=== PATIENT | female | born 1945 | race Hispanic/Latino ===

== ENCOUNTER 2023-05-05 20:30 | Inpatient (IN) | payer OTHER ==
--- OUTSIDE RECORDS SUMMARY | 2023-05-05 20:37 | XMS REPORT | Continuity of Care Document ---
:1945 Author Organization [facility] t Address [address] [facility] [address] [place] [address] Care Team Providers Name Role Phone Magdy Mehta Primary Care Physician Melissa Patel MA Attending Clinician Unavailable Tyson MONDRAGON, Magdy Perez Attending Clinician [phone] Ana MONDRAGON, Jonatan Bourgeois Attending Clinician KATHARINE LAUREANO Attending Clinician Unavailable Katharine Laureano DO Attending Clinician Dexter MONDRAGON, Sabrina Thomas Attending Clinician [phone] Liu Burton RN Attending Clinician Unavailable Giovanni MONDRAGON, Ward Duval Attending Clinician Massimo Daigle MD Attending Clinician Be Bush Attending Clinician Siria Ceron Attending Clinician KENDRA CULP Attending Clinician Unavailable Kendra Gleason Attending Clinician Tory Wallace MA Attending Clinician Unavailable Rocael Blair MD Attending Clinician Aide MONDRAGON, Bob Aquino Attending Clinician Joselin Salinas MA Attending Clinician Unavailable Donnie Bray DO Attending Clinician DONNIE BRAY Attending Clinician Unavailable Cristina Sage MD Attending Clinician Delmy Johnson MD Attending Clinician [phone] DALE PUENTES Attending Clinician Unavailable MD MAGDY MEHTA Attending Clinician UnavailNAVA Lowe Attending Clinician Unavailable BE BUSH Admitting Clinician Unavailable KENDRA CULP Admitting Clinician Unavailable BOB LOVE Admitting Clinician Unavailable MD MAGDY MEHTA Admitting Clinician UnavailNAVA Lowe Admitting Clinician Unavailable Payers Payer Name Policy Type Policy Number Effective Date Expiration Date Ortiz huang AETNA MEDICARE OUT [id number] 2020 OF 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 08-15 st 00:00: Hospita 00 l Rheumatoid Rheumatoid Disease Active 2018-07 M ethodi arthritis arthritis 08-15 st involving involving 00:00: Hosp ila multiple multiple 00 l sites sites Other Other Disease Active 2018-07 Methodi heart heart 08-15 st failure failure 00:00: Hospita 00 l FILI (acute FILI (acute Disease Active M ethodi kidney kidney 8-20 st injury) injury) 00:00: Hospita 00 l HTN HTN Disease Active 2018-0 Methodi (hypertens (hypertens 8-18 st ion) ion) 00:00: Hospita 00 l Hypothyroi Hypothyroi Disease Active M ethodi dism dism 818 st 00:00: Hospita 00 l Obesity Obesity Disease Active Methodi 8-18 st 00:00: Hospita 00 l CHF CHF Disease Active Methodi exacerbati exacerbati 8-17 st on on 00:00: Hospita 00 l Dizzy Dizzy Disease Active Methodi 2-10 st 00:00: Hospita 00 l Dizziness Dizziness Disease Active Met hodi 2-09 st 00:00: Hospita 00 l Cardiomyop Cardiomyop Disease Active Overview : Methodi athy athy Formattin st g of this Hospita note l might be different from the original. EF 30% (), 40% (07/31), 55% (09/06); N.Stress- ischemia stable (07/31), Dr Muhammad h Lupus Lupus Disease Active Overview: Method i Formattin st g of this Hospita note l might be different from the original. Hemolytic anemia, RAFAL +, MELISSA +, Dr Luke Prediabete Prediabete Disease Active Overview : Methodi s s Formattin st g of this Hospita note l might be different from the original. 6.1% (10/16) Allergies, Adverse Reactions, Alerts Allergy Allergy Status Severity Reaction(s) Onset Inactive Treating Comm ents Source Name Type Date Date Clinician Hydrocod Propensi Active Other - See insomnia Univers one ty to comments 7-15 ity of adverse 00:00: [place] reaction 00 Medical s Branch HYDROCOD DRUG Active Other-Cmnt Univ ers ONE INGREDI 7-15 ity of 00:00: [place] 00 Medical Branch Family History Family Member Diagnosis Comments Start Date Stop Date Source Natural father Heart disease [facility] Natural mother Heart disease [facility] Natural son [facility] Social History Social Habit Start Date Stop Date Quantity Comments Source Sexual orientation [facility] Gender identity [facility] Alcohol intake 2023-01-28 2023-01-28 Current [place] 00:00:00 00:00:00 non-drinker of Hospital alcohol (finding) History of Social 2023-01-28 2023-01-[address] function 00:00:00 00:00:00 Hospital Tobacco use and 2022-07-24 2022-07-24 Smokeless [place] exposure 00:00:00 00:00:00 tobacco non-user Hospital Exposure to 2022-07-04 2022-07-14 [facility] 10:53:00 [facility] Sex Ass[birth year] At [birth year] [place] 00:00:00 00:00:00 Hospital Smoking Status Start Date Stop Date Source Never smoked tobacco [facility] Medications Ordered Filled Start Stop Current Ordering Indication Dosage Frequency Signature Comments Components Source Medication Medication Date Date Medication? Clinician (SIG) Name Name lisinopriL 2023- Yes 10mg QD Take 1 Meth yvrose (PRINIVIL) 03-20 tablet (10 st 10 mg 00:00: 04:59 mg total) Hospit a tablet 00 :00 by mouth l daily. FENTanyl PF No 50ug 50 mcg, Un adal (SUBLIMAZE 03-07 Intramuscu it y of (PF)) 20:00: 20:19 lar, ONCE, [place] injection 00 :00 1 dose, On Medi aminta 50 mcg Sat Branch 03/07/23 at 1500, Routine ketorolac 2022- No 30mg 30 mg, Unive rs (TORADOL) 03-07 Intramuscu ity of injection 20:00: 20:19 [place], [place]CE[place] 30 mg 00 :00 1 dose, On Medical Sat Branch 03/07/23 at 1500, Routine dexamethaso 2022- No 10mg 10 mg, Uni vers ne sod phos 03-07 Oral, ity of PF 19:15: 20:19 ONCE, 1 [place] injection 00 :00 dose, On Medica l 10 mg [facility] Branch 03/07/23 at 1415, 1 mL predniSONE Yes 5mg QD Take 1 Metho di (DELTASONE) 7-12 tablet (5 st 5 mg tablet 08:12: mg total) H ospita 26 by mouth l daily. hydroxychlo Yes 200mg Q.5D Take 1 Met hodi roquine 7-[address] (PLAQUENIL) 08:12: (200 mg Hos owen 200 mg 26 total) by l tablet mouth 2 (two) times a day. Patient takes 200mg in the am and 100mg in the pm leflunomide 2022-0 Yes 20mg Q7D Take 1 Meth yvrose (ARAVA) 20 7-12 tablet (20 st MG tablet 08:12: mg total) Hos owen 26 by mouth l once a week. apixaban 2022-0 2023- [place] [id number] 5mg Q.5D Take 1 Metho di (ELIQUIS) 5 -06 25-12 tablet (5 st mg tablet 00:00: 04:59 mg total) Ho spita 00 :00 by mouth 2 l (two) times a day .treatment to prevent blood clots in chronic atrial fibrillati on. furosemide 2023- No 40mg QD Take 1 Meth yvrose (LASIX) 40 01-28-12 tablet (40 st mg tablet 00:00: 04:59 mg total) Ho spita 00 :00 by mouth l daily. furosemide 2022-0 2022- No 40mg QD Take 1 Meth yvrose (LASIX) 40 6-06 02-12 tablet (40 st mg tablet 00:00: 00:00 mg total) Ho spita 00 :00 by mouth l every morning. ondansetron 2022-0 Yes 4mg Q8H Take 1 Meth yvrose (Zofran) 4 6-20 tablet (4 st MG tablet 00:00: mg total) Hos owen 00 by mouth l every 8 (eight) hours as needed for nausea or vomiting. furosemide 2022-0 2022- No 20mg QD Take 1 Meth yvrose (LASIX) 20 6-10 23-04 tablet (20 st mg tablet 17:28: 00:00 mg total) Ho spita 59 :00 by mouth l every morning. apixaban 2022-0 2022- [place] [id number] 5mg Q.5D Take 1 Metho di (ELIQUIS) 5 6- 07-12 tablet (5 st mg tablet 00:00: 00:00 mg total) Ho spita 00 :00 by mouth 2 l (two) times a day .treatment to prevent blood clots in chronic atrial fibrillati on. furosemide 2022-0 2022- No 40mg Q.5D Take 1 Meth yvrose (LASIX) 40 12-21- tablet (40 st mg tablet 00:00: 00:00 mg total) Ho spita 00 :00 by mouth 2 l (two) times a day for 30 days. sacubitriL- 2022- No 1{tbl} Q.5D Take 1 M ethodi valsartan 12-[address] (ENTRESTO) 00:00: 00:00 mouth 2 Hos owen 24-26 mg 00 :00 (two) l tablet per times a tablet day for 90 days. cefpodoxime 2022- No 200mg Q.5D Take 1 Me thodi (VANTIN) 12-21- tablet st 200 MG 00:00: 04:59 (200 mg Hospita tablet 00 :00 total) by l mouth 2 (two) times a day for 2 days. levothyroxi Yes TAKE 1 Meth yvrose ne 5-[address] (SYNTHROID) 00:00: MOUTH ONCE Hospita 150 mcg 00 DAILY IN l tablet THE MORNING lisinopriL 2022- No 10mg QD Take 1 Meth yvrose (PRINIVIL) 12-04- tablet (10 st 10 mg 00:00: 00:00 mg total) Hospit a tablet 00 :00 by mouth l daily. quinapriL 2022- No 10mg QD Take 1 Metho di (ACCUPRIL) - 05-26 tablet (10 st 10 MG 00:00: 00:00 mg total) Hospit a tablet 00 :00 by mouth l nightly. atorvastati Yes TAKE 1 Meth yvrose n (LIPITOR) 4-[address] 40 mg 00:00: MOUTH Hospita tablet 00 EVERY DAY l AT NIGHT quinapriL 2022-0 2022- No Take 1 Metho di (ACCUPRIL) 4-19 05-[address] 10 MG 00:00: 00:00 mouth Hospita tablet 00 :00 nightly l carvediloL Yes TAKE 1 Metho di (COREG) 25 4-[address] MG tablet 00:00: MOUTH Hospita 00 TWICE A l DAY WITH FOOD cyanocobala 2023-0 Yes 1000ug QD Take 1 Me thodi min 4-[address] (VITAMIN 00:00: (1,000 mcg Hos owen B-12) 1000 00 total) by l MCG tablet mouth daily. traMADoL 2022-0 Yes 50mg Q6H Take 1 Methodi (ULTRAM) 50 4-04 tablet (50 st mg tablet 00:00: mg total) Hos owen 00 by mouth l every 6 (six) hours as needed for moderate pain. gabapentin 2022-0 2023- No 600mg Q.[id number] Take 1 Methodi (NEURONTIN) 1-08 06-[id number] 600 mg 00:00: 00:00 3D (600 mg Hospita tablet 00 :00 total) by l mouth 3 (three) times a day. cyanocobala 2023-0 2023- No 1000ug Q30D Inject M ethodi min 1,000 1-06 01-06 1,[address] mcg/mL 12:33: 00:00 into the Hospit a injection 23 :00 shoulder, l thigh, or buttocks every 30 (thirty) days. cyanocobala 2023-0 2023- No 1000ug Q30D Inject M ethodi min 1,000 1-06 01-06 1,[address] mcg/mL 12:33: 00:00 into the Hospit a injection 23 :00 shoulder, l thigh, or buttocks every 30 (thirty) days. cyanocobala 2023-0 2023- No 1000ug Q30D Inject M ethodi min 1,000 1-06 01-06 1,[address] mcg/mL 12:33: 00:00 into the Hospit a injection 23 :00 shoulder, l thigh, or buttocks every 30 (thirty) days. cholecalcif 2023-0 Yes 4000U QD Take 2 Met hodi gumaro, 1-[address] vitamin D3, 00:00: (4,000 Hosp ila (VITAMIN 00 Units l D3) 2,000 total) by unit tablet mouth daily. cholecalcif 2023-0 Yes 4000U QD Take 2 Met hodi gumaro, 1-[address] vitamin D3, 00:00: (4,000 Hosp ila (VITAMIN 00 Units l D3) 2,000 total) by unit tablet mouth daily. cyanocobala 2023-0 Yes 2000ug QD Take 2 Me thodi min 1-[address] (VITAMIN 00:00: (2,000 mcg Hos owen B-12) 1000 00 total) by l MCG tablet mouth daily. cholecalcif 2023-0 Yes 4000U QD Take 2 Met hodi gumaro, 1-[address] vitamin D3, 00:00: (4,000 Hosp ila (VITAMIN 00 Units l D3) 2,000 total) by unit tablet mouth daily. cyanocobala 2023-0 Yes 2000ug QD Take 2 Me thodi min 1-[address] (VITAMIN 00:00: (2,000 mcg Hos owen B-12) 1000 00 total) by l MCG tablet mouth daily. cyanocobala 2023-0 2023- No 2000ug QD Take 2 M ethodi min 1-06 04-[address] (VITAMIN 00:00: 00:00 (2,000 mcg Ho spita B-12) 1000 00 :00 total) by l MCG tablet mouth daily. predniSONE 2023-0 Yes 5mg QD Take 5 mg Me thodi (DELTASONE) 1-[address] 5 mg tablet 09:56: daily. Hosp ila 51 l cyanocobala 2023-0 Yes 1000ug Q30D Inject Me thodi min 1,000 1-05 1,[address] mcg/mL 09:56: into the Hospita injection 51 shoulder, l thigh, or buttocks every 30 (thirty) days. hydroxychlo 2023-0 Yes 200mg Q.5D Take 200 M ethodi roquine 1-[address] (PLAQUENIL) 09:56: mouth 2 Hos owen 200 mg 51 (two) l tablet times a day. Patient takes 200mg in the am and 100mg in the pm leflunomide 2023-0 Yes 20mg Q7D Take 20 mg Methodi (ARAVA) 20 1-[address] MG tablet 09:56: once a Hospit a 51 week. l predniSONE 2023-0 Yes 5mg QD Take 5 mg Me thodi (DELTASONE) 1-[address] 5 mg tablet 09:56: daily. Hosp ila 51 l hydroxychlo 2023-0 Yes 200mg Q.5D Take 200 M ethodi roquine 1-[address] (PLAQUENIL) 09:56: mouth 2 Hos owen 200 mg 51 (two) l tablet times a day. Patient takes 200mg in the am and 100mg in the pm leflunomide 3-0 Yes 20mg Q7D Take 20 mg Methodi (ARAVA) 20 1-[address] MG tablet 09:56: once a Hospit a 51 week. l predniSONE 2022-0 Yes 5mg QD Take 5 mg Me thodi (DELTASONE) 1-[address] 5 mg tablet 09:56: daily. Hosp ila 51 l hydroxychlo 3-0 Yes 200mg Q.5D Take 200 M ethodi roquine 1-[address] (PLAQUENIL) 09:56: mouth 2 Hos owen 200 mg 51 (two) l tablet times a day. Patient takes 200mg in the am and 100mg in the pm leflunomide 3-0 Yes 20mg Q7D Take 20 mg Methodi (ARAVA) 20 1-[address] MG tablet 09:56: once a Hospit a 51 week. l predniSONE 2022-0 2022- No [id number] 2 tabs Methodi (DELTASONE) 07-[address] 20 mg 00:00: 05:59 dinner for Hospi ta tablet 00 :00 2 days, l then 1 tab with dinner for 2 days, then 1/2 tab with dinner for 2 days predniSONE 2022-0 3- No [id number] 2 tabs Methodi (DELTASONE) 07-[address] 20 mg 00:00: 05:59 dinner for Hospi ta tablet 00 :00 2 days, l then 1 tab with dinner for 2 days, then 1/2 tab with dinner for 2 days predniSONE 3-0 2023- No [id number] 2 tabs Methodi (DELTASONE) 07-[address] 20 mg 00:00: 05:59 dinner for Hospi ta tablet 00 :00 2 days, l then 1 tab with dinner for 2 days, then 1/2 tab with dinner for 2 days predniSONE 2023-0 3- No [id number] 2 tabs Methodi (DELTASONE) 07-[address] 20 mg 00:00: 05:59 dinner for Hospi ta tablet 00 :00 2 days, l then 1 tab with dinner for 2 days, then 1/2 tab with dinner for 2 days dexamethaso 2021-07 No 10mg 10 mg, Uni vers ne 09-14 Oral, ity of (DECADRON 16:15: 15:49 [place] 00 :00 dose, On Medic al injection [facility] 10 mg 07/14/22 at 1015, Routine ketorolac 2021-07 No 30mg 30 mg, Unive rs (TORADOL) 09-14 Intramuscu ity of injection 16:15: 15:50 lar, [place]CE, [place] 30 mg 00 :00 1 dose, On Medical [facility] 07/14/22 at 1015, Routine FENTanyl PF 2021-07 No 50ug 50 mcg, Un adal (SUBLIMAZE 09-14 Intramuscu it y of (PF)) 16:15: 15:49 lar, ONCE, [place] injection 00 :00 1 dose, On Medi aminta 50 mcg [facility] 07/14/22 at 1015, Routine gabapentin 2021- No 600mg Q.[id number] Take 600 Methodi (NEURONTIN) 01-[id number] 600 mg 14:31: 00:00 3D mouth 3 Hospita tablet 44 :00 (three) l times a day. gabapentin 2021- No 600mg Q.[id number] Take 600 Methodi (NEURONTIN) 01-[id number] 600 mg 14:31: 00:00 3D mouth 3 Hospita tablet 44 :00 (three) l times a day. gabapentin 2021- No 600mg Q.[id number] Take 600 Methodi (NEURONTIN) 01-[id number] 600 mg 14:31: 00:00 3D mouth 3 Hospita tablet 44 :00 (three) l times a day. gabapentin 2021- No 600mg Q.[id number] Take 600 Methodi (NEURONTIN) 01-[id number] 600 mg 14:31: 00:00 3D mouth 3 Hospita tablet 44 :00 (three) l times a day. gabapentin 2021-0 2021- No 600mg Q.[id number] Take 600 Methodi (NEURONTIN) 6-26 06-[id number] 600 mg 14:31: 00:00 3D mouth 3 Hospita tablet 44 :00 (three) l times a day. predniSONE 2022-0 Yes 5mg QD Take 5 mg Me thodi (DELTASONE) 6-[address] 5 mg tablet 14:31: daily. Hosp ila 40 l cyanocobala 2022-0 Yes 1000ug Q30D Inject Me thodi min 1,000 6-26 1,[address] mcg/mL 14:31: into the Hospita injection 40 shoulder, l thigh, or buttocks every 30 (thirty) days. hydroxychlo 2022-0 Yes 200mg Q.5D Take 200 M ethodi roquine 6-[address] (PLAQUENIL) 14:31: mouth 2 Hos owen 200 mg 40 (two) l tablet times a day. Patient takes 200mg in the am and 100mg in the pm leflunomide 2021-0 Yes 20mg Q7D Take 20 mg Methodi (ARAVA) 20 6-[address] MG tablet 14:31: once a Hospit a 40 week. l predniSONE 2-0 Yes 5mg QD Take 5 mg Me thodi (DELTASONE) 6-[address] 5 mg tablet 14:31: daily. Hosp ila 40 l cyanocobala 2022-0 Yes 1000ug Q30D Inject Me thodi min 1,000 6-26 1,[address] mcg/mL 14:31: into the Hospita injection 40 shoulder, l thigh, or buttocks every 30 (thirty) days. hydroxychlo 2022-0 Yes 200mg Q.5D Take 200 M ethodi roquine 6-[address] (PLAQUENIL) 14:31: mouth 2 Hos owen 200 mg 40 (two) l tablet times a day. Patient takes 200mg in the am and 100mg in the pm leflunomide 2022-0 Yes 20mg Q7D Take 20 mg Methodi (ARAVA) 20 6-[address] MG tablet 14:31: once a Hospit a 40 week. l traMADol 2021-0 2021- No 4{tbl} Q6H Take 4 Meth yvrose (ULTRAM) 50 6-26 06-26 tablets by s t mg tablet 12:50: 00:00 mouth Hospit a 14 :00 every 6 l (six) hours as needed. traMADol 2021- No 4{tbl} Q6H Take 4 Meth yvrose (ULTRAM) 50 6-26 06-26 tablets by s t mg tablet 12:50: 00:00 mouth Hospit a 14 :00 every 6 l (six) hours as needed. traMADol 2021- No 4{tbl} Q6H Take 4 Meth yvrose (ULTRAM) 50 6-26 06-26 tablets by s t mg tablet 12:50: 00:00 mouth Hospit a 14 :00 every 6 l (six) hours as needed. traMADol 2021- No 4{tbl} Q6H Take 4 Meth yvrose (ULTRAM) 50 6-26 06-26 tablets by s t mg tablet 12:50: 00:00 mouth Hospit a 14 :00 every 6 l (six) hours as needed. traMADol 2021- No 4{tbl} Q6H Take 4 Meth yvrose (ULTRAM) 50 6-26 06-26 tablets by s t mg tablet 12:50: 00:00 mouth Hospit a 14 :00 every 6 l (six) hours as needed. acetaminoph 2021-0 Yes 1000mg Q.[id number] Take 2 Methodi en 6- [id number] tablets st (TYLENOL) 00:00: 3D (1,000 mg Hos owen 500 MG 00 total) by l tablet mouth 3 (three) times a day as needed for mild pain or moderate pain. acetaminoph 2021-0 Yes 1000mg Q.[id number] Take 2 Methodi en 6-[id number] (TYLENOL) 00:00: 3D (1,000 mg Hos owen 500 MG 00 total) by l tablet mouth 3 (three) times a day as needed for mild pain or moderate pain. acetaminoph 2021-0 Yes 1000mg Q.[id number] Take 2 Methodi en 6-[id number] (TYLENOL) 00:00: 3D (1,000 mg Hos owen 500 MG 00 total) by l tablet mouth 3 (three) times a day as needed for mild pain or moderate pain. acetaminoph 2021-0 Yes 1000mg Q.[id number] Take 2 Methodi en - [id number] tablets st (TYLENOL) 00:00: 3D (1,000 mg Hos owen 500 MG 00 total) by l tablet mouth 3 (three) times a day as needed for mild pain or moderate pain. acetaminoph 0 Yes 1000mg Q.[id number] Take 2 Methodi en 6-[id number] (TYLENOL) 00:00: 3D (1,000 mg Hos owen 500 MG 00 total) by l tablet mouth 3 (three) times a day as needed for mild pain or moderate pain. acetaminoph 2022- No 1000mg Q.[id number] Take 2 Methodi en 01-12 04-[id number] (TYLENOL) 00:00: 00:00 3D (1,000 mg Ho spita 500 MG 00 :00 total) by l tablet mouth 3 (three) times a day as needed for mild pain or moderate pain. furosemide 2021- No Take 1 Meth yvrose (Lasix) 40 01-12-30 tablet (40 st mg tablet 00:00: 04:59 mg total) Ho spita 00 :00 by mouth 2 l (two) times a day for 5 days, THEN 1 tablet (40 mg total) daily for 90 days. furosemide 2021- No Take 1 Meth yvrose (Lasix) 40 01-12-30 tablet (40 st mg tablet 00:00: 04:59 mg total) Ho spita 00 :00 by mouth 2 l (two) times a day for 5 days, THEN 1 tablet (40 mg total) daily for 90 days. furosemide 2021- No Take 1 Meth yvrose (Lasix) 40 6- 09-30 tablet (40 st mg tablet 00:00: 04:59 mg total) Ho spita 00 :00 by mouth 2 l (two) times a day for 5 days, THEN 1 tablet (40 mg total) daily for 90 days. furosemide 2021- No Take 1 Meth yvrose (Lasix) 40 6- 09-30 tablet (40 st mg tablet 00:00: 04:59 mg total) Ho spita 00 :00 by mouth 2 l (two) times a day for 5 days, THEN 1 tablet (40 mg total) daily for 90 days. furosemide 2021- No Take 1 Meth yvrose (Lasix) 40 01-12 tablet (40 st mg tablet 00:00: 04:59 mg total) Ho spita 00 :00 by mouth 2 l (two) times a day for 5 days, THEN 1 tablet (40 mg total) daily for 90 days. gabapentin 400mg Q.5D Take 0.5 M ethodi (NEURONTIN) 01-[address] 800 mg 00:00: 04:59 (400 mg Hospita tablet 00 :00 total) by l mouth 2 (two) times a day for 30 days. traMADoL [id number] 50mg Q.5D Take 1 Metho di (ULTRAM) 50 01-12 tablet (50 s t mg tablet 00:00: 04:59 mg total) Ho spita 00 :00 by mouth 2 l (two) times a day as needed for moderate pain or severe pain for up to 30 days .chronic pain. gabapentin No 400mg Q.5D Take 0.5 M ethodi (NEURONTIN) 01-[address] 800 mg 00:00: 04:59 (400 mg Hospita tablet 00 :00 total) by l mouth 2 (two) times a day for 30 days. traMADoL 2021- [place] [id number] 50mg Q.5D Take 1 Metho di (ULTRAM) 50 01-12 tablet (50 s t mg tablet 00:00: 04:59 mg total) Ho spita 00 :00 by mouth 2 l (two) times a day as needed for moderate pain or severe pain for up to 30 days .chronic pain. gabapentin No 400mg Q.5D Take 0.5 M ethodi (NEURONTIN) 01-12- tablets st 800 mg 00:00: 04:59 (400 mg Hospita tablet 00 :00 total) by l mouth 2 (two) times a day for 30 days. [place] 2021- [place] [id number] 50mg Q.5D Take 1 Metho di (ULTRAM) 50 01-12-27 tablet (50 s t mg tablet 00:00: 04:59 mg total) Ho spita 00 :00 by mouth 2 l (two) times a day as needed for moderate pain or severe pain for up to 30 days .chronic pain. gabapentin 2021- No 400mg Q.5D Take 0.5 M ethodi (NEURONTIN) 01-12-[address] 800 mg 00:00: 04:59 (400 mg Hospita tablet 00 :00 total) by l mouth 2 (two) times a day for 30 days. traMADoL 2021- [place] [id number] 50mg Q.5D Take 1 Metho di (ULTRAM) 50 01-12-27 tablet (50 s t mg tablet 00:00: 04:59 mg total) Ho spita 00 :00 by mouth 2 l (two) times a day as needed for moderate pain or severe pain for up to 30 days .chronic pain. gabapentin 2021- No 400mg Q.5D Take 0.5 M ethodi (NEURONTIN) 01-12- tablets st 800 mg 00:00: 04:59 (400 mg Hospita tablet 00 :00 total) by l mouth 2 (two) times a day for 30 days. [place]MAD[place] 2021- [place] [id number] 50mg Q.5D Take 1 Metho di (ULTRAM) 50 01-12-27 tablet (50 s t mg tablet 00:00: 04:59 mg total) Ho spita 00 :00 by mouth 2 l (two) times a day as needed for moderate pain or severe pain for up to 30 days .chronic pain. quinapriL 2022- No 10mg QD Take 1 Metho di (ACCUPRIL) 10-25- tablet (10 st 10 MG 00:00: 00:00 mg total) Hospit a tablet 00 :00 by mouth l nightly. quinapriL 2022- No 10mg QD Take 1 Metho di (ACCUPRIL) 10-25- tablet (10 st 10 MG 00:00: 04:59 mg total) Hospit a tablet 00 :00 by mouth l nightly. quinapriL 2022-0 2023- No 10mg QD Take 1 Metho di (ACCUPRIL) 10-25- tablet (10 st 10 MG 00:00: 04:59 mg total) Hospit a tablet 00 :00 by mouth l nightly. quinapriL 2021-0 3- No 10mg QD Take 1 Metho di (ACCUPRIL) 10-25- tablet (10 st 10 MG 00:00: 04:59 mg total) Hospit a tablet 00 :00 by mouth l nightly. quinapriL 2021-0 3- No 10mg QD Take 1 Metho di (ACCUPRIL) 10-25- tablet (10 st 10 MG 00:00: 04:59 mg total) Hospit a tablet 00 :00 by mouth l nightly. quinapriL 2021-0 3- No 10mg QD Take 1 Metho di (ACCUPRIL) 10-25- tablet (10 st 10 MG 00:00: 04:59 mg total) Hospit a tablet 00 :00 by mouth l nightly. furosemide 2021-0 2022- No 20mg QD Take 1 Meth yvrose (LASIX) 20 10-25- tablet (20 st mg tablet 00:00: 00:00 mg total) Ho spita 00 :00 by mouth l daily. furosemide 2021-0 2- No 20mg QD Take 1 Meth yvrose (LASIX) 20 10-25- tablet (20 st mg tablet 00:00: 00:00 mg total) Ho spita 00 :00 by mouth l daily. furosemide 2-0 2022- No 20mg QD Take 1 Meth yvrose (LASIX) 20 10-25- tablet (20 st mg tablet 00:00: 00:00 mg total) Ho spita 00 :00 by mouth l daily. furosemide 2022-0 2022- No 20mg QD Take 1 Meth yvrose (LASIX) 20 10-25- tablet (20 st mg tablet 00:00: 00:00 mg total) Ho spita 00 :00 by mouth l daily. furosemide 2022-0 2022- No 20mg QD Take 1 Meth yvrose (LASIX) 20 10-25- tablet (20 st mg tablet 00:00: 00:00 mg total) Ho spita 00 :00 by mouth l daily. nitrofurant 2021- No [id number] 100mg Q.5D Take 1 Methodi oin, 10-[address] macrocrysta 00:00: 04:59 (100 mg Ho spita l-monohydra 00 :00 total) by l te, mouth 2 (Macrobid) (two) 100 MG times a capsule day for 7 days. nitrofurant 2021- No [id number] 100mg Q.5D Take 1 Methodi oin, 10-[address] macrocrysta 00:00: 04:59 (100 mg Ho spita l-monohydra 00 :00 total) by l te, mouth 2 (Macrobid) (two) 100 MG times a capsule day for 7 days. nitrofurant 2021- No [id number] 100mg Q.5D Take 1 Methodi oin, 10-[address] macrocrysta 00:00: 04:59 (100 mg Ho spita l-monohydra 00 :00 total) by l te, mouth 2 (Macrobid) (two) 100 MG times a capsule day for 7 days. nitrofurant 2021- No [id number] 100mg Q.5D Take 1 Methodi oin, 10-[address] macrocrysta 00:00: 04:59 (100 mg Ho spita l-monohydra 00 :00 total) by l te, mouth 2 (Macrobid) (two) 100 MG times a capsule day for 7 days. nitrofurant 2021- No [id number] 100mg Q.5D Take 1 [facility] oin, 10-[address] macrocrysta 00:00: 04:59 (100 mg Ho spita l-monohydra 00 :00 total) by l te, mouth 2 (Macrobid) (two) 100 MG times a capsule day for 7 days. levothyroxi 0 Yes 150ug QD Take 1 [facility] hodi ne 4-[address] (SYNTHROID) 00:00: (150 mcg Ho [facility]ita 150 mcg 00 total) by l tablet mouth every morning. levothyroxi 0 Yes 150ug QD Take 1 [facility] hodi ne 4-[address] (SYNTHROID) 00:00: (150 mcg Ho [facility]ita 150 mcg 00 total) by l tablet mouth every morning. levothyroxi 2021-0 Yes 150ug QD Take 1 [facility] hodi ne 4-[address] (SYNTHROID) 00:00: (150 mcg Ho spita 150 mcg 00 total) by l tablet mouth every morning. levothyroxi 2021-0 Yes 150ug QD Take 1 [facility]odi ne 4-[address] (SYNTHROID) 00:00: (150 mcg Ho spita 150 mcg 00 total) by l tablet mouth every morning. levothyroxi 2021-0 Yes 150ug QD Take 1 Met [facility]odi ne 4-[address] (SYNTHROID) 00:00: (150 mcg Ho spita 150 mcg 00 total) by l tablet mouth every morning. levothyroxi 2021-0 2023- No 150ug QD Take 1 Me thodi ne 4-05 05-[address] (SYNTHROID) 00:00: 00:00 (150 mcg H ospita 150 mcg 00 :00 total) by l tablet mouth every morning. atorvastati 0 Yes TAKE 1 Meth yvrose n (LIPITOR) 3-[address] 40 mg 00:00: MOUTH [facility]ospita tablet 00 EVERY DAY l AT NIGHT atorvastati 2021-0 Yes TAKE 1 Meth yvrose n (LIPITOR) 3-[address] 40 mg 00:00: MOUTH [facility]osp[facility] tablet 00 EVERY DAY l AT NIGHT atorvastati 2021-0 Yes TAKE 1 Meth yvrose n (LIPITOR) 3-[address] 40 mg 00:00: MOUTH [facility]ospita tablet 00 EVERY DAY l AT NIGHT atorvastati 2021-0 Yes TAKE 1 Meth yvrose n (LIPITOR) 3-[address] 40 mg 00:00: MOUTH [facility]ospita tablet 00 EVERY DAY l AT NIGHT atorvastati 2021-0 Yes TAKE 1 Meth yvrose n (LIPITOR) 3-[address] 40 mg 00:00: MOUTH [facility]ospita tablet 00 EVERY DAY l AT NIGHT atorvastati 2021-0 2023- No TAKE 1 [facility] n (LIPITOR) 3-29 04-[address] 40 mg 00:00: 00:00 MOUTH [facility]ospita tablet 00 :00 EVERY DAY l AT NIGHT spironolact 2022-0 2- No TAKE 1 Met hodi one 10-15-[address] (ALDACTONE) 00:00: 00:00 MOUTH [facility]osp [facility] 25 MG 00 :00 EVERY DAY l tablet spironolact 2-0 2- No TAKE 1 Met hodi one 10-15-[address] (ALDACTONE) 00:00: 00:00 MOUTH [facility] 25 MG 00 :00 EVERY DAY l tablet spironolact 2021-0 2021- No TAKE 1 Met hodi one 10-15-[address] (ALDACTONE) 00:00: 00:00 MOUTH [facility] 25 MG 00 :00 EVERY DAY l tablet spironolact 2021-0 2021- No TAKE 1 [facility] hodi one 10-15-[address] (ALDACTONE) 00:00: 00:00 MOUTH [facility] 25 MG 00 :00 EVERY DAY l tablet spironolact 2-0 2021- No TAKE 1 Met hodi one 10-15- TABLET BY st (ALDACTONE) 00:00: 00:00 MOUTH [facility] 25 MG 00 :00 EVERY DAY l tablet carvediloL 2-0 Yes TAKE 1 Metho di (COREG) 25 2-[address] MG tablet 00:00: MOUTH [facility]osp[facility] 00 TWICE A l DAY WITH FOOD carvediloL 2021-0 Yes TAKE 1 [facility]o di (COREG) 25 2-[address] MG tablet 00:00: MOUTH [facility]osp[facility] 00 TWICE A l DAY WITH FOOD carvediloL 2021-0 Yes TAKE 1 [facility]o di (COREG) 25 2-[address] MG tablet 00:00: MOUTH [facility]ospita 00 TWICE A l DAY WITH FOOD carvediloL 2-0 Yes TAKE 1 Metho di (COREG) 25 2-[address] MG tablet 00:00: MOUTH [facility]ospita 00 TWICE A l DAY WITH FOOD carvediloL 2-0 Yes TAKE 1 [facility]o di (COREG) 25 2-[address] MG tablet 00:00: MOUTH [facility]ospita 00 TWICE A l DAY WITH FOOD carvediloL 2022-0 3- No TAKE 1 Meth yvrose (COREG) 25 2-28 04-[address] MG tablet 00:00: 00:00 MOUTH Hospit a 00 :00 TWICE A l DAY WITH FOOD methocarbam No [id number] 500mg Take 1 [facility] oL 500 mg 07-24 4 tablet by [facility] of tablet 00:00: 05:59 mouth 3 [place] 00 :00 (three) Medical times Branch daily for 5 days. levothyroxi 2020-07 Yes 150ug QD Take 1 Met hodi ne 0-[address] (SYNTHROID) 00:00: (150 mcg Ho [facility] 150 mcg 00 total) by l tablet mouth every morning. levothyroxi 2020-07 Yes 150ug QD Take 1 [facility] ne 0-[address] (SYNTHROID) 00:00: (150 mcg [facility] 150 mcg 00 total) by l tablet mouth every morning. levothyroxi 2020-07- No 150ug QD Take 1 [facility] thodi ne 0-05 04-[address] (SYNTHROID) 00:00: 00:00 (150 mcg H [facility]spita 150 mcg 00 :00 total) by l tablet mouth every morning. levothyroxi 2020-07- No 150ug QD Take 1 Me thodi ne 0-05 04-[address] (SYNTHROID) 00:00: 00:00 (150 mcg H [facility]spita 150 mcg 00 :00 total) by l tablet mouth every morning. levothyroxi 2020-07- No 150ug QD Take 1 Me thodi ne 0-05 04-[address] (SYNTHROID) 00:00: 00:00 (150 mcg H [facility]spita 150 mcg 00 :00 total) by l tablet mouth every morning. levothyroxi 2020-07- No 150ug QD Take 1 Me thodi ne 0-05 04-[address] (SYNTHROID) 00:00: 00:00 (150 mcg H [facility]spita 150 mcg 00 :00 total) by l tablet mouth every morning. levothyroxi 2020-07- No 150ug QD Take 1 Me thodi ne 0-05 04-[address] (SYNTHROID) 00:00: 00:00 (150 mcg [facility] 150 mcg 00 :00 total) by l tablet mouth every morning. levothyroxi No 150ug QD Take 1 Me thodi ne 8-05 10-[address] (SYNTHROID) 00:00: 00:00 (150 mcg H [facility]ita 150 mcg 00 :00 total) by l tablet mouth every morning. levothyroxi 2020- No 150ug QD Take 1 Me thodi ne 02-21-[address] (SYNTHROID) 00:00: 00:00 (150 mcg H [facility]spita 150 mcg 00 :00 total) by l tablet mouth every morning. levothyroxi 2020- No 175ug QD TAKE 1 Me thodi ne 02-[address] (SYNTHROID) 00:00: 00:00 (175 MCG H ospita 175 mcg 00 :00 TOTAL) BY l tablet MOUTH EVERY MORNING. levothyroxi 2020- No 175ug QD TAKE 1 Me thodi ne 02-19-[address] (SYNTHROID) 00:00: 00:00 (175 MCG H ospita 175 mcg 00 :00 TOTAL) BY l tablet MOUTH EVERY MORNING. traMADol 0 Yes 4{tbl} Q6H Take 4 Metho di (ULTRAM) 50 4-[address] mg tablet 15:17: mouth Hospita 48 every 6 l (six) hours as needed. predniSONE Yes 5mg QD Take 5 mg Me thodi (DELTASONE) 4-[address] 5 mg tablet 15:17: daily. Hosp ila 48 l cyanocobala Yes 1000ug Q30D Inject Me thodi min 1,000 4-23 1,[address] mcg/mL 15:17: into the Hospita injection 48 shoulder, l thigh, or buttocks every 30 (thirty) days. gabapentin 2020-0 Yes 600mg [id number] Take 600 [facility] (NEURONTIN) 4-23 [id number] mg by s t 600 mg 15:17: 3D mouth 3 Hospita tablet 48 (three) l times a day. hydroxychlo 2020-0 Yes 200mg Q.5D Take 200 M ethodi roquine 4-[address] (PLAQUENIL) 15:17: mouth 2 Hos owen 200 mg 48 (two) l tablet times a day. leflunomide 2020-0 Yes 20mg Q7D Take 20 mg [facility] (ARAVA) 20 4-[address] MG tablet 15:17: once a Hospit a 48 week. l traMADol 0 Yes 4{tbl} Q6H Take 4 Metho di (ULTRAM) 50 4-[address] mg tablet 15:17: mouth Hospita 48 every 6 l (six) hours as needed. predniSONE 0 Yes 5mg QD Take 5 mg Me thodi (DELTASONE) 4-[address] 5 mg tablet 15:17: daily. Hosp ila 48 l cyanocobala 0 Yes 1000ug Q30D Inject Me thodi min 1,000 4-23 1,[address] mcg/mL 15:17: into the Hospita injection 48 shoulder, l thigh, or buttocks every 30 (thirty) days. gabapentin Yes 600mg Q.[id number] Take 600 [facility] (NEURONTIN) 4-23 [id number] mg by s t 600 mg 15:17: 3D mouth 3 Hospita tablet 48 (three) l times a day. hydroxychlo 0 Yes 200mg Q.5D Take 200 M ethodi roquine 4-[address] (PLAQUENIL) 15:17: mouth 2 Hos owen 200 mg 48 (two) l tablet times a day. leflunomide Yes 20mg Q7D Take 20 mg [facility] (ARAVA) 20 4-[address] MG tablet 15:17: once a Hospit a 48 week. l spironolact 2021- No 25mg QD Take 1 Met hodi one 10-05 tablet (25 st (ALDACTONE) 00:00: 00:00 mg total) Hospita 25 MG 00 :00 by mouth l tablet daily. atorvastati 2020-2021- No 40mg QD Take 1 Met hodi n (LIPITOR) 10-05 tablet (40 s t 40 mg 00:00: 00:00 mg total) Hospit a tablet 00 :00 by mouth l nightly. spironolact 2020-2021- No 25mg QD Take 1 Met hodi one 10-05 tablet (25 st (ALDACTONE) 00:00: 00:00 mg total) Hospita 25 MG 00 :00 by mouth l tablet daily. atorvastati 2020-2021- No 40mg QD Take 1 Met hodi n (LIPITOR) 10-05 tablet (40 s t 40 mg 00:00: 00:00 mg total) Hospit a tablet 00 :00 by mouth l nightly. spironolact 2021- No 25mg QD Take 1 Met hodi one 10-05 tablet (25 st (ALDACTONE) 00:00: 00:00 mg total) Hospita 25 MG 00 :00 by mouth l tablet daily. atorvastati 2020-2021- No 40mg QD Take 1 Met hodi n (LIPITOR) 10-05 tablet (40 s t 40 mg 00:00: 00:00 mg total) Hospit a tablet 00 :00 by mouth l nightly. spironolact 2021- No 25mg QD Take 1 Met hodi one 10-05 tablet (25 st (ALDACTONE) 00:00: 00:00 mg total) Hospita 25 MG 00 :00 by mouth l tablet daily. atorvastati 2021- No 40mg QD Take 1 Met hodi n (LIPITOR) 10-05 tablet (40 s t 40 mg 00:00: 00:00 mg total) Hospit a tablet 00 :00 by mouth l nightly. spironolact 2021- No 25mg QD Take 1 Met hodi one 10-05 tablet (25 st (ALDACTONE) 00:00: 00:00 mg total) Hospita 25 MG 00 :00 by mouth l tablet daily. atorvastati 2021- No 40mg QD Take 1 Met hodi n (LIPITOR) 10-05 tablet (40 s t 40 mg 00:00: 00:00 mg total) Hospit a tablet 00 :00 by mouth l nightly. spironolact 2021- No 25mg QD Take 1 Met hodi one 10-05 tablet (25 st (ALDACTONE) 00:00: 04:59 mg total) Hospita 25 MG 00 :00 by mouth l tablet daily. carvediloL 2021- No 25mg Q.5D Take 1 Meth yvrose (COREG) 25 3-19 03-20 tablet (25 st MG tablet 00:00: 04:59 mg total) Ho spita 00 :00 by mouth 2 l (two) times a day with meals. atorvastati 2021- No 40mg QD Take 1 Met hodi n (LIPITOR) 10-05-20 tablet (40 s t 40 mg 00:00: 04:59 mg total) Hospit a tablet 00 :00 by mouth l nightly. spironolact 2021- No 25mg QD Take 1 Met hodi one 10-05-20 tablet (25 st (ALDACTONE) 00:00: 04:59 mg total) Hospita 25 MG 00 :00 by mouth l tablet daily. carvediloL 2021- No 25mg Q.5D Take 1 Meth yvrose (COREG) 25 10-05-20 tablet (25 st MG tablet 00:00: 04:59 mg total) Ho spita 00 :00 by mouth 2 l (two) times a day with meals. atorvastati 2021- No 40mg QD Take 1 Met hodi n (LIPITOR) 10-05-20 tablet (40 s t 40 mg 00:00: 04:59 mg total) Hospit a tablet 00 :00 by mouth l nightly. carvediloL 2021- No 25mg Q.5D Take 1 Meth yvrose (COREG) 25 10-05 tablet (25 st MG tablet 00:00: 00:00 mg total) Ho spita 00 :00 by mouth 2 l (two) times a day with meals. carvediloL 2021- No 25mg Q.5D Take 1 Meth yvrose (COREG) 25 10-05-28 tablet (25 st MG tablet 00:00: 00:00 mg total) Ho spita 00 :00 by mouth 2 l (two) times a day with meals. carvediloL 2021- No 25mg Q.5D Take 1 Meth yvrose (COREG) 25 10-05-28 tablet (25 st MG tablet 00:00: 00:00 mg total) Ho spita 00 :00 by mouth 2 l (two) times a day with meals. carvediloL 2021- No 25mg Q.5D Take 1 Meth yvrose (COREG) 25 3-19 -28 tablet (25 st MG tablet 00:00: 00:00 mg total) Ho spita 00 :00 by mouth 2 l (two) times a day with meals. carvediloL 2021- No 25mg Q.5D Take 1 Meth yvrose (COREG) 25 3-19 -28 tablet (25 st MG tablet 00:00: 00:00 mg total) Ho spita 00 :00 by mouth 2 l (two) times a day with meals. levothyroxi 2020- No 175ug QD Take 1 Me prachi ne 3- 08-[address] (SYNTHROID) 00:00: 00:00 (175 mcg H ospita 175 mcg 00 :00 total) by l tablet mouth every morning. levothyroxi 2020- No 175ug QD Take 1 Me velarde ne 3- 08-[address] (SYNTHROID) 00:00: 00:00 (175 mcg H ospita 175 mcg 00 :00 total) by l tablet mouth every morning. levothyroxi 2020- No 175ug QD TAKE 1 Me velarde ne 2-26 03-[address] (SYNTHROID) 00:00: 00:00 (175 MCG H ospita 175 mcg 00 :00 TOTAL) BY l tablet MOUTH EVERY MORNING. levothyroxi 2020- No 175ug QD TAKE 1 Me velarde ne 2-26 03-[address] (SYNTHROID) 00:00: 00:00 (175 MCG H ospita 175 mcg 00 :00 TOTAL) BY l tablet MOUTH EVERY MORNING. promethazin 2020- No 12.5mg Q6H Take 12.5 Methodi e 2-03 02-[address] (PHENERGAN) 14:42: 00:00 mouth Hosp ila 12.5 MG 06 :00 every 6 l tablet (six) hours as needed for nausea or vomiting. promethazin Yes 1-2 Method i e 2-[address] (PHENERGAN) 00:00: mouth Hospi ta 12.5 MG 00 every 6 l tablet hours as needed for nausea. promethazin Yes 1-2 Method i e 2-03 tablets by (PHENERGAN) 00:00: mouth Hospi ta 12.5 MG 00 every 6 l tablet hours as needed for nausea. promethazin 2021- No 1-2 Metho di e 2-09 22- tablets by (PHENERGAN) 00:00: 00:00 mouth Hosp ila 12.5 MG 00 :00 every 6 l tablet hours as needed for nausea. promethazin 2021- No 1-2 Metho di e 2-09 22- tablets by (PHENERGAN) 00:00: 00:00 mouth [facility]osp ila 12.5 MG 00 :00 every 6 l tablet hours as needed for nausea. promethazin 2021- No 1-2 Metho di e 2-09 22- tablets by (PHENERGAN) 00:00: 00:00 mouth Hosp ila 12.5 MG 00 :00 every 6 l tablet hours as needed for nausea. promethazin 2021- No 1-2 Metho di e 2-09 22- tablets by (PHENERGAN) 00:00: 00:00 mouth Hosp ila 12.5 MG 00 :00 every 6 l tablet hours as needed for nausea. promethazin 2021- No 1-2 Metho di e 2-09 22- tablets by (PHENERGAN) 00:00: 00:00 mouth [facility]osp ila 12.5 MG 00 :00 every 6 l tablet hours as needed for nausea. promethazin 2020- No 25mg Q6H Take 1 Met hodi e 2-03 02-03 tablet (25 st (PHENERGAN) 00:00: 00:00 mg total) Hospita 25 MG 00 :00 by mouth l tablet every 6 (six) hours as needed for nausea or vomiting for up to 30 days. albuterol Yes [id number] 2{puff} Q6H Inhale 2 [facility] (PROAIR 2-[address] HFA) 90 00:00: every 6 Hospita mcg/actuati 00 (six) l on inhaler hours as needed for wheezing. albuterol Yes [id number] 2{puff} Q6H Inhale 2 [facility] (PROAIR 2-[address] HFA) 90 00:00: every 6 [facility]ospita mcg/actuati 00 (six) l on inhaler hours as needed for wheezing. albuterol Yes [id number] 2{puff} Q6H Inhale 2 [facility] (PROAIR 2-[address] HFA) 90 00:00: every 6 [facility]ospita mcg/actuati 00 (six) l on inhaler hours as needed for wheezing. albuterol Yes [id number] 2{puff} Q6H Inhale 2 [facility] (PROAIR 2-[address] HFA) 90 00:00: every 6 [facility]ospita mcg/actuati 00 (six) l on inhaler hours as needed for wheezing. albuterol Yes [id number] 2{puff} Q6H Inhale 2 [facility] (PROAIR 2-[address] HFA) 90 00:00: every 6 [facility]ospita mcg/actuati 00 (six) l on inhaler hours as needed for wheezing. albuterol Yes [id number] 2{puff} Q6H Inhale 2 [facility] (PROAIR 2-[address] HFA) 90 00:00: every 6 [facility]ospita mcg/actuati 00 (six) l on inhaler hours as needed for wheezing. albuterol Yes [id number] 2{puff} Q6H Inhale 2 [facility] (PROAIR 2-[address] HFA) 90 00:00: every 6 [facility]ospita mcg/actuati 00 (six) l on inhaler hours as needed for wheezing. albuterol 2022- No [id number] 2{puff} Q6H Inhale 2 [facility] (PROAIR 2-01 04-[address] HFA) 90 00:00: 00:00 every 6 Hospit a mcg/actuati 00 :00 (six) l on inhaler hours as needed for wheezing. levothyroxi 2020- No 175ug QD Take 1 Me thodi ne 08-[address] (SYNTHROID) 00:00: 00:00 (175 mcg H ospita 175 mcg 00 :00 total) by l tablet mouth every morning. levothyroxi 2020- No 175ug QD Take 1 Me thodi ne 08-[address] (SYNTHROID) 00:00: 00:00 (175 mcg H ospita 175 mcg 00 :00 total) by l tablet mouth every morning. cholecalcif 2019- Yes [id number] Q7D Take 1 Me velarde gumaro, 2- tablet st vitamin D3, 00:00: (50,000 Hos owen 1,250 mcg 00 Units l (50,000 total) by unit) mouth once tablet a week. cholecalcif 2019-07 Yes [id number] Q7D Take 1 Me velarde gumaro, 2- tablet st vitamin D3, 00:00: (50,000 Hos owen 1,250 mcg 00 Units l (50,000 total) by unit) mouth once tablet a week. cholecalcif 2019-07 Yes [id number] Q7D Take 1 Me velarde gumaro, 08-[address] vitamin D3, 00:00: (50,000 Hos owen 1,250 mcg 00 Units l (50,000 total) by unit) mouth once tablet a week. cholecalcif 2019-07 Yes [id number] Q7D Take 1 Me velarde gumaro, 08-[address] vitamin D3, 00:00: (50,000 Hos owen 1,250 mcg 00 Units l (50,000 total) by unit) mouth once tablet a week. cholecalcif 2019-07 Yes [id number] Q7D Take 1 Me velarde gumaro, 08-[address] vitamin D3, 00:00: (50,000 Hos owen 1,250 mcg 00 Units l (50,000 total) by unit) mouth once tablet a week. cholecalcif 2019-2022- No [id number] Q7D Take 1 M anishodi gumaro, 207-[address] vitamin D3, 00:00: 00:00 (50,000 Ho spita 1,250 mcg 00 :00 Units l (50,000 total) by unit) mouth once tablet a week. cholecalcif 2019-07- No [id number] Q7D Take 1 M ethodi gumaro, 207-[address] vitamin D3, 00:00: 00:00 (50,000 Ho spita 1,250 mcg 00 :00 Units l (50,000 total) by unit) mouth once tablet a week. cholecalcif 2019-07 [id number] Q7D Take 1 M ethodi gumaro, 08-[address] vitamin D3, 00:00: 00:00 (50,000 Ho spita 1,250 mcg 00 :00 Units l (50,000 total) by unit) mouth once tablet a week. levothyroxi 2019-07 No 175ug QD Take 1 Me thodi ne 08-[address] (SYNTHROID) 00:00: 00:00 (175 mcg H ospita 175 mcg 00 :00 total) by l tablet mouth every morning. furosemide No 40mg QD Take 1 Meth yvrose (LASIX) 40 -06 10- tablet (40 st mg tablet 00:00: 04:59 mg total) Ho spita 00 :00 by mouth l daily. furosemide 40mg QD Take 1 Meth yvrose (LASIX) 40 -06 10- tablet (40 st mg tablet 00:00: 04:59 mg total) Ho spita 00 :00 by mouth l daily. carvediloL No 25mg Q.5D Take 1 Meth yvrose (COREG) 25 -06 10-19 tablet (25 st MG tablet 00:00: 00:00 mg total) Ho spita 00 :00 by mouth 2 l (two) times a day with meals. atorvastati No 40mg QD Take 1 Met hodi n (LIPITOR) -06 10-19 tablet (40 s t 40 MG 00:00: 00:00 mg total) Hospit a tablet 00 :00 by mouth l nightly. spironolact No 25mg QD Take 1 Met hodi one -06 10-19 tablet (25 st (ALDACTONE) 00:00: 00:00 mg total) Hospita 25 MG 00 :00 by mouth l tablet daily. carvediloL No 25mg Q.5D Take 1 Meth yvrose (COREG) 25 3-20 -19 tablet (25 st MG tablet 00:00: 00:00 mg total) Ho spita 00 :00 by mouth 2 l (two) times a day with meals. atorvastati 2020-0 2021- No 40mg QD Take 1 Met hodi n (LIPITOR) -20 -19 tablet (40 s t 40 MG 00:00: 00:00 mg total) Hospit a tablet 00 :00 by mouth l nightly. spironolact 2020- No 25mg QD Take 1 Met hodi one -06 10-19 tablet (25 st (ALDACTONE) 00:00: 00:00 mg total) Hospita 25 MG 00 :00 by mouth l tablet daily. levothyroxi 2018-07 Yes 175ug Take 175 U nivers ne 175 mcg 2-04 mcg by ity of tablet 17:42: mouth [place] [address] every Medical morning. Branch hydroxychlo 2018-07 Yes 200mg Take 200 U nivers roquine 200 2-04 mg by ity of mg tablet 17:42: mouth 2 [place] [address] (two) Medical times Branch daily. traMADol 50 2018-07 Yes 50mg Take 50 mg [facility] mg tablet 2-04 by mouth ity of 17:42: every 6 [place] [address] (six) Medical hours as Branch needed for Pain (scale 4-6). ROSUVASTATI 2018-07 Yes Take by Uni vers N CALCIUM 2-04 mouth. ity of (CRESTOR 17:42: [facility] [place] [facility]) Medical Branch furosemide 2018-07 Yes 40mg Take 40 mg U nivers (LASIX) 40 2-04 by mouth ity o f mg tablet 17:42: daily. [address] Branch Potassium 2018-07 [facility]- 2-04 mouth. ity of 99) 99 mg 17:42: [place] [facility] Branch ERGOCALCIFE 2018-07 Yes Take by Uni vers ROL, 2-04 mouth. ity of VITAMIN D2, 17:42: [place] (VITAMIN D 13 Medical ORAL) Branch Vitamin B 2018-07 Yes Take [facility] Complex 2-04 mouth. ity of No.12-Niaci 17:42: [place] n (RABANO 13 Medical YODADO) 50 Branch mg/15 mL Liqd PREDNISONE 2018- Yes 5mg Take 5 mg Un adal INTENSOL 2-04 by mouth ity of ORAL 17:42: daily. [place] [address] Medical Branch gabapentin 2018-07 Yes 600mg Take 600 Un adal 600 mg 2-04 mg by ity of tablet 17:42: mouth 2 [place] [address] (two) Medical times Branch daily. carvedilol 2018-07 Yes 25mg Take 25 mg U nivers 25 mg 2-04 by mouth 2 ity of tablet 17:42: (two) [place] [address] times Medical daily. Branch atorvastati 2018-07 Yes 40mg Take 40 mg Univers n 40 mg 2-04 by mouth ity of tablet 17:42: at [place] [address] bedtime. Medical Branch levothyroxi 2018-07 Yes 175ug Take 175 U nivers ne 175 mcg 2-04 mcg by ity of tablet 17:42: mouth [place] [address] every Medical morning. Branch hydroxychlo 2018-07 Yes 200mg Take 200 U nivers roquine 200 2-04 mg by ity of mg tablet 17:42: mouth 2 [place] [address] (two) Medical times Branch daily. traMADol 50 2018-07 Yes 50mg Take 50 mg [facility] mg tablet 2-04 by mouth ity of 17:42: every 6 [place] [address] (six) Medical hours as Branch needed for Pain (scale 4-6). ROSUVASTATI 2018-07 Yes Take by Uni vers N CALCIUM 2-04 mouth. ity of (CRESTOR 17:42: [facility] [place] [facility]) Medical Branch furosemide 2018-07 Yes 40mg Take 40 mg U nivers (LASIX) 40 2-04 by mouth ity o f mg tablet 17:42: daily. [address] Branch Potassium 2018-[address] [facility] (POTASSIUM- 2-04 mouth. ity of 99) 99 mg 17:42: [place] Tab [address] [place] [address] Branch ERGOCALCIFE 2018-07 Yes Take by Uni vers ROL, 2-04 mouth. ity of VITAMIN D2, 17:42: [place] (VITAMIN D 13 Medical ORAL) Branch Vitamin B 2018- Yes Take by [facility] rs Complex 2-04 mouth. ity of No.12-Niaci 17:42: [facility] (RABANO 13 Medical YODADO) 50 Branch mg/15 mL Liqd PREDNISONE 2018- Yes 5mg Take 5 mg Un adal INTENSOL 2-04 by mouth ity of ORAL 17:42: daily. [place] [address] Medical Branch gabapentin 2018-07 Yes 600mg Take 600 Un adal 600 mg 2-04 mg by ity of tablet 17:42: mouth 2 [place] [address] (two) Medical times Branch daily. carvedilol 2019-1 Yes 25mg Take 25 mg U nivers 25 mg 2-04 by mouth 2 ity of tablet 17:42: (two) [place] [address] times Medical daily. Branch atorvastati 2018-07 Yes 40mg Take 40 mg Univers n 40 mg 2-04 by mouth ity of tablet 17:42: at [place] [address] bedtime. Medical Branch levothyroxi 2018-07 Yes 175ug Take 175 U nivers ne 175 mcg 2-04 mcg by ity of tablet 17:42: mouth [place] [address] every Medical morning. Branch hydroxychlo 2018-07 Yes 200mg Take 200 U nivers roquine 200 2-04 mg by ity of mg tablet 17:42: mouth 2 [place] [address] (two) Medical times Branch daily. traMADol 50 2018-07 Yes 50mg Take 50 mg Univers mg tablet 2-04 by mouth ity of 17:42: every 6 [place] [address] (six) Medical hours as Branch needed for Pain (scale 4-6). ROSUVASTATI 2018-07 Yes Take by Uni vers N CALCIUM 2-04 mouth. ity of (CRESTOR 17:42: [place] BRAVE) Medical Branch furosemide 2018-07 Yes 40mg Take 40 mg U nivers (LASIX) 40 2-04 by mouth ity o f mg tablet 17:42: daily. [place] [address] Medical Branch Potassium 2018-07 Yes Take by [facility] rs (POTASSIUM- 2-04 mouth. ity of 99) 99 mg 17:42: [place] Tab 13 Medical Branch ERGOCALCIFE 2018-07 Yes Take by Uni vers ROL, 2-04 mouth. ity of VITAMIN D2, 17:42: [place] (VITAMIN D 13 Medical ORAL) Branch Vitamin B 2018-07 Yes Take by [facility] rs Complex 2-04 mouth. ity of No.12-Niaci 17:42: [place] n (RABANO 13 Medical YODADO) 50 Branch mg/15 mL Liqd PREDNISONE 2018- Yes 5mg Take 5 mg Un adal INTENSOL 2-04 by mouth ity of ORAL 17:42: daily. [place] [address] Medical Branch gabapentin 2018-07 Yes 600mg Take 600 Un adal 600 mg 2-04 mg by ity of tablet 17:42: mouth 2 [place] [address] (two) Medical times Branch daily. carvedilol 2018-07 Yes 25mg Take 25 mg U nivers 25 mg 2-04 by mouth 2 ity of tablet 17:42: (two) [place] [address] times Medical daily. Branch atorvastati 2018-07 Yes 40mg Take 40 mg Univers n 40 mg 2-04 by mouth ity of tablet 17:42: at [place] 13 bedtime. Medical Branch codeine-gua 2018-07 Yes [id number] 5mL Take 5 mL Univers ifenesin 2-04 by mouth ity of 10-100 mg/5 00:00: every 4 [place] as mL solution 00 (four) Medica l hours as Branch needed for Cough. codeine-gua 2018-07 Yes [id number] 5mL Take 5 mL [facility] ifenesin 2-04 by mouth ity of 10-100 mg/5 00:00: every 4 [facility] as mL solution 00 (four) Medica l hours as Branch needed for Cough. codeine-a 2018-07 Yes [id number] 5mL Take 5 mL [facility] ifenesin 2-04 by mouth ity of 10-100 mg/5 00:00: every 4 [place] as mL solution 00 (four) [id number] 600mg Q.5D Take 1 [facility] ([facility]-[address] 600 mg 00:00: (600 mg [facility] tablet 00 total) by l extended mouth 2 release (two) 12hr [facility] Yes [id number] 600mg Q.5D Take 1 [facility] ([facility]) 08-[address] 600 mg 00:00: (600 mg [facility] tablet 00 total) by l extended mouth 2 release (two) 12hr times a day. guaiFENesin 2018-07- No [id number] 600mg Q.5D Take 1 [facility] ([facility]) 08-[address] 600 mg 00:00: 00:00 (600 mg [facility] tablet 00 :00 total) by l extended mouth 2 release (two) 12hr times a day. guaiFENesin 2018-07- No [id number] 600mg Q.5D Take 1 [facility] ([facility]) 08-[address] 600 mg 00:00: 00:00 (600 mg [facility] tablet 00 :00 total) by l extended mouth 2 release (two) 12hr times a day. guaiFENesin 2018-07- No [id number] 600mg Q.5D Take 1 [facility] ([facility] 08-[address] 600 mg 00:00: 00:00 (600 mg [facility] tablet 00 :00 total) by l extended mouth 2 release (two) 12hr times a day. tazaiFENesin 2018-07- No [id number] 600mg Q.5D Take 1 [facility] (MUCINEX) 08-[address] 600 mg 00:00: 00:00 (600 mg [facility] tablet 00 :00 total) by l extended mouth 2 release (two) 12hr times a day. guaiFENesin 2018-07- No [id number] 600mg Q.5D Take 1 [facility] (MUCINEX) 08-[address] 600 mg 00:00: 00:00 (600 mg [facility] tablet 00 :00 total) by l extended mouth 2 release (two) 12hr times a day. albuterol 2018-07- No [id number] 2{puff} Q6H Inhale 2 [facility] (PROAIR 08-[address] HFA) 90 00:00: 00:00 every 6 Hospit a mcg/actuati 00 :00 (six) l on inhaler hours as needed for wheezing. Immunizations Ordered Immunization Filled Date Status Comments Sour ce Name Immunization Name FLUZONE HIGH-DOSE 2021-05-20 Completed Meth odist 00:00:00 [facility] FLUZONE HIGH-DOSE 2021-05-20 Completed Meth odist 00:00:00 [facility] FLUZONE HIGH-DOSE 2021-05-20 Completed Meth odist 00:00:00 [facility] FLUZONE HIGH-DOSE 2021-05-20 Completed Meth odist 00:00:00 [facility] FLUZONE HIGH-DOSE 2021-05-20 Completed Meth odist 00:00:00 [facility] 2020-08-20 Completed Druze 00:00:00 [facility] 2020-08-20 Completed Druze 00:00:00 [facility] 2020-08-20 Completed Druze 00:00:00 [facility] 2020-08-20 Completed [facility]ze 00:00:00 [facility] 2020-08-20 Completed [facility] 00:00:00 [facility] 2020-08-20 Completed [facility] 00:00:00 [facility] Bamlanivimab 2020-08-20 Completed [facility] 00:00:00 [facility] PFIZER COVID-19 MRNA 2020-08-01 Completed [facility] VACCINATION 00:00:00 Hospital PFIZER COVID-19 MRNA 2020-08-01 Completed [facility] VACCINATION 00:00:00 Hospital PFIZER COVID-19 MRNA 2020-08-01 Completed [facility] VACCINATION 00:00:00 Hospital PFIZER COVID-19 MRNA 2020-08-01 Completed [facility] VACCINATION 00:00:00 [facility] PFIZER COVID-19 MRNA 2020-08-01 Completed [facility] VACCINATION 00:00:00 Hospital PFIZER COVID-19 MRNA 2020-08-01 Completed [facility] VACCINATION 00:00:00 [facility] PFIZER COVID-19 MRNA 2020-08-01 Completed [facility] VACCINATION 00:00:00 [facility] FLUZONE HIGH-DOSE PF 2020-05-20 Completed [facility] 00:00:00 Hospital FLUZONE HIGH-DOSE PF 2020-05-20 Completed [facility] 00:00:00 Hospital FLUZONE HIGH-DOSE PF 2020-05-20 Completed [facility] 00:00:00 Hospital FLUZONE HIGH-DOSE PF 2020-05-20 Completed [facility] 00:00:00 Hospital FLUZONE HIGH-DOSE PF 2020-05-20 Completed [facility] 00:00:00 Hospital FLUZONE HIGH-DOSE PF 2020-05-20 Completed [facility] 00:00:00 Hospital FLUZONE HIGH-DOSE PF 2020-05-20 Completed [facility] 00:00:00 Hospital FLUZONE HIGH-DOSE PF 2020-04-22 Completed [facility] 00:00:00 Hospital FLUZONE HIGH-DOSE PF 2020-04-22 Completed [facility] 00:00:00 Hospital FLUZONE HIGH-DOSE PF 2020-04-22 Completed [facility] 00:00:00 Hospital FLUZONE HIGH-DOSE PF 2020-04-22 Completed [facility] odist 00:00:00 Hospital FLUZONE HIGH-DOSE PF 2020-04-22 Completed Meth odist 00:00:00 Hospital FLUZONE HIGH-DOSE PF 2020-04-22 Completed [facility] 00:00:00 Hospital FLUZONE HIGH-DOSE PF 2020-04-22 Completed [facility] 00:00:00 Hospital FLUZONE HIGH-DOSE PF 2019-06-19 Completed [facility] 00:00:00 Hospital FLUZONE HIGH-DOSE PF 2019-06-19 Completed [facility] 00:00:00 Hospital FLUZONE HIGH-DOSE PF 2019-06-19 Completed [facility] 00:00:00 Hospital FLUZONE HIGH-DOSE PF 2019-06-19 Completed [facility] 00:00:00 Hospital FLUZONE HIGH-DOSE PF 2019-06-19 Completed [facility] 00:00:00 Hospital FLUZONE HIGH-DOSE PF 2019-06-19 Completed [facility] 00:00:00 Hospital FLUZONE HIGH-DOSE PF 2019-06-19 Completed [facility] 00:00:00 Hospital Pneumococcal 2019-04-24 Completed [facility] Polysaccharide 00:00:00 Hospital Pneumococcal 2019-04-24 Completed [facility] Polysaccharide 00:00:00 Hospital Pneumococcal 2019-04-24 Completed [facility] Polysaccharide 00:00:00 Hospital Pneumococcal 2019-04-24 Completed [facility] Polysaccharide 00:00:00 Hospital Pneumococcal 2019-04-24 Completed [facility] Polysaccharide 00:00:00 Hospital Pneumococcal 2019-04-24 Completed [facility] Polysaccharide 00:00:00 Hospital Pneumococcal 2019-04-24 Completed [facility] Polysaccharide 00:00:00 Hospital Tdap 2018-07-20 Completed [facility] 00:00:00 Hospital Tdap 2018-07-20 Completed [facility] 00:00:00 Hospital Tdap 2018-07-20 Completed [facility] 00:00:00 Hospital Tdap 2018-07-20 Completed [facility] 00:00:00 Hospital Tdap 2018-07-20 Completed [facility] 00:00:00 [facility] FLUZONE HIGH-DOSE PF Unknown Completed [facility] FLUZONE HIGH-DOSE PF Unknown Completed [facility] Pneumococcal Unknown Completed [facility] Polysaccharide [facility] FLUZONE HIGH-DOSE PF Unknown Completed [facility] PFIZER COVID-19 MRNA Unknown Completed [facility] VACCINATION [facility]lanivimab [facility] H[facility]SE [facility] Unknown Completed [facility] Tdap [facility] FLUZONE H[facility]-DOSE PF Unknown Completed [facility] MODERNA COVID-19 Unknown Completed [facility] VACCINATION Vital Signs Vital Name Observation Time Observation Value Comments Source Systolic blood 2023-03-07 20:26:46 178 mm[Hg] [facility] Diastolic blood 2023-03-07 20:26:46 88 mm[Hg] [facility] Heart rate 2023-03-07 20:26:46 80 /min [facility] Respiratory rate 2023-03-07 20:26:46 20 /min [facility] Oxygen saturation in 2023-03-07 20:26:46 98 /min [facility] blood by [facility] P[facility] oxim[facility] Body temperature 2023-03-07 19:04:00 36.78 Mily [facility] Body height 2023-03-07 19:04:00 157.5 cm [facility] Body weight 2023-03-07 19:04:00 97.523 kg [facility] BMI 2023-03-07 19:04:00 39.32 kg/m2 [facility] Systolic blood 2022-07-14 14:47:00 129 mm[Hg] [facility] Diastolic blood 2022-07-14 14:47:00 66 mm[Hg] [facility] Heart rate 2022-07-14 14:47:00 69 /min [facility] Body temperature 2022-07-14 14:47:00 36.89 Mily [facility] Respiratory rate 2022-07-14 14:47:00 21 /min [facility] Body weight 2022-07-14 14:47:00 86.637 kg [facility] BMI 2022-07-14 14:47:00 36.09 kg/m2 [facility] Oxygen saturation in 2022-07-14 14:47:00 97 /min [facility] [place] [facility] Pulse oxim[facility] Systolic blood 2021-07-24 21:52:00 172 mm[Hg] [facility] Diastolic blood 2021-07-24 21:52:00 84 mm[Hg] [facility] Heart rate 2021-07-24 21:52:00 61 /min [facility] Body temperature 2021-07-24 21:52:00 36.72 Mily [facility] Respiratory rate 2021-07-24 21:52:00 16 /min [facility] Oxygen saturation in 2021-07-24 21:52:00 98 /min University Arterial blood by [facility] Pulse oximetry [place] Body weight 2021-07-24 19:48:00 86.637 kg [facility] BMI 2021-07-24 19:48:00 36.09 kg/m2 [facility] Systolic blood 2023-03-20 16:08:00 173 mm[Hg] [facility] pressure Diastolic blood 2023-03-20 16:08:00 77 mm[Hg] [facility] pressure Heart rate 2023-03-20 16:08:00 83 /min [facility] Body height 2023-03-20 16:08:00 154.9 cm [facility] Body weight 2023-03-20 16:08:00 94.802 kg [facility] BMI 2023-03-20 16:08:00 39.49 kg/m2 [facility] Oxygen saturation in 2023-01-28 13:13:00 92 /min [facility] Arterial blood by Pulse oximetry Body temperature 2023-01-06 15:46:00 37.06 Mily [facility] Respiratory rate 2022-12-21 16:58:06 18 /min [facility] Systolic blood 2022-07-24 15:55:00 124 mm[Hg] [facility] pressure Diastolic blood 2022-07-24 15:55:00 79 mm[Hg] [facility] pressure Heart rate 2022-07-24 15:55:00 79 /min [facility] Body temperature 2022-07-24 15:55:00 36.67 Mily [facility] Respiratory rate 2022-07-24 15:55:00 16 /min [facility] Body height 2022-07-24 15:55:00 157.5 cm [facility] Body weight 2022-07-24 15:55:00 97.523 kg [facility] BMI 2022-07-24 15:55:00 39.32 kg/m2 [facility] Oxygen saturation in 2022-07-24 15:55:00 97 /min [facility] Arterial blood by Pulse oximetry Heart rate 2022-01-12 17:36:00 67 /min [facility] Respiratory rate 2022-01-12 17:36:00 18 /min [facility] Systolic blood 2022-01-12 17:25:00 112 mm[Hg] [facility] pressure Diastolic blood 2022-01-12 17:25:00 60 mm[Hg] [facility] pressure Body temperature 2022-01-12 17:25:00 36.83 Mily [facility] Oxygen saturation in 2022-01-12 17:25:00 97 /min [facility] Arterial blood by Pulse oximetry Body weight 2022-01-11 11:12:00 98.521 kg [facility] BMI 2022-01-11 11:12:00 39.73 kg/m2 [facility] Body height 2022-01-10 18:08:00 157.5 cm [facility] Systolic blood 2021-07-07 21:59:20 156 mm[Hg] [facility] pressure Diastolic blood 2021-07-07 21:59:20 74 mm[Hg] [facility] pressure Heart rate 2021-07-07 21:59:20 71 /min [facility] Respiratory rate 2021-07-07 21:59:20 14 /min [facility] Oxygen saturation in 2021-07-07 21:59:20 96 /min [facility] Arterial blood by Pulse oximetry Body temperature 2021-07-07 20:59:27 36.61 Mily [facility] Body height 2021-04-22 19:22:00 157.5 cm [facility] Body weight 2021-04-22 19:22:00 97.977 kg [facility] BMI 2021-04-22 19:22:00 39.51 kg/m2 [facility] Procedures Procedure Date / Time Performing Clinician Source Performed ECG 12-LEAD 2023-01-28 13:18:24 Jonatan Perez [facility] US ABDOMINAL LIMITED 2023-01-09 17:15:21 Magdy Mehta [facility] Ana URINE CULTURE 2023-01-06 16:34:00 Tyson Magdy [facility] CBC WITH PLATELET AND 2023-01-06 16:34:00 [facility] DIFFERENTIAL Perez BASIC METABOLIC PANEL 2023-01-06 16:34:00 [facility] Perez THYROID STIMULATING 2023-01-06 16:34:00 [facility] HORMONE Perez URINALYSIS, AUTOMATED 2023-01-06 16:34:00 [facility] WITH MICROSCOPY Perez HEPATIC FUNCTION PANEL 2023-01-06 16:34:00 [facility] Perez LIPASE LEVEL 2023-01-06 16:34:00 [facility] Perez ESTIMATED GFR 2023-01-06 16:34:00 [facility] DURABLE MEDICAL EQUIPMENT 2022-12-21 18:17:28 [facility] WITH PLATELET AND 2022-12-21 10:32:00 Dionna [facility] DIFFERENTIAL COMPREHENSIVE METABOLIC 2022-12-21 10:32:00 Dionna [facility] PANEL ESTIMATED GFR 2022-12-21 10:32:00 Siria Ceron [facility] spital MRI BRAIN WO CONTRAST 2022-12-20 22:11:00 [facility] US CAROTID DUPLEX 2022-12-20 16:53:43 [facility] BILATERAL BLOOD CULTURE, AEROBIC & 2022-12-20 10:38:00 [facility] ANAEROBIC CT HEAD WO CONTRAST 2022-12-19 15:50:26 Siria Ceron [facility] BASIC METABOLIC PANEL 2022-12-19 09:53:00 [facility] CBC WITH PLATELET AND 2022-12-19 09:53:00 [facility] DIFFERENTIAL ESTIMATED GFR 2022-12-19 09:53:00 [facility] NT-PROBNP 2022-12-19 09:53:00 Maureen Jackson spital XR CHEST 1 VW PORTABLE 2022-12-18 17:09:[facility] 12-LEAD 2022-12-18 12:44:03 [facility] BASIC METABOLIC PANEL 2022-12-18 11:13:00 [facility] CBC WITH PLATELET AND 2022-12-18 11:13:00 [facility] DIFFERENTIAL ESTIMATED GFR 2022-12-18 11:13:00 [facility] spital ECG 12-LEAD 2022-12-17 12:17:58 [facility] BASIC METABOLIC PANEL 2022-12-17 09:32:00 [facility] CBC WITH PLATELET AND 2022-12-17 09:32:00 [facility] DIFFERENTIAL ESTIMATED GFR 2022-12-17 09:32:00 [facility] spital URINE CULTURE 2022-12-17 01:11:00 Ceron [facility] spital URINALYSIS SCREEN AND 2022-12-17 00:32:00 [facility] MICROSCOPY, WITH REFLEX TO CULTURE XR CHEST 1 VW PORTABLE 2022-12-16 21:49:49 [facility] ECG 12-LEAD 2022-12-16 20:25:18 [facility] BASIC METABOLIC PANEL 2022-12-16 10:10:00 Be Bush [facility] ESTIMATED GFR 2022-12-16 10:10:00 Be Bush [facility] URINE CULTURE 2022-12-15 13:26:00 [facility] URINALYSIS SCREEN AND 2022-12-15 12:53:00 Robbie, [facility] MICROSCOPY, WITH REFLEX TO CULTURE CBC WITH PLATELET AND 2022-12-15 09:16:00 [facility]FFER[facility] COMPREHENSIVE METABOLIC 2022-12-15 09:16:00 [facility] PANEL MAGNESIUM LEVEL 2022-12-15 09:16:00 Massimo Daigle [facility] spital PHOSPHORUS LEVEL 2022-12-15 09:16:00 Massimo Daigleist H ospital ESTIMATED GFR 2022-12-15 09:16:00 Massimo Daigle Ho spital US RENAL 2022-12-14 21:11:39 Olga Webb spital PROTEIN, URINE, RANDOM 2022-12-14 18:01:00 [facility] Arely CREATININE LEVEL, URINE, 2022-12-14 18:01:00 [facility] RANDOM Arely SODIUM LEVEL, URINE, 2022-12-14 18:01:00 [facility] RANDOM Arely COMPREHENSIVE METABOLIC 2022-12-14 08:11:00 [facility] PANEL PHOSPHORUS LEVEL 2022-12-14 08:11:00 Massimo Daigle H ospital MAGNESIUM LEVEL 2022-12-14 08:11:00 Olga Webb Ho spital CBC WITH PLATELET AND 2022-12-14 08:11:00 Olga Webb [facility] DIFFERENTIAL NT-PROBNP 2022-12-14 08:11:00 Olga Webb spital ESTIMATED GFR 2022-12-14 08:11:00 Massimo Daigle spital ESTIMATED GFR 2022-12-14 07:57:00 Olga Webb Ho spital ECG 12-LEAD 2022-12-13 20:30:56 Be Bush [facility] CBC WITH PLATELET AND 2022-12-13 09:59:00 [facility] DIFFERENTIAL PROTHROMBIN TIME WITH INR 2022-12-13 09:59:00 [facility] METABOLIC 2022-12-13 09:59:00 [facility] PANEL MAGNESIUM LEVEL 2022-12-13 09:59:00 [facility] PHOSPHORUS LEVEL 2022-12-13 09:59:00 [facility] ESTIMATED GFR 2022-12-13 09:59:00 [facility] TTE COMPLETE, WO 2022-12-12 15:30:00 Chau Mortensen [facility] CONTRAST, W DOPPLER ([id number]) TROPONIN T 2022-12-12 11:43:00 Ward Davila Ho spital URINE CULTURE 2022-12-12 10:08:00 [facility] spital URINALYSIS SCREEN AND 2022-12-12 09:45:00 [facility] MICROSCOPY, WITH REFLEX TO CULTURE THYROID STIMULATING 2022-12-12 09:45:00 [facility] HORMONE T4, FREE 2022-12-12 09:45:00 [facility] spital CT ABDOMEN PELVIS W 2022-12-12 09:24:17 [facility] CONTRAST CT ANGIOGRAM PE CHEST 2022-12-12 09:23:18 [facility] TROPONIN T 2022-12-12 08:41:00 [facility] ECG ED PRELIMINARY 2022-12-12 06:49:22 Ward Davila [facility] INTERPRETATION XR CHEST 1 VW PORTABLE 2022-12-12 06:11:58 Ward Davila [facility] CBC WITH PLATELET AND 2022-12-12 05:11:00 Ward Davila [facility] DIFFERENTIAL COMPREHENSIVE METABOLIC 2022-12-12 05:11:00 Ward Davila [facility] PANEL TROPONIN T 2022-12-12 05:11:00 Ward Davila [facility] spital NT-PROBNP 2022-12-12 05:11:00 Ward Davila spital ESTIMATED GFR 2022-12-12 05:11:00 [facility] ECG 12-LEAD 2022-12-12 04:44:01 [facility] US BREAST COMPLETE LEFT 2022-12-01 15:55:03 Magdy Mehta [facility] Perez MAMMO BREAST DIAGNOSTIC 2022-12-01 15:38:46 KimbleCarmenMagdy [facility] TOMOSYNTHESIS LEFT Perez MAMMO BREAST SCREEN 2022-10-27 17:10:54 KimbleMagdy weinberg [facility] TOMOSYNTHESIS BILATERAL Perez LIPID PANEL 2022-10-21 16:23:00 Kimble [facility] Perez THYROID STIMULATING 2022-10-21 16:23:00 [facility] HORMONE Perez HEMOGLOBIN A1C 2022-10-21 16:23:00 [facility] Perez VITAMIN D 25 HYDROXY 2022-10-21 16:23:00 [facility] LEVEL Perez VITAMIN B12 LEVEL 2022-10-21 16:23:00 [facility] Perez URINE CULTURE 2022-07-28 18:43:00 [facility] Perez URINALYSIS, AUTOMATED 2022-07-28 18:43:00 [facility] WITH MICROSCOPY Perez URINE CULTURE 2022-07-24 22:09:00 [facility] Perez TOTAL IRON BINDING 2022-07-24 16:32:00 [facility] CAPACITY Perez ESTIMATED GFR 2022-07-24 16:32:00 [facility] Perez CBC WITH PLATELET AND 2022-07-24 16:32:00 [facility] DIFFERENTIAL Perez THYROID STIMULATING 2022-07-24 16:32:00 [facility] HORMONE Perez VITAMIN D 25 HYDROXY 2022-07-24 16:32:00 [facility] LEVEL Perez FERRITIN LEVEL 2022-07-24 16:32:00 [facility] Perez TOTAL IRON BINDING 2022-07-24 16:32:00 [facility] CAPACITY Perez VITAMIN B12 LEVEL 2022-07-24 16:32:00 [facility] Perez COMPREHENSIVE METABOLIC 2022-07-24 16:32:00 [facility] PANEL Perez URINALYSIS SCREEN AND 2022-07-24 16:32:00 [facility] MICROSCOPY, WITH REFLEX Perez TO CULTURE XR HIPS 2 VW RIGHT 2022-07-14 16:11:47 Kendra Culp [facility] URINALYSIS 2022-07-14 15:50:00 Kendra Culp [facility] CONSENT/REFUSAL FOR 2022-07-14 14:39:15 [facility] CBC WITH PLATELET AND 2022-01-12 09:24:00 Bhora, [facility] DIFFERENTIAL BASIC METABOLIC PANEL 2022-01-12 09:23:00 ora, [facility] ESTIMATED GFR 2022-01-12 09:23:00 Bhora, [facility] TTE LIMITED, WO CONTRAST, 2022-01-11 13:18:00 Bhora, [facility] W DOPPLER ([id number]) CBC WITH PLATELET AND 2022-01-11 09:00:00 [facility], [facility] DIFFERENTIAL BASIC METABOLIC PANEL 2022-01-11 09:00:00 [facility], [facility] ESTIMATED GFR 2022-01-11 09:00:00 [facility], [facility] ZZCOVID-19 ANTI-SPIKE IGG 2022-01-11 02:02:00 [facility], [facility] ANTIBODY TITER TROPONIN T 2022-01-11 02:02:00 Sally Crespo [facility] Virant ZZCOVID-19 SEROLOGY 2022-01-11 02:02:00 [facility], [facility] PATIENT SURVEILLANCE TROPONIN T 2022-01-10 22:25:00 [facility] QUALITATIVE 2022-01-10 21:34:00 Rocael Blair [facility] RT-PCR XR CHEST 1 VW PORTABLE 2022-01-10 19:59:42 Sally Crespo [facility] TROPONIN T 2022-01-10 19:50:00 Sally Crespo [facility] B NATRIURETIC PEPTIDE 2022-01-10 19:50:00 Sally Crespo [facility] CBC WITH PLATELET AND 2022-01-10 19:50:00 Sally Crespo [facility] DIFFERENTIAL [facility] COMPREHENSIVE METABOLIC 2022-01-10 19:50:00 Sally Crespo [facility] PANEL Virant ESTIMATED GFR 2022-01-10 19:50:00 Sally Crespo [facility] Virant ECG ED PRELIMINARY 2022-01-10 19:42:17 Sally Crespo [facility] INTERPRETATION Virant ECG 12-LEAD 2022-01-10 19:36:23 Jazmin Crespohrwilliam March [facility] TTE COMPLETE, W CONTRAST, 2021-10-25 21:25:39 [facility] ([id number][facility] 12-LEAD 2021-10-25 [facility]:04[facility], 2021-10-21 16:53:00 [facility] COMPREHENSIVE (ILIANA Perez HIST) THYROID STIMULATING 2021-10-21 16:53:00 [facility] HORMONE Perez CBC WITH PLATELET AND 2021-10-21 16:53:00 [facility] DIFFERENTIAL Perez HEMOGLOBIN A1C 2021-10-21 16:53:00 [facility] Eprez COMPREHENSIVE METABOLIC 2021-10-21 16:53:00 [facility] PANEL Perez LIPID PANEL 2021-10-21 16:53:00 [facility] Perez TOTAL IRON BINDING 2021-10-21 16:53:00 [facility] CAPACITY Perez FERRITIN LEVEL 2021-10-21 16:53:00 [facility] Perez URINALYSIS, COMPLETE, 2021-10-21 16:53:00 [facility] WITH REFLEX TO CULTURE Perez MICROSCOPIC EXAMINATION 2021-10-21 16:53:00 [facility] Perez ASSIGNMENT OF BENEFITS 2021-07-24 20:38:13 Doctor Unassigned, [facility] CONSENT/REFUSAL FOR 2021-07-24 19:44:06 Doctor Unassigned, Unive [facility] DIAGNOSIS AND TREATMENT [facility] NOTICE OF PRIVACY 2021-07-24 19:43:45 Doctor Unassigned, [facility] PRACTICES [facility] CT HEAD WO CONTRAST 2021-07-07 22:42:29 Ray, [facility] XR HAND 3+ VW LEFT 2021-07-07 21:36:52 Ray, [facility] XR WRIST 3+ VW LEFT 2021-07-07 21:36:25 Ray, [facility] XR RIBS W PA CHEST LEFT 2021-07-07 21:36:03 Ray, [facility] THYROID STIMULATING 2021-04-22 20:17:00 [facility] HORMONE Perez THYROID STIMULATING 2021-02-20 19:19:00 [facility] HORMONE Perez HSV TYPES 1 & 2-SPECIFIC 2020-11-09 20:51:00 [facility] AB, IGG W/ RFLX TO HSV-2 Perez TESTING ECG 12-LEAD 2020-10-05 20:14:00 [facility] 2020-09-18 21:37:00 [facility] HORMONE Perez Plan of Care Planned Activity Planned Date Details Comments Source Future Scheduled 2023-05-05 SHINGLES VACCINES ([address] [facility] Test 20:33:38 of 2) [code = SHINGLES VACCINES (1 of 2)] Future Scheduled 2023-05-05 RSV VACCINES > [address] [facility] Test 20:33:38 (1 - 1-dose 60+ series) [code = RSV VACCINES > 60 YR (1 - 1-dose 60+ series)] Future Scheduled 2023-05-05 65+ PNEUMOCOCCAL [facility] Test 20:33:38 VACCINE (2 - PCV) [code = 65+ PNEUMOCOCCAL VACCINE (2 - PCV)] Future Scheduled 2023-05-05 COVID-19 VACCINE (3 - [facility] Test 20:33:38 season) [code = COVID-19 VACCINE (3 - season)] Future Scheduled 2023-05-05 INFLUENZA VACCINE (#[facility]) [facility] 20:33:38 [code = INFLUENZA VACCINE (#1)] Future Scheduled 2022-07-30 SHINGLES VACCINES (1 [facility] Test 23:43:30 of 2) [code = SHINGLES VACCINES (1 of 2)] Future Scheduled 2022-07-30 65+ PNEUMOCOCCAL [facility] Test 23:43:30 VACCINE (2 - PCV) [code = 65+ PNEUMOCOCCAL VACCINE (2 - PCV)] Future Scheduled 2022-07-30 COVID-19 VACCINE (2 - [facility] 23:43:30 Pfizer series) [code = COVID-19 VACCINE (2 - Pfizer series)] Future Scheduled 2022-07-30 INFLUENZA VACCINE [facility] Test 23:43:30 [code = INFLUENZA VACCINE] Future Scheduled 2022-07-30 SHINGLES VACCINES (1 [facility] Test 23:43:30 of 2) [code = SHINGLES VACCINES (1 of 2)] Future Scheduled 2022-07-30 65+ PNEUMOCOCCAL [facility] Test 23:43:30 VACCINE (2 - PCV) [code = 65+ PNEUMOCOCCAL VACCINE (2 - PCV)] Future Scheduled 2022-07-30 COVID-19 VACCINE (2 - [facility] Test 23:43:30 Pfizer series) [code = COVID-19 VACCINE (2 - Pfizer series)] Future Scheduled 2022-07-30 INFLUENZA VACCINE [facility] Test 23:43:30 [code = INFLUENZA VACCINE] Future Scheduled 2022-07-24 SHINGLES VACCINES (1 [facility] Test 10:32:26 of 2) [code = SHINGLES VACCINES (1 of 2)] Future Scheduled 2022-07-24 65+ PNEUMOCOCCAL [facility] Test 10:32:26 VACCINE (2 - PCV) [code = 65+ PNEUMOCOCCAL VACCINE (2 - PCV)] Future Scheduled 2022-07-24 COVID-19 VACCINE (2 - [facility] Test 10:32:26 Pfizer series) [code = COVID-19 VACCINE (2 - Pfizer series)] Future Scheduled 2022-07-24 INFLUENZA VACCINE [facility] Test 10:32:26 [code = INFLUENZA VACCINE] Future Scheduled 2022-07-23 SHINGLES VACCINES (1 [facility] Test 13:00:42 of 2) [code = SHINGLES VACCINES (1 of 2)] Future Scheduled 2022-07-23 65+ PNEUMOCOCCAL [facility] Test 13:00:42 VACCINE (2 - PCV) [code = 65+ PNEUMOCOCCAL VACCINE (2 - PCV)] Future Scheduled 2022-07-23 COVID-19 VACCINE (2 - [facility] Test 13:00:42 Pfizer series) [code = COVID-19 VACCINE (2 - Pfizer series)] Future Scheduled 2022-07-23 INFLUENZA VACCINE [facility] Test 13:00:42 [code = INFLUENZA VACCINE] Future Scheduled 2022-07-10 SHINGLES VACCINES (1 [facility] Test 10:49:29 of 2) [code = SHINGLES VACCINES (1 of 2)] Future Scheduled 2022-07-10 65+ PNEUMOCOCCAL [facility] Test 10:49:29 VACCINE (2 - PCV) [code = 65+ PNEUMOCOCCAL VACCINE (2 - PCV)] Future Scheduled 2022-07-10 COVID-19 VACCINE (2 - [facility] Test 10:49:29 Pfizer series) [code = COVID-19 VACCINE (2 - Pfizer series)] Future Scheduled 2022-07-10 INFLUENZA VACCINE [facility] Test 10:49:29 [code = INFLUENZA VACCINE] Future Scheduled 2021-07-15 COLONOSCOPY SCREENING [facility] Test 22:29:30 [code = COLONOSCOPY SCREENING] Future Scheduled 2021-07-15 SHINGLES VACCINES (#1) M [facility] Test 22:29:30 [code = SHINGLES VACCINES (#1)] Future Scheduled 2021-07-15 65+ PNEUMOCOCCAL [facility] Test 22:29:30 VACCINE (2 of 2 - PCV13) [code = 65+ PNEUMOCOCCAL VACCINE (2 of 2 - PCV13)] Future Scheduled 2021-07-15 COVID-19 VACCINE (2 - [facility] Test 22:29:30 Pfizer 3-dose series) [code = COVID-19 VACCINE (2 - Pfizer 3-dose series)] Future Scheduled 2021-07-15 INFLUENZA VACCINE [facility] Test 22:29:30 [code = INFLUENZA VACCINE] Future Scheduled 2021-07-15 COLONOSCOPY SCREENING [facility] Test 22:29:30 [code = COLONOSCOPY SCREENING] Future Scheduled 2021-07-15 SHINGLES VACCINES (#1) [facility] Test 22:29:30 [code = SHINGLES VACCINES (#1)] Future Scheduled 2021-07-15 65+ [facility] Test 22:29:30 VACCINE (2 of 2 - PCV13) [code = 65+ PNEUMOCOCCAL VACCINE (2 of 2 - PCV13)] Future Scheduled 2021-07-15 COVID-19 VACCINE (2 - Me [facility] Test 22:29:30 Pfizer 3-dose series) [code = COVID-19 VACCINE (2 - Pfizer 3-dose series)] Future Scheduled 2021-07-15 INFLUENZA VACCINE [facility] Test 22:29:30 [code = INFLUENZA VACCINE] Encounters Start End Encounter Admission Attending Care Care Encounter Source Date/Time Date/Time Type Type Clinicians Facility Department ID 2023-04-02 2023-04-02 Orders Sales, Melissa 1.2.840.1 [id number] Methodi 00:00:00 00:00:[address] 3.430.2.7 Hospit a .3.650752 l .8 2023-04-01 2023-04-01 Telephone Kimble, 1.2.840.1 [id number] 069 [id number] Methodi 00:00:00 00:00:[address] Perez 3.430.2.7 Hospi ta .3.796400 l .8 2023-03-20 2023-03-20 Office Perez, 1.2.840.1 [id number] 2100 [id number] Methodi 11:00:00 14:47:29 Visit Jonatan Bourgeois 04180.1.[address] 3.430.2.7 Hospit a .3.333148 l .8 2023-03-20 2023-03-20 Outpatient PEREZ, [facility] [id number] [place] 00:00:00 00:00:00 JONATAN [address] 2023-03-07 2023-03-07 Emergency X DICK LAUREANO ERT [id number] Univers 14:06:00 15:40:00 KATHARINE samano [facility] 2023-03-07 2023-03-07 Emergency DICK Laureano 1.2.840.114 10 [id number] [facility] 14:06:00 15:40:00 Katharine BALLARD 350.1.13.10 ity [place] [facility] 4.2.7.2.686 [facility] [id number] [facility] 084 Branch 2023-01-28 2023-01-28 Office Ana, 1.2.840.1 [id number] 2100 [id number] Methodi 08:20:00 11:36:20 Visit Jonatan Bourgeois 81715.1.[address] 3.430.2.7 Hospit a .3.422477 l .8 2023-01-28 2023-01-28 Outpatient PEREZ, [facility] [id number] 97549 Maple 00:00:00 00:00:00 JONATAN Moreno [facility] 2023-01-27 2023-01-27 Office Magdy Mehta Perez 1.2.840 .1 [id number] Methodi 13:45:00 14:47:37 Visit Sabrina Renteria 68408.1.[address] 3.430.2.7 Hospit a .3.416275 l .8 2023-01-27 2023-01-27 Outpatient TYSON, [facility] [id number] 6285 [place] 00:00:00 00:00:00 MAGDY [address] 2023-01-12 2023-01-12 Orders Tyson, 1.2.840.1 [id number] 78173 13618 Methodi 00:00:00 00:00:00 Only Magdy 80233.1.[address] Perez 3.430.2.7 Hospi ta .3.661074 l .8 2023-01-09 2023-01-09 Outpatient TYSON [facility] [id number] [place] 00:00:00 00:00:00 MAGDY [address] 2023-01-08 2023-01-08 Telephone Tyson, 1.2.840.1 [id number] 225 [id number] Methodi 00:00:00 00:00:[address] Perez 3.430.2.7 Hospi ta .3.879388 l .8 2023-01-07 2023-01-07 Orders Tyson, 1.2.840.1 [id number] 31329 08820 Methodi 00:00:00 00:00:00 Only Magdy 44815.1.[address] [place] 3.430.2.7 Hospi ta .3.256935 l .8 2023-01-07 2023-01-07 Telephone Tyson, 1.2.840.1 [id number] 229 [id number] Methodi 00:00:00 00:00:[address] Perez 3.430.2.7 Hospi ta .3.769188 l .8 2023-01-06 2023-01-06 Lab Kimble, 1.2.840.1 [id number] 20337 93557 Methodi 12:10:00 12:15:[address] Perez 3.430.2.7 Hospi ta .3.927691 l .8 2023-01-06 2023-01-06 Office Kimble, 1.2.840.1 [id number] 24722 05502 Methodi 09:45:00 11:23:15 Visit Magdy 21422.1.[address] Perez 3.430.2.7 Hospi ta .3.122011 l .8 2023-01-06 2023-01-06 Telephone Perez, 1.2.840.1 [id number] 21 [id number] Methodi 00:00:00 00:00:00 Jonatan Bourgeois 80336.1.[address] 3.430.2.7 Hospit a .3.137996 l .8 2023-01-06 2023-01-06 [facility] [id number] 8509 [place] 00:00:00 00:00:[address] MAGDY [address] 2023-01-06 2023-01-06 [facility] [id number] 9441 [place] 00:00:00 00:00:00 MAGDY [address] 2022-12-24 2022-12-24 Orders Sales, Melissa 1.2.840.1 [id number] 803 [id number] Methodi 00:00:00 00:00:[address] 3.430.2.7 Hospit a .3.575939 l .8 2022-12-24 2022-12-24 Telephone Kimble, 1.2.840.1 [id number] 348 [id number] Methodi 00:00:00 00:00:[address] Perez 3.430.2.7 Hospi ta .3.062917 l .8 2022-12-22 2022-12-22 Documentat Micheal, 1.2.840.1 [id number] Methodi 00:00:00 00:00:00 ion Liu 97197.1.[address] 3.430.2.7 Hospit a .3.056278 l .8 2022-12-11 2022-12-21 [facility] Ward Davila 1.2.840.1 [id number] 10 [id number] Methodi 23:58:00 17:28:00 Encounter Massimo Daigle 63641.1.[address] [place] 3.430.2.7 Hospita Siria Ceron .3.891538 l .8 2022-12-11 2022-12-21 Inpatient SIRIA CERNO [facility] 064 2100 [id number] Maple 00:00:00 00:00:[address] 2022-12-12 2022-12-12 Travel 1.2.840.1 1.2.656.428 7445 645590 Methodi 00:00:00 00:00:[address] 3.430.2.7 0.2.7.3.698 Ho spita .3.799730 084.8 l .8 2022-12-08 2022-12-08 Refill Kimble, 1.2.840.1 [id number] 64959 79634 Methodi 00:00:00 00:00:[address] Perez 3.430.2.7 Hospi ta .3.015386 l .8 2022-12-01 2022-12-01 [facility], 1.2.840.1 [id number] 2100 097598 Methodi 09:41:50 23:59:00 Encounter Magdy 99332.1.1 6[address] Perez 3.430.2.7 Hospi ta .3.542437 l .8 2022-12-01 2022-12-01 [facility], 1.2.840.1 [id number] Methodi 09:34:32 09:40:00 Encounter Magdy 92013.1.1 676 s t Perez 3.430.2.7 Hospi ta .3.104888 l .8 2022-12-01 2022-12-01 Travel 1.2.840.1 1.2.580.606 6043 660621 Methodi 00:00:00 00:00:[address] 3.430.2.7 0.2.7.3.698 Ho spita .3.960643 084.8 l .8 2022-12-01 2022-12-01 Outpatient [facility] [id number] [place] 00:00:00 00:00:00 MAGDY [address] 2022-12-01 2022-12-01 Outpatient [facility] [id number] 0406 [place] 00:00:00 00:00:00 MAGDY [address] 2022-11-25 2022-11-25 Telephone Perez, 1.2.840.1 [id number] 21 [id number] Methodi 00:00:00 00:00:00 Jonatan Bourgeois 59082.1.[address] 3.430.2.7 Hospit a .3.119271 l .8 2022-11-04 2022-11-04 Refill Perez, 1.2.840.1 [id number] 2099 588054 Methodi 00:00:00 00:00:00 Jonatan Bourgeois 26843.1.[address] 3.430.2.7 Hospit a .3.794413 l .8 2022-11-04 2022-11-04 Refill Perez, 1.2.840.1 [id number] 2099591 Methodi 00:00:00 00:00:00 Jonatan Bourgeois [address]502.1.[address] 3.430.2.7 Hospit a .3.489859 l .8 2022-10-31 2022-10-31 Travel 1.2.840.1 1.2.472.801 2593 371561 Methodi 00:00:00 00:00:[address] 3.430.2.7 0.2.7.3.698 Ho spita .3.578797 084.8 l .8 2022-10-31 2022-10-31 Refill Perez, 1.2.840.1 [id number] Methodi 00:00:00 00:00:00 Jonatan Bourgeois 30633.1.[address] 3.430.2.7 Hospit a .3.593812 l .8 2022-10-29 2022-10-29 Orders Tyson, 1.2.840.1 [id number] 32017 Methodi 00:00:00 00:00:00 Only Magdy 73790.1.[address] Perez 3.430.2.7 Hospi ta .3.143650 l .8 2022-10-27 2022-10-27 [facility] [id number] 0642 [place] 00:00:00 00:00:00 MAGDY [address] 2022-10-22 2022-10-22 Orders Tyson, 1.2.840.1 [id number] 24247 Methodi 00:00:00 00:00:00 Only Magdy 01038.1.[address] Perez 3.430.2.7 Hospi ta .3.220530 l .8 2022-10-21 2022-10-21 Lab Kimble, 1.2.840.1 [id number] 71847 Methodi 11:25:00 11:30:[address] Perez 3.430.2.7 Hospi ta .3.082885 l .8 2022-10-21 2022-10-21 Office Kimble, 1.2.840.1 [id number] 13931 37998 Methodi 10:30:00 11:13:22 Visit Magdy 48636.1.[address] Perez 3.430.2.7 Hospi ta .3.840702 l .8 2022-10-21 2022-10-21 Outpatient TYSON, [facility] [id number] 1376 [place] 00:00:00 00:00:00 AMGDY [address] 2022-10-21 2022-10-21 Outpatient TYSON, [facility] [id number] 3709 [place] 00:00:00 00:00:[address] MAGDY [address] 2022-10-16 2022-10-16 Orders Sales, Melissa 1.2.840.1 [id number] 763 [id number] Methodi 00:00:00 00:00:[address] 3.430.2.7 Hospit a .3.477650 l .8 2022-10-16 2022-10-16 Telephone Tyson, 1.2.840.1 [id number] 890 [id number] Methodi 00:00:00 00:00:[address] Perez 3.430.2.7 Hospi ta .3.355554 l .8 2022-07-29 2022-07-29 Telephone Perez, 1.2.840.1 [id number] Methodi 00:00:00 00:00:00 Fabián[address]32.1.[address] 3.430.2.7 Hospit a .3.608963 l .8 2022-07-29 2022-07-29 Telephone Perez, 1.2.840.1 [id number] Methodi 00:00:00 00:00:[address] Fab[address]án[address].1.[address] 3.430.2.7 Hospit a .3.801306 l .8 2022-07-28 2022-07-28 Lab Kimble, 1.2.840.1 [id number] 74724 Methodi 12:45:00 12:50:[address] Perez 3.430.2.7 Hospi ta .3.322204 l .8 2022-07-28 2022-07-28 Lab Kimble, 1.2.840.1 [id number] 52684 Methodi 12:45:00 12:50:[address] Perez 3.430.2.7 Hospi ta .3.382005 l .8 2022-07-25 2022-07-25 Orders Tyson, 1.2.840.1 [id number] Methodi 00:00:00 00:00:00 Only Magdy 54254.1.[address] Perez 3.430.2.7 Hospi ta .3.239498 l .8 2022-07-25 2022-07-25 Orders Tyson, 1.2.840.1 [id number] Methodi 00:00:00 00:00:00 Only Magdy 98420.1.[address] Perez 3.430.2.7 Hospi ta .3.440471 l .8 2022-07-24 2022-07-24 Lab Tyson, 1.2.840.1 [id number] Methodi 10:35:00 10:40:[address] Perez 3.430.2.7 Hospi ta .3.812263 l .8 2022-07-24 2022-07-24 Lab Tyson, 1.2.840.1 [id number] Methodi 10:35:00 10:40:[address] Perez 3.430.2.7 Hospi ta .3.437096 l .8 2022-07-24 2022-07-24 Office Tyson, 1.2.840.1 [id number] 03119 Methodi 09:45:00 10:28:53 Visit Magdy 43056.1.[address] Perez 3.430.2.7 Hospi ta .3.488089 l .8 2022-07-24 2022-07-24 Office Tyson, 1.2.840.1 [id number] 04091 Methodi 09:45:00 10:28:53 Visit Magdy 23797.1.[address] Perez 3.430.2.7 Hospi ta .3.126096 l .8 2022-07-14 2022-07-14 Emergency X [facility] ERT [id number] 9915 Univers 08:48:00 10:56:00 KENDRA samano [facility] 2022-07-14 2022-07-14 Emergency [facility] 1.2.840.114 99 [id number] [facility] 08:48:00 10:56:00 Kendra Hair [place] 350.1.13.10 ity [facility] 4.2.7.2.686 [facility] [id number] [address] 2022-03-28 2022-03-28 Orders Sales, Melissa 1.2.840.1 [id number] Methodi 00:00:00 00:00:[address] 3.430.2.7 Hospit a .3.343475 l .8 2022-03-28 2022-03-28 Telephone Tyson 1.2.840.1 [id number] 057 [id number] Methodi 00:00:00 00:00:[address] Perez 3.430.2.7 Hospi ta .3.799756 l .8 2022-02-03 2022-02-03 Orders Sales, Melissa 1.2.840.1 [id number] 495 [id number] Methodi 00:00:00 00:00:[address] 3.430.2.7 Hospit a .3.681091 l .8 2022-01-31 2022-01-31 Telephone Tyson, 1.2.840.1 [id number] 483 [id number] Methodi 00:00:00 00:00:[address] Perez 3.430.2.7 Hospi ta .3.435881 l .8 2022-01-13 2022-01-13 Patient Rodrigo, 1.2.840.1 [id number] 863 [id number] Methodi 00:00:00 00:00:00 Outreach Tory 99051.1.[address] 3.430.2.7 Hospit a .3.674313 l .8 2022-01-10 2022-01-12 Emergency RossyRocael 1.2.840.1 [id number] 2 [id number] Methodi 14:24:00 14:30:00 Bob Love 59935.1.[address] 3.430.2.7 Hospit a .3.339023 l .8 2022-01-06 2022-01-06 Telephone Kimble, 1.2.840.1 [id number] 367 [id number] Methodi 00:00:00 00:00:[address] Perez 3.430.2.7 Hospi ta .3.689109 l .8 2021-11-29 2021-11-29 Telephone Kimble, 1.2.840.1 [id number] 323 [id number] Methodi 00:00:00 00:00:[address] Perez 3.430.2.7 Hospi ta .3.881866 l .8 2021-11-29 2021-11-29 Telephone [place], 1.2.840.1 [id number] 2099 383773 Methodi 00:00:00 00:00:[address] 3.430.2.7 Hospit a .3.766070 l .8 2021-10-25 2021-10-25 Office Perez, 1.2.840.1 [id number] 2100 917666 Methodi 14:40:00 16:01:28 Visit Jonatan Bourgeois 98505.1.[address] 3.430.2.7 Hospit a .3.231053 l .8 2021-10-25 2021-10-25 Outpatient PEREZ, [facility] 48115 07374 [place] 00:00:00 00:00:00 JONATAN Dailey [facility] 2021-10-25 2021-10-25 Travel 1.2.840.1 1.2.280.249 6742 961843 Methodi 00:00:00 00:00:[address] 3.430.2.7 0.2.7.3.698 Ho spita .3.940673 084.8 l .8 2021-10-24 2021-10-24 Telephone Sales, Melissa 1.2.840.1 [id number] 2 [id number] Methodi 00:00:00 00:00:[address] 3.430.2.7 Hospit a .3.590573 l .8 2021-10-22 2021-10-22 Orders Kimble, 1.2.840.1 [id number] Methodi 00:00:00 00:00:00 Only Magdy 11761.1.[address] Perez 3.430.2.7 Hospi ta .3.109948 l .8 2021-10-21 2021-10-21 Lab Kimble, 1.2.840.1 [id number] Methodi 11:55:00 12:00:[address] Perez 3.430.2.7 Hospi ta .3.169392 l .8 2021-10-21 2021-10-21 Office Kimble, 1.2.840.1 [id number] Methodi 11:00:00 11:44:37 Visit Magdy 80755.1.[address] Perez 3.430.2.7 Hospi ta .3.534169 l .8 2021-10-21 2021-10-21 Travel 1.2.840.1 1.2.695.989 0361 739626 Methodi 00:00:00 00:00:[address] 3.430.2.7 0.2.7.3.698 Ho spita .3.783202 084.8 l .8 2021-10-12 2021-10-12 Refill Perez, 1.2.840.1 [id number] 2100 837454 Methodi 00:00:00 00:00:00 Fabián[address]20.1.[address] 3.430.2.7 Hospit a .3.632047 l .8 2021-10-11 2021-10-11 Telephone Kimble, 1.2.840.1 [id number] 249 [id number] Methodi 00:00:00 00:00:[address] Perez 3.430.2.7 Hospi ta .3.438313 l .8 2021-10-10 2021-10-10 Telephone Tyson, 1.2.840.1 [id number] 907 1517357 Methodi 00:00:00 00:00:[address] Perez 3.430.2.7 Hospi ta .3.390850 l .8 2021-09-15 2021-09-15 Refill Perez, 1.2.840.1 [id number] 2099 178280 Methodi 00:00:00 00:00:[address] Fabián[address]192.1.[address] 3.430.2.7 Hospit a .3.144257 l .8 2021-07-24 2021-07-24 Emergency Singer [facility] 1.2.318.667 5948 2495 Univers 13:50:00 15:57:00 Donnie BALLARD 350.1.13.10 i ty [facility] 4.2.7.2.686 [facility] [id number] [facility] 0[address] Branch 2021-07-24 2021-07-24 Emergency X SINGER [facility] ERT [id number] Univers 13:50:00 15:57:00 DONNIE samano [facility] 2021-07-07 2021-07-07 Emergency Rossy, 1.2.840.1 [id number] 2099 114297 Methodi 14:59:00 17:00:[address] 3.430.2.7 Hospit a .3.696528 l .8 2021-07-07 2021-07-07 Travel 1.2.840.1 1.2.469.366 0838 115231 Methodi 00:00:00 00:00:[address] 3.430.2.7 0.2.7.3.698 Ho spita .3.591217 084.8 l .8 2021-05-19 2021-05-19 Refill Tyson, 1.2.840.1 [id number] 86106 Methodi 00:00:00 00:00:[address] Perez 3.430.2.7 Hospi ta .3.525178 l .8 2021-04-23 2021-04-23 Orders Tyson, 1.2.840.1 [id number] Methodi 00:00:00 00:00:00 Only Magdy 64963.1.[address] Perez 3.430.2.7 Hospi ta .3.217641 l .8 2021-04-22 2021-04-22 Office Perez, 1.2.840.1 [id number] 2099 465463 Methodi 14:21:09 16:28:27 Visit Jonatan BenitoTerri 16653.1.[address] 3.430.2.7 Hospit a .3.481218 l .8 2021-04-22 2021-04-22 Lab Kimble, 1.2.840.1 [id number] 945 Methodi 15:17:19 15:22:[address] Perez 3.430.2.7 Hospi ta .3.915664 l .8 2021-04-22 2021-04-22 Travel 1.2.840.1 1.2.296.139 8310 777781 Methodi 00:00:00 00:00:[address] 3.430.2.7 0.2.7.3.698 Ho spita .3.537562 084.8 l .8 2021-04-22 2021-04-22 [facility], 1.2.840.1 [id number] 860 Methodi 00:00:00 00:00:[address] Perez 3.430.2.7 Hospi ta .3.995188 l .8 2021-02-21 2021-02-21 [facility], 1.2.840.1 [id number] Methodi 00:00:00 00:00:00 Only Magdy 30464.1.[address] Perez 3.430.2.7 Hospi ta .3.485542 l .8 2021-02-20 2021-02-20 Lab Kimble, 1.2.840.1 [id number] 15879 Methodi 14:19:29 14:24:[address] Perez 3.430.2.7 Hospi ta .3.051422 l .8 2021-02-20 2021-02-20 [facility], 1.2.840.1 [id number] 009 [id number] Methodi 00:00:00 00:00:[address] Perez 3.430.2.7 Hospi ta .3.463118 l .8 2021-02-19 2021-02-19 Refill Kimble, 1.2.840.1 [id number] 89385 Methodi 00:00:00 00:00:[address] Perez 3.430.2.7 Hospi ta .3.211704 l .8 2020-11-09 2020-11-09 [facility], 1.2.840.1 [id number] 75069 Methodi 15:50:54 15:55:[address] [place] 3.430.2.7 Hospi ta .3.461022 l .8 2020-11-09 2020-11-09 Office Tyson, 1.2.840.1 [id number] 37946 96886 Methodi 14:51:49 15:47:59 Visit Magdy 24656.1.[address] Perez 3.430.2.7 Hospi ta .3.342269 l .8 2020-11-09 2020-11-09 Travel 1.2.840.1 1.2.769.470 4002 141947 Methodi 00:00:00 00:00:[address] 3.430.2.7 0.2.7.3.698 Ho spita .3.592885 084.8 l .8 2020-10-23 2020-10-23 Travel 1.2.840.1 1.2.090.752 9511 950139 Methodi 00:00:00 00:00:[address] 3.430.2.7 0.2.7.3.698 Ho spita .3.248373 084.8 l .8 2020-10-05 2020-10-05 Office [facility], 1.2.840.1 [id number] 2099 248258 Methodi 15:04:31 16:41:14 Visit Jonatan Bourgeois 75111.1.[address] 3.430.2.7 Hospit a .3.106912 l .8 2020-10-05 2020-10-05 Travel 1.2.840.1 1.2.678.440 8515 239928 Methodi 00:00:00 00:00:[address] 3.430.2.7 0.2.7.3.698 Ho spita .3.168794 084.8 l .8 2020-10-01 2020-10-01 Telephone Kimble, 1.2.840.1 [id number] 851 [id number] Methodi 00:00:00 00:00:[address] [place] 3.430.2.7 Hospi ta .3.282699 l .8 2020-09-23 2020-09-23 Telephone Kimble, 1.2.840.1 [id number] 600 [id number] Methodi 00:00:00 00:00:[address] [place] 3.430.2.7 Hospi ta .3.813022 l .8 2020-09-19 2020-09-19 [facility] 1.2.840.1 [id number] 95620 79717 Methodi 00:00:00 00:00:00 Only Magdy 50567.1.[address] [place] 3.430.2.7 Hospi ta .3.171040 l .8 2020-09-18 2020-09-18 [facility], 1.2.840.1 [id number] 04271 08105 Methodi 15:37:49 15:42:[address] [place] 3.430.2.7 Hospi ta .3.636859 l .8 2020-09-14 2020-09-14 [facility], 1.2.840.1 [id number] 23518 36087 Methodi 00:00:00 00:00:[address] [place] 3.430.2.7 Hospi ta .3.755793 l .8 2020-08-22 2020-08-22 Orders Palasi, 1.2.840.1 [id number] 6974 Methodi 00:00:00 00:00:00 Only Cristina AtkinsonTerri 41778.1.[address] 3.430.2.7 Hospit a .3.048801 l .8 2020-08-22 2020-08-22 [facility], 1.2.840.1 [id number] 094 [id number] Methodi 00:00:00 00:00:[address] [place] 3.430.2.7 Hospi ta .3.002434 l .8 2020-08-20 2020-08-20 Infusion Kimble, 1.2.840.1 [id number] 2099 [id number] Methodi 09:04:47 15:14:[address] [place] 3.430.2.7 Hospi ta .3.737559 l .8 2020-08-20 2020-08-20 Telephone Kimble, 1.2.840.1 [id number] 827 [id number] Methodi 00:00:00 00:00:[address] [place] 3.430.2.7 Hospi ta .3.342126 l .8 2020-08-20 2020-08-20 Refill [facility] 1.2.840.1 [id number] 21 [id number] Methodi 00:00:00 00:00:00 Delmy goetz 93311.1.[address] 3.430.2.7 Hospit a .3.406853 l .8 2020-08-20 2020-08-20 Travel 1.2.840.1 1.2.279.427 4724 728637 Methodi 00:00:00 00:00:[address] 3.430.2.7 0.2.7.3.698 Ho spita .3.097455 084.8 l .8 2020-08-01 2020-08-01 Outpatient [facility] [id number] 900 [place] 00:00:00 00:00:[address] 2020-07-24 2020-07-24 [id number] 5945 [place] 00:00:00 00:00:00 MAGDY [address] 2020-06-27 2020-06-27 Outpatient TYSON, [facility] [id number] 1924 [place] 00:00:00 00:00:00 MAGDY [address] 2020-06-27 2020-06-27 Outpatient PEREZ, [facility] [id number] 04132 [place] 00:00:00 00:00:00 JONATAN 196 Method i 2020-06-19 2020-06-19 Outpatient TYSON [facility] [id number] 2345 [place] 00:00:00 00:00:00 MAGDY 560 Metho di 2020-06-19 2020-06-19 Outpatient TYSON [facility] [id number] 3784 [place] 00:00:00 00:00:00 MAGDY 039 Metho di 2020-06-08 2020-06-08 Outpatient DALE PUENTES [facility] 750 1 [facility] 09:48:00 11:45:00 2020-04-24 2020-04-24 Outpatient TYSON [facility] [id number] [place] 00:00:00 00:00:00 MAGDY 009 Metho di 2020-01-31 2020-01-31 Outpatient TYSON [facility] [id number] 1120 [place] 00:00:00 00:00:00 MAGDY 478 Metho di 2020-01-27 2020-01-27 Outpatient TYSON [facility] [id number] 3139 [place] 00:00:00 00:00:00 MAGDY 646 Metho di 2019-10-07 2019-10-07 Outpatient PEERZ, [facility] [id number] 76128 [place] 00:00:00 00:00:00 JONATAN 549 Method i 2019-10-07 2019-10-07 Outpatient PEREZ, [facility] 24400 77203 [place] 00:00:00 00:00:00 JONATAN 111 Method i 2019-06-20 2019-06-22 Outpatient [place] [facility] [id number] 7023 [facility] 06:11:03 17:33:00 NAVA samano [facility] Results Test Description Test Time Test Comments Results Result Comments Source Commode + 2 more items 2023-02-20 12:01:34 Test Item Value Reference Range Interpretation Comme nts SUPPLIER NAME (test code = Alicia 6415) SUPPLIER PHONE (test code = 6416) ORDER STATUS (test code = Delivery Successful 6417) DELIVERY NOTE (test code = 6419) REQUESTED DELIVEY DATE (test 12/21/2022 code = 6420) ITEM DESCRIPTION (test code = POC with Conserving Device / Qty: 1Conserving Device 6423) Pulse Dose Settin ACTUAL DELIVERY DATE (test 12/22/2022 code = 6422) [facility] 12 [id number] 11:05:02 Test Item Value Reference Range Interpretation Comments Ventricular rate (test 68 code = 253) Atrial rate (test code 68 = 255) MO interval (test code 180 = 266) QRSD interval (test 102 code = 260) QT interval (test code 444 = 264) QTC interval (test code 472 = 265) P axis 1 (test code = 53 267) QRS axis 1 (test code = 35 268) T wave axis (test code 53 = 270) EKG impression (test Normal sinus code = 273) rhythm-Normal ECG-In automated comparison with ECG of 18-DEC-2022 07:44,-No significant change was found- [facility] (w Contrast, Strain and 3D if needed)2022-12-12 20:09:22 Test Item Value Reference Interpretation Comments Range Ao Root Diameter 3.17 cm (test code = 4587369170) AoV Area, Vmax (test 2.51 cm2 >=1.5 code = 6029574386) AoV Area, VTI (test 2.58 cm2 code = 8300573671) AoV Mean PG (test 5.60 mmHg code = 2020206845) AoV Peak PG (test 11.73 mmHg code = 8051443740) AoV Vmax (test code 1.71 m/s = 0968281015) AoV VTI (test code = 0.26 m 3375675349) BSA Puri (test code 2.15 m2 = 0494607109) BSA (test code = 1.96 m2 0142271295) IVS,d (test code = 1.40 cm 0.6-1.19 A 5960377709) IVS/LVPW,2D (test 1.09 code = 4516590744) Left Atrium 3.57 cm Dimension Anterior (test code = 9138267052) LV,d (test code = 4.73 cm 5244344612) LV EF,2D (test code 60.79 % = 5573985318) LV,s (test code = 3.46 cm 5091513316) LVOT area (test code 3.46 cm2 = 8932174106) LVOT Diam,S (test 2.10 cm code = 3632723381) LVOT Vmax (test code 1.25 m/s = 3183177142) LVOT VTI (test code 0.19 m = 6304737360) LVPWD,d (test code = 1.29 cm 0.60-1.19 A 8205255097) PV Pk Grad (test 3.03 mmHg code = 8811036799) PV VMAX (test code = 0.87 m/s 8547303237) RVOT Vmax (test code 0.83 m/s = 7485293648) TR Vpeak (test code 2.16 m/s = 0818549454) MV E A ratio (test 0.86 code = 8561735065) TR pk grad (test 11.84 mmHg code = 3115530781) AoV area i VTI BSA 1.32 cm2/m2 >=0.85 Butler (test code = 9651355651) BMI (test code = 41.19 kg/m2 5757981425) LV mass (test code = 252.85 g 2410044840) E wave decelartion 184.36 See_Comment A [Automat ed time (test code = message] T he 4869113348) system which generated this result transmitted reference range : 200 msec. The reference range was not used to interpret this result as normal/abnormal . MV Peak A Isai (test 0.57 m/s code = 8590484917) MV valve area p 1/2 4.11 cm2 method (test code = 4039184299) MV Peak E Isai (test 0.49 m/s code = 1655140868) MV stenosis pressure 53.47 ms 1/2 time (test code = 5226284886) LVOT stroke volume 0.66 ml (test code = 2495934716) AV LVOT peak 6.21 mmHg gradient (test code = 3259534264) Ascending aorta 3.02 cm (test code = 6357732411) Ao Root Diameter 3.17 cm (test code = 9847617829) LV SYS VOL (test 49.53 ml 14-42 A code = 1500513464) LV LIGHT VOL (test 103.87 ml 46-106 code = 4689844368) LA area s A4C (test 27.34 cm2 code = 0370212791) LV SI Teich 2D (test 27.73 ml/m2 code = 5302118447) LV SV Teich 2D (test 54.33 ml code = 4729551091) LV Vol s Teich PSAX 49.53 ml (test code = 2318984647) LVOT SI (test code = 34.26 ml/m2 7308058350) RVOT pk grad (test 2.79 mmHg code = 0211947744) BSA Haycock (test 2.12 m2 code = 6929245148) AoV Vmn (test code = 1.11 m/s 2968857961) LV FS Teich 2D (test 26.81 code = 1031613671) MV AE ratio (test 1.17 code = 9329062602) LV FS Cube 2D (test 26.81 code = 3208681815) LVOT Vmn (test code 0.76 = 0686045877) Pt Size (test code = 154.94 6225288306) Pt Wt (test code = 98.88 1815101863) Aov area Vmn (test 2.37 cm2 code = 3469592294) LA A_P score P (test 1.03 code = 0648454627) LVOT mean grad (test 2.77 mmHg code = 6100016953) 85 of MPHR (test 120.84 code = 9789575396) AoV area I VMN bsa 1.21 cm2/m2 (test code = 6342461230) Calc MPHR (test code 142.16 bpm = 2261347760) LV SI Cube 2D (test 32.82 ml/m2 code = 9240747455) LV SV Cube 2D (test 64.31 ml code = 9877909350) LV vol d cube 2D 105.79 ml (test code = 8559852962) LV vol s cube 2D 41.48 ml (test code = 6689329351) MV Decel slope (test 2.65 m/s2 code = 3888361479) Pred Exer Dur R1 5.98 (test code = 3609564458) Pred METS R1 (test 4.58 code = 5930019583) LA Vol MOD A4C (test 88.39 ml code = 9763202900) Velocity Ratio 0.73 m/s (V1/V2) (test code = 4689) E/A ratio (test code 0.86 = 7293543247) LV Mass Index (test 129.01 g/m2 code = 4360543253) LVOT VTI (CM) (test 19.00 cm code = 7691842164) STACEY (test code = STACEY) Left Ventricle: Left ventricle size is normal. Mildly increased wall thickness. Mildly reduced systolic function with a visually estimated EF of 45 - 49%. Grade I (impaired relaxation) diastolic dysfunction. Left Atrium: Left atrium is mildly dilated. Mitral Valve: Mild to moderate valvular regurgitation. Left VentricleLeft ventricle size is normal. Mildly increased wall thickness. Mildly reduced systolic function with a visually estimated EF of 45 - 49%. Grade I (impaired relaxation) diastolic dysfunction.Right VentricleRight ventricle size is normal. Normal systolic function.Left AtriumLeft atrium is mildly dilated.Right AtriumRight atrium size is normal.Mitral ValveValve structure is normal. Mild to moderate valvular regurgitation.Tricus pid ValveValve structure is normal. Trace valvular regurgitation.Pulmon ic ValveValve structure is normal.PericardiumTh ere is no pericardial effusion present.Study DetailsStudy quality was adequate. A complete 2D, color flow Doppler and spectral Doppler echocardiogram was performed.The apical, parasternal, subcostal and suprasternal views were obtained. Technical difficulties due to patient's body habitus. Lab Interpretation Abnormal (test code = 67079-0) [facility] or Follow Up (w Contrast if needed)2022-01-11 14:55:44 Test Item Value Reference Range Interpretation Comments EF (test code = 49 % 54-74 A 2418234072) IVS,d (test code = 1.12 cm 0.6-0.9 A 0988967179) LVPWD,d (test code = 1.02 cm 0.60-1.19 1474522426) LV,s (test code = 3.95 cm 0183944472) LV LIGHT VOL (test code 133.41 ml 46-106 A = 7123526390) LV SYS VOL (test code = 67.89 ml 14-42 A 1765563688) LV,d (test code = 5.27 cm 0107141634) IVS/LVPW,2D (test code = 8811479550) LV EF,2D (test code = 57.86 % 5596429843) LV FS Cube 2D (test code = 8939257485) LV FS Teich 2D (test code = 8207398664) LV SV Teich 2D (test 65.52 ml code = 2222089056) LV Vol s Teich PSAX 67.89 ml (test code = 1446203056) Pred METS R1 (test code = 1546740809) Pred Exer Dur R1 (test code = 4426429017) LV vol s cube 2D (test 61.57 ml code = 2921964358) LV vol d cube 2D (test 146.12 ml code = 2500143126) LV SV Cube 2D (test 84.55 ml code = 5218797043) Calc MPHR (test code = bpm 0304996662) 85 of MPHR (test code = 5171125546) MAX Pred HR (test code = 5120535047) STACEY (test code = STACEY) Left Ventricle: Mild global hypokinesis present. Mildly reduced systolic function with a visually estimated EF of 45 - 49%. Left atrium size is moderately dilated. Mitral Valve: Mild to moderate valvular regurgitation. Left VentricleLeft ventricle size is normal. Normal wall thickness. Mild global hypokinesis present. Mildly reduced systolic function with a visually estimated EF of 45 - 49%.Right VentricleRight ventricle size is normal.Left AtriumLeft atrium is moderately dilated.Right AtriumRight atrium size is normal.Mitral ValveValve structure is normal. Mild to moderate valvular regurgitation.Tricuspi d ValveValve structure is normal. Trace valvular regurgitation.Aortic ValveValve structure appears tricuspid. No significant valvular regurgitation. No stenosis.Pulmonic ValveValve structure is normal.PericardiumTher e is no pericardial effusion present.Study DetailsStudy quality was fair. A limited 2D, color flow Doppler and spectral Doppler echocardiogram was performed.The apical, parasternal, subcostal and suprasternal views were obtained. Lab Interpretation Abnormal (test code = 71598-5) [facility] PkbaelmgRQEC-NqR-6 (COVID-19) RNA [Presence] in Respiratory specimen by STORMY with probe [id number] 00:42:37 Test Item Value Reference Range Interpretation Comments SARS-CoV-2 (COVID-19) RNA Not detected [Presence] in Respiratory specimen by STORMY with probe detection (test code = 84780-2) Whether patient is employed in a Unknown healthcare setting (test code = 72670-1) Whether the patient has symptoms Unknown related to condition of interest (test code = 37173-1) Whether the patient was Unknown hospitalized for condition of interest (test code = 01070-8) Whether the patient was admitted Unknown to intensive care unit (ICU) for condition of interest (test code = 53056-5) Whether patient resides in a Unknown congregate care setting (test code = 68412-9) status (test code = Unknown 79553-0) Date and time of symptom onset Unknown (test code = 57359-4) [address]2022-06-24 22:10:31 Test Item Value Reference Range Interpretation Comments Ventricular rate (test code = 253) Atrial rate (test code = 255) MO interval (test code = 266) QRSD interval (test code = 260) QT interval (test code = 264) QTC interval (test code = 265) P axis 1 (test code = 267) QRS axis 1 (test code = 268) T wave axis (test code = 270) EKG impression (test Normal sinus code = 273) rhythm-Normal ECG-In automated comparison with ECG of 25-OCT-2021 15:04,-No significant change was found- [address]2022-06-24 22:10:31 Test Item Value Reference Range Interpretation Comments Ventricular rate (test code = 253) Atrial rate (test code = 255) MO interval (test code = 266) QRSD interval (test code = 260) QT interval (test code = 264) QTC interval (test code = 265) P axis 1 (test code = 267) QRS axis 1 (test code = 268) T wave axis (test code = 270) EKG impression (test Normal sinus code = 273) rhythm-Normal ECG-In automated comparison with ECG of 25-OCT-2021 15:04,-No significant change was found- [address]2022-06-24 22:10:31 Test Item Value Reference Range Interpretation Comments Ventricular rate (test code = 253) Atrial rate (test code = 255) MO interval (test code = 266) QRSD interval (test code = 260) QT interval (test code = 264) QTC interval (test code = 265) P axis 1 (test code = 267) QRS axis 1 (test code = 268) T wave axis (test code = 270) EKG impression (test Normal sinus code = 273) rhythm-Normal ECG-In automated comparison with ECG of 25-Oct-2021:,-No significant change was found- [address]2022-06-24 22:10:31 Test Item Value Reference Range Interpretation Comments Ventricular rate (test code = 253) Atrial rate (test code = 255) MO interval (test code = 266) QRSD interval (test code = 260) QT interval (test code = 264) QTC interval (test code = 265) P axis 1 (test code = 267) QRS axis 1 (test code = 268) T wave axis (test code = 270) EKG impression (test Normal sinus code = 273) rhythm-Normal ECG-In automated comparison with ECG of 25-Oct-2021,-No significant change was found- [address]2022-06-24 22:10:31 Test Item Value Reference Range Interpretation Comments Ventricular rate (test code = 253) Atrial rate (test code = 255) MO interval (test code = 266) QRSD interval (test code = 260) QT interval (test code = 264) QTC interval (test code = 265) P axis 1 (test code = 267) QRS axis 1 (test code = 268) T wave axis (test code = 270) EKG impression (test Normal sinus code = 273) rhythm-Normal ECG-In automated comparison with ECG of 25-Oct-2021,-No significant change was found- [facility] [id number] 17:09:00 Test Item Value Reference Range Interpretation Comments WBC, UA (test code = >30 See_Comment A [Autom ated 5821-4) message] The system which generated this result transmitted reference range : 0 - 5 /hpf. The reference range was not used to interpret this result as normal/abnormal . RBC, UA (test code = None seen See_Comment [Autom ated 14764-3) message] The system which generated this result transmitted reference range : 0 - 2 /hpf. The reference range was not used to interpret this result as normal/abnormal . Epithelial cells (non 0-10 See_Comment [Auto mated renal) (test code = message] The 5787-7) system which generated this result transmitted reference range : 0 - 10 /hpf. Th e reference range was not used to interpret this result as normal/abnormal . Casts (test code = None seen None seen /lpf 79995-1) Bacteria, UA (test Many None seen/Few A code = 5769-5) STACEY (test code = STACEY) Performed at: [address] [place] [address] [id number] Director: Portillo Dominguez MD, Phone: [phone] Lab Interpretation Abnormal (test code = 20941-4) [facility] WITH REFLEX TO [id number] 17:09:00 Test Item Value Reference Range Interpretation Comments Specific gravity, 1.005-1.030 urine (test code = 5811-5) pH, urine (test code 5.0-7.5 = 5803-2) Color, UA (test code Yellow Yellow = 5778-6) Appearance (test code Cloudy Clear A = 5767-9) WBC esterase, urine 3+ Negative A (test code = 5799-2) Protein, UA (test Trace Negative/Trace code = 68346-3) Glucose, urine (test Negative Negative code = 27862-2) Ketones, UA (test Negative Negative code = 9864-8) Occult blood, urine Negative Negative (test code = 5794-3) Bilirubin, UA (test Negative Negative code = 5770-3) Urobilinogen, UA 0.2 mg/dL 0.2-1.0 (test code = 57413-1) Nitrite, UA (test Positive Negative A code = 5802-4) Microscopic See below: Microscopic was examination (test indicated and was code = 36226-9) performed. Urinalysis reflex Comment This speci men has (test code = 2386) reflexed to a Urine Culture. STACEY (test code = STACEY) Performed at: [address] [place] [address] [id number] Director: Portillo Dominguez MD, Phone: [phone] Lab Interpretation Abnormal (test code = 98007-0) [facility] [id number] 17:09:00 Test Item Value Reference Range Interpretation Comments WBC, UA (test code = >30 See_Comment A [Autom ated 5821-4) message] The system which generated this result transmitted reference range : 0 - 5 /hpf. The reference range was not used to interpret this result as normal/abnormal . RBC, UA (test code = None seen See_Comment [Autom ated 99573-7) message] The system which generated this result transmitted reference range : 0 - 2 /hpf. The reference range was not used to interpret this result as normal/abnormal . Epithelial cells (non 0-10 See_Comment [Auto mated renal) (test code = message] The 5787-7) system which generated this result transmitted reference range : 0 - 10 /hpf. Th e reference range was not used to interpret this result as normal/abnormal . Casts (test code = None seen None seen /lpf 44515-8) Bacteria, UA (test Many None seen/Few A code = 5769-5) STACEY (test code = STACEY) Performed at: [address] [place] [address] [id number] Director: Portillo Dominguez MD, Phone: [phone] Lab Interpretation Abnormal (test code = 06604-5) [facility] WITH REFLEX TO [id number] 17:09:00 Test Item Value Reference Range Interpretation Comments Specific gravity, 1.005-1.030 urine (test code = 5811-5) pH, urine (test code 5.0-7.5 = 5803-2) Color, UA (test code Yellow Yellow = 5778-6) Appearance (test code Cloudy Clear A = 5767-9) WBC esterase, urine 3+ Negative A (test code = 5799-2) Protein, UA (test Trace Negative/Trace code = 79921-2) Glucose, urine (test Negative Negative code = 11552-3) Ketones, UA (test Negative Negative code = 2514-8) Occult blood, urine Negative Negative (test code = 5794-3) Bilirubin, UA (test Negative Negative code = 5770-3) Urobilinogen, UA 0.2 mg/dL 0.2-1.0 (test code = 70296-1) Nitrite, UA (test Positive Negative A code = 5802-4) Microscopic See below: Microscopic was examination (test indicated and was code = 71669-9) performed. Urinalysis reflex Comment This speci men has (test code = 2386) reflexed to a Urine Culture. STACEY (test code = STACEY) Performed at: [facility] [id number] Director: Portillo Dominguez MD, Phone: [phone] Lab Interpretation Abnormal (test code = 88915-9) [facility] [id number] 17:09:00 Test Item Value Reference Range Interpretation Comments WBC, UA (test code = >30 See_Comment A [Autom ated 5821-4) message] The system which generated this result transmitted reference range : 0 - 5 /hpf. The reference range was not used to interpret this result as normal/abnormal . RBC, UA (test code = None seen See_Comment [Autom ated 57587-9) message] The system which generated this result transmitted reference range : 0 - 2 /hpf. The reference range was not used to interpret this result as normal/abnormal . Epithelial cells (non 0-10 See_Comment [Auto mated renal) (test code = message] The 5787-7) system which generated this result transmitted reference range : 0 - 10 /hpf. Th e reference range was not used to interpret this result as normal/abnormal . Casts (test code = None seen None seen /lpf 63882-2) Bacteria, UA (test Many None seen/Few A code = 5769-5) STACEY (test code = STACEY) Performed at: [facility] [id number] Director: Portillo Dominguez MD, Phone: [phone] Lab Interpretation Abnormal (test code = 62821-2) [facility] WITH REFLEX TO [id number] 17:09:00 Test Item Value Reference Range Interpretation Comments Specific gravity, 1.005-1.030 urine (test code = 5811-5) pH, urine (test code 5.0-7.5 = 5803-2) Color, UA (test code Yellow Yellow = 5778-6) Appearance (test code Cloudy Clear A = 5767-9) WBC esterase, urine 3+ Negative A (test code = 5799-2) Protein, UA (test Trace Negative/Trace code = 36093-2) Glucose, urine (test Negative Negative code = 78058-5) Ketones, UA (test Negative Negative code = 2514-8) Occult blood, urine Negative Negative (test code = 5794-3) Bilirubin, UA (test Negative Negative code = 5770-3) Urobilinogen, UA 0.2 mg/dL 0.2-1.0 (test code = 54400-6) Nitrite, UA (test Positive Negative A code = 5802-4) Microscopic See below: Microscopic was examination (test indicated and was code = 48106-2) performed. Urinalysis reflex Comment This speci men has (test code = 2386) reflexed to a Urine Culture. STACEY (test code = STACEY) Performed at: [address] [place] [address] [id number] Director: Portillo Dominguez MD, Phone: [phone] Lab Interpretation Abnormal (test code = 08250-6) [facility] [id number] 17:09:00 Test Item Value Reference Range Interpretation Comments WBC, UA (test code = >30 See_Comment A [Autom ated 5821-4) message] The system which generated this result transmitted reference range : 0 - 5 /hpf. The reference range was not used to interpret this result as normal/abnormal . RBC, UA (test code = None seen See_Comment [Autom ated 58897-1) message] The system which generated this result transmitted reference range : 0 - 2 /hpf. The reference range was not used to interpret this result as normal/abnormal . Epithelial cells (non 0-10 See_Comment [Auto mated renal) (test code = message] The 5787-7) system which generated this result transmitted reference range : 0 - 10 /hpf. Th e reference range was not used to interpret this result as normal/abnormal . Casts (test code = None seen None seen /lpf 54806-9) Bacteria, UA (test Many None seen/Few A code = 5769-5) STACEY (test code = STACEY) Performed at: [address] [place] [address] [id number] Director: Portillo Dominguez MD, Phone: [phone] Lab Interpretation Abnormal (test code = 13700-3) [facility] WITH REFLEX TO [id number] 17:09:00 Test Item Value Reference Range Interpretation Comments Specific gravity, 1.005-1.030 urine (test code = 5811-5) pH, urine (test code 5.0-7.5 = 5803-2) Color, UA (test code Yellow Yellow = 5778-6) Appearance (test code Cloudy Clear A = 5767-9) WBC esterase, urine 3+ Negative A (test code = 5799-2) Protein, UA (test Trace Negative/Trace code = 16014-5) Glucose, urine (test Negative Negative code = 43768-4) Ketones, UA (test Negative Negative code = 2514-8) Occult blood, urine Negative Negative (test code = 5794-3) Bilirubin, UA (test Negative Negative code = 5770-3) Urobilinogen, UA 0.2 mg/dL 0.2-1.0 (test code = 44348-0) Nitrite, UA (test Positive Negative A code = 5802-4) Microscopic See below: Microscopic was examination (test indicated and was code = 61135-7) performed. Urinalysis reflex Comment This speci men has (test code = 2386) reflexed to a Urine Culture. STACEY (test code = STACEY) Performed at: [address] [place] [address] [id number] Director: Portillo Dominguez MD, Phone: [phone] Lab Interpretation Abnormal (test code = 46010-6) [facility] [id number] 17:09:00 Test Item Value Reference Range Interpretation Comments WBC, UA (test code = >30 See_Comment A [Autom ated 5821-4) message] The system which generated this result transmitted reference range : 0 - 5 /hpf. The reference range was not used to interpret this result as normal/abnormal . RBC, UA (test code = None seen See_Comment [Autom ated 83358-7) message] The system which generated this result transmitted reference range : 0 - 2 /hpf. The reference range was not used to interpret this result as normal/abnormal . Epithelial cells (non 0-10 See_Comment [Auto mated renal) (test code = message] The 5787-7) system which generated this result transmitted reference range : 0 - 10 /hpf. Th e reference range was not used to interpret this result as normal/abnormal . Casts (test code = None seen None seen /lpf 25551-2) Bacteria, UA (test Many None seen/Few A code = 5769-5) STACEY (test code = STACEY) Performed at: [facility] [id number] Director: Portillo Dominguez MD, Phone: [phone] Lab Interpretation Abnormal (test code = 12919-1) [facility] WITH REFLEX TO [id number] 17:09:00 Test Item Value Reference Range Interpretation Comments Specific gravity, 1.005-1.030 urine (test code = 5811-5) pH, urine (test code 5.0-7.5 = 5803-2) Color, UA (test code Yellow Yellow = 5778-6) Appearance (test code Cloudy Clear A = 5767-9) WBC esterase, urine 3+ Negative A (test code = 5799-2) Protein, UA (test Trace Negative/Trace code = 12192-4) Glucose, urine (test Negative Negative code = 54411-6) Ketones, UA (test Negative Negative code = 2514-8) Occult blood, urine Negative Negative (test code = 5794-3) Bilirubin, UA (test Negative Negative code = 5770-3) Urobilinogen, UA 0.2 mg/dL 0.2-1.0 (test code = 23762-6) Nitrite, UA (test Positive Negative A code = 5802-4) Microscopic See below: Microscopic was examination (test indicated and was code = 13162-2) performed. Urinalysis reflex Comment This speci men has (test code = 2386) reflexed to a Urine Culture. STACEY (test code = STACEY) Performed at: [address] [id number] Director: Portillo Dominguez MD, Phone: [phone] Lab Interpretation Abnormal (test code = 81297-3) [facility] [id number] 13:12:00 Test Item Value Reference Range Interpretation Comments Cholesterol (test 110 mg/dL 100-199 code = 2093-3) Triglycerides (test 76 mg/dL 0-149 code = 2571-8) HDL cholesterol 58 mg/dL See_Comment [Automated (test code = 2085-9) message ] The system which generated this result transmitted reference range : >=39. The reference range was not used to interpret this result as normal/abnormal . VLDL cholesterol aminta 16 mg/dL 5-40 (test code = 12937-3) LDL Chol Calc ([facility]) 36 mg/dL 0-99 (test code = 94499-2) Non-HDL cholesterol 52 mg/dL 0-129 (test code = 68421-2) STACEY (test code = Performed at: [facility]) - [address] [id number] Director: Portillo Dominguez MD, Phone: [phone] [facility] HospitalFerritin [id number] 13:12:00 Test Item Value Reference Range Interpretation Comments Ferritin level (test 58 ng/mL 15-150 code = 2276-4) STACEY (test code = STACEY) Performed at: [address] [place] [address] [id number] Director: Portillo Dominguez MD, Phone: [phone] [facility] [facility] [id number] 13:12:00 Test Item Value Reference Range Interpretation Comments Hemoglobin A1C 5.5 % 4.8-5.6 Prediabetes: (test code = 5.7 - 6.4 4548-4) Diabetes: >6.4 Glycemic contro l for adults with diabetes: <7.0 STACEY (test code = Performed at: [facility]) [address] [id number] Director: Portillo Dominguez MD, Phone: [phone] [facility] HospitalThyroid stimulating [id number] 13:12:00 Test Item Value Reference Range Interpretation Comments TSH (test code See_Comment [Automated m essage] = 42308-3) The system Vayusa generated this result transmit rajan reference range : 0.450 - 4.500 uIU/mL. The reference range was not used to interpret this result as normal/abnormal . STACEY (test code Performed at: - = STACEY) [address] [id number] Director: Portillo Dominguez MD, Phone: [phone] [facility] HospitalTotal iron binding [id number] 13:12:00 Test Item Value Reference Range Interpretation Comments Iron binding capacity 314 ug/dL 250-450 (test code = 2500-7) Unsaturated iron 260 ug/dL 118-369 binding capacity (test code = 2501-5) Iron level (test code = 54 ug/dL 27-139 2498-4) Iron saturation (test 17 % 15-55 code = 2502-3) STACEY (test code = STACEY) Performed at: - [address] [id number] Director: Portillo Dominguez MD, Phone: [phone] [facility] HospitalLipid [id number] 13:12:00 Test Item Value Reference Range Interpretation Comments Cholesterol (test 110 mg/dL 100-199 code = 2093-3) Triglycerides (test 76 mg/dL 0-149 code = 2571-8) HDL cholesterol 58 mg/dL See_Comment [Automated (test code = 2085-9) message ] The system which generated this result transmitted reference range : >=39. The reference range was not used to interpret this result as normal/abnormal . VLDL cholesterol aminta 16 mg/dL 5-40 (test code = 77382-3) LDL Chol Calc ([facility]) 36 mg/dL 0-99 (test code = 81665-7) Non-HDL cholesterol 52 mg/dL 0-129 (test code = 94321-2) STACEY (test code = Performed at: STACEY) - [address] [id number] Director: Portillo Dominguez MD, Phone: [phone] [facility] HospitalFerritin [id number] 13:12:00 Test Item Value Reference Range Interpretation Comments Ferritin level (test 58 ng/mL 15-150 code = 2276-4) STACEY (test code = STACEY) Performed at: [address] [id number] Director: Portillo Dominguez MD, Phone: [phone] [facility] HospitalHemoglobin [id number] 13:12:00 Test Item Value Reference Range Interpretation Comments Hemoglobin A1C 5.5 % 4.8-5.6 Prediabetes: (test code = 5.7 - 6.4 4548-4) Diabetes: >6.4 Glycemic contro l for adults with diabetes: <7.0 STACEY (test code = Performed at: STACEY) [address] [id number] Director: Portillo Dominguez MD, Phone: [phone] [facility] HospitalThyroid stimulating [id number] 13:12:00 Test Item Value Reference Range Interpretation Comments TSH (test code See_Comment [Automated m essage] = 37009-0) The system Vayusa generated this result transmit rajan reference range : 0.450 - 4.500 uIU/mL. The reference range was not used to interpret this result as normal/abnormal . STACEY (test code Performed at: - = STACEY) [address] [id number] Director: Portillo Dominguez MD, Phone: [phone] [facility] HospitalTotal iron binding [id number] 13:12:00 Test Item Value Reference Range Interpretation Comments Iron binding capacity 314 ug/dL 250-450 (test code = 2500-7) Unsaturated iron 260 ug/dL 118-369 binding capacity (test code = 2501-5) Iron level (test code = 54 ug/dL 27-139 2498-4) Iron saturation (test 17 % 15-55 code = 2502-3) STACEY (test code = STACEY) Performed at: [address] [id number] Director: Portillo Dominguez MD, Phone: [phone] [facility] HospitalLipid [id number] 13:12:00 Test Item Value Reference Range Interpretation Comments Cholesterol (test 110 mg/dL 100-199 code = 2093-3) Triglycerides (test 76 mg/dL 0-149 code = 2571-8) HDL cholesterol 58 mg/dL See_Comment [Automated (test code = 2085-9) message ] The system which generated this result transmitted reference range : >=39. The reference range was not used to interpret this result as normal/abnormal . VLDL cholesterol aminta 16 mg/dL 5-40 (test code = 87052-7) LDL Chol Calc ([facility]) 36 mg/dL 0-99 (test code = 56586-4) Non-HDL cholesterol 52 mg/dL 0-129 (test code = 32380-8) STACEY (test code = Performed at: [facility]) - Lab[address] [id number] Director: Portillo Dominguez MD, Phone: [phone] [facility] HospitalFerritin [id number] 13:12:00 Test Item Value Reference Range Interpretation Comments Ferritin level (test 58 ng/mL 15-150 code = 2276-4) STACEY (test code = STACEY) Performed at: - [address] [id number] Director: Portillo Dominguez MD, Phone: [phone] [facility] HospitalHemoglobin [id number] 13:12:00 Test Item Value Reference Range Interpretation Comments Hemoglobin A1C 5.5 % 4.8-5.6 Prediabetes: (test code = 5.7 - 6.4 4548-4) Diabetes: >6.4 Glycemic contro l for adults with diabetes: <7.0 STACEY (test code = Performed at: - [facility]) [address] [id number] Director: Portillo Dominguez MD, Phone: [phone] [facility] HospitalThyroid stimulating [id number] 13:12:00 Test Item Value Reference Range Interpretation Comments TSH (test code See_Comment [Automated m essage] = 47660-8) The system Vayusa generated this result transmit rajan reference range : 0.450 - 4.500 uIU/mL. The reference range was not used to interpret this result as normal/abnormal . STACEY (test code Performed at: - = STACEY) [address] [id number] Director: Portillo Dominguez MD, Phone: [phone] [facility] [id number] 13:12:00 Test Item Value Reference Range Interpretation Comments Iron binding capacity 314 ug/dL 250-450 (test code = 2500-7) Unsaturated iron 260 ug/dL 118-369 binding capacity (test code = 2501-5) Iron level (test code = 54 ug/dL 27-139 2498-4) Iron saturation (test 17 % 15-55 code = 2502-3) STACEY (test code = STACEY) Performed at: [address] [id number] Director: Portillo Dominguez MD, Phone: [phone] [facility] HospitalLipid [id number] 13:12:00 Test Item Value Reference Range Interpretation Comments Cholesterol (test 110 mg/dL 100-199 code = 2093-3) Triglycerides (test 76 mg/dL 0-149 code = 2571-8) HDL cholesterol 58 mg/dL See_Comment [Automated (test code = 2085-9) message ] The system which generated this result transmitted reference range : >=39. The reference range was not used to interpret this result as normal/abnormal . VLDL cholesterol aminta 16 mg/dL 5-40 (test code = 10733-8) LDL Chol Calc ([facility]) 36 mg/dL 0-99 (test code = 54215-7) Non-HDL cholesterol 52 mg/dL 0-129 (test code = 08507-2) STACEY (test code = Performed at: STACEY) - [address] [id number] Director: Portillo Dominguez MD, Phone: [phone] [facility] HospitalHemoglobin [id number] 13:12:00 Test Item Value Reference Range Interpretation Comments Hemoglobin A1C 5.5 % 4.8-5.6 Prediabetes: (test code = 5.7 - 6.4 4548-4) Diabetes: >6.4 Glycemic contro l for adults with diabetes: <7.0 STACEY (test code = Performed at: 01 - STACEY) [address] [id number] Director: Portillo Dominguez MD, Phone: [phone] [facility] HospitalLipid [id number] 13:12:00 Test Item Value Reference Range Interpretation Comments Cholesterol (test 110 mg/dL 100-199 code = 2093-3) Triglycerides (test 76 mg/dL 0-149 code = 2571-8) HDL cholesterol 58 mg/dL See_Comment [Automated (test code = 2085-9) message ] The system which generated this result transmitted reference range : >=39. The reference range was not used to interpret this result as normal/abnormal . VLDL cholesterol aminta 16 mg/dL 5-40 (test code = 98912-9) LDL Chol Calc ([facility]) 36 mg/dL 0-99 (test code = 05919-0) Non-HDL cholesterol 52 mg/dL 0-129 (test code = 47774-5) STACEY (test code = Performed at: STACEY) - [address] [id number] Director: Portillo Dominguez MD, Phone: [phone] [facility] HospitalHemoglobin [id number] 13:12:00 Test Item Value Reference Range Interpretation Comments Hemoglobin A1C 5.5 % 4.8-5.6 Prediabetes: (test code = 5.7 - 6.4 4548-4) Diabetes: >6.4 Glycemic contro l for adults with diabetes: <7.0 STACEY (test code = Performed at: - STACEY) [address] [id number] Director: Portillo Dominguez MD, Phone: [phone] [facility] HospitalThyroid stimulating [id number] 10:10:00 Test Item Value Reference Range Interpretation Comments TSH (test code See_Comment [Automated m essage] = 02493-2) The system [employer] generated this result transmit rajan reference range : 0.450 - 4.500 uIU/mL. The reference range was not used to interpret this result as normal/abnormal . STACEY (test code Performed at: 01 - = STACEY) [address] [id number] Director: Portillo Dominguez MD, Phone: [phone] [facility] [id number] 10:10:00 Test Item Value Reference Range Interpretation Comments TSH (test code See_Comment [Automated m essage] = 07605-9) The system Vayusa generated this result transmit rajan reference range : 0.450 - 4.500 uIU/mL. The reference range was not used to interpret this result as normal/abnormal . STACEY (test code Performed at: - = STACEY) [place] [address] [place], [place] [id number] Director: Portillo Dominguez MD, Phone: [phone] [facility] HospitalHerpes Simplex Virus (HSV) Types 1 and 2-Specific Antibodies, IgG With Reflex to Supplemental HSV-2 [id number] 19:08:00 Test Item Value Reference Range Interpretation Comments HSV 1 IgG (test code See_Comment H Negati ve <0.91 = 5206-8) Equivocal 0.91 - 1.09 Positive >1.09 Note: Negative indicates no antibodies detected to HSV-1. Equivoca l may suggest ear ly infection. If clinically appropriate, retest at later date. Positive indicates antibodies detected to HSV-1. [Automat ed message] The system which generated this result transmitted reference range : 0.00 - 0.90 index. The reference range was not used to interpret this result as normal/abnormal . HSV 2 IgG (test code <0.91 See_Comment Negati ve <0.91 = 5209-2) Equivocal 0.91 - 1.09 Positive >1.09 Note: Negative indicates no antibodies detected to HSV-2. Equivoca l may suggest ear ly infection. If clinically appropriate, retest at later date. Positive indicates antibodies detected to HSV-2. [Automat ed message] The system which generated this result transmitted reference range : 0.00 - 0.90 index. The reference range was not used to interpret this result as normal/abnormal . STACEY (test code = STACEY) Performed at: [address] [id number] Director: Reji Maier MD, Phone: [phone] Lab Interpretation Abnormal (test code = 42124-9) [facility] HospitalHerpes Simplex Virus (HSV) Types 1 and 2-Specific Antibodies, IgG With Reflex to Supplemental HSV-2 [id number] 19:08:00 Test Item Value Reference Range Interpretation Comments HSV 1 IgG (test code See_Comment H Negati ve <0.91 = 5206-8) Equivocal 0.91 - 1.09 Positive >1.09 Note: Negative indicates no antibodies detected to HSV-1. Equivoca l may suggest ear ly infection. If clinically appropriate, retest at later date. Positive indicates antibodies detected to HSV-1. [Automat ed message] The system which generated this result transmitted reference range : 0.00 - 0.90 index. The reference range was not used to interpret this result as normal/abnormal . HSV 2 IgG (test code <0.91 See_Comment Negati ve <0.91 = 5209-2) Equivocal 0.91 - 1.09 Positive >1.09 Note: Negative indicates no antibodies detected to HSV-2. Equivoca l may suggest ear ly infection. If clinically appropriate, retest at later date. Positive indicates antibodies detected to HSV-2. [Automat ed message] The system which generated this result transmitted reference range : 0.00 - 0.90 index. The reference range was not used to interpret this result as normal/abnormal . STACEY (test code = STACEY) Performed at: [address] [place] [id number] Director: Reji Maier MD, Phone: [phone] Lab Interpretation Abnormal (test code = 26931-6) [address]2021-03-20 04:50:14 Test Item Value Reference Range Interpretation Comments Ventricular rate (test code = 253) Atrial rate (test code = 255) MO interval (test code = 266) QRSD interval (test code = 260) QT interval (test code = 264) QTC interval (test code = 265) P axis 1 (test code = 267) QRS axis 1 (test code = 268) T wave axis (test code = 270) EKG impression (test Normal sinus code = 273) rhythm-Normal ECG- [place] [address] [id number] 04:50:14 Test Item Value Reference Range Interpretation Comments Ventricular rate (test code = 253) Atrial rate (test code = 255) MO interval (test code = 266) QRSD interval (test code = 260) QT interval (test code = 264) QTC interval (test code = 265) P axis 1 (test code = 267) QRS axis 1 (test code = 268) T wave axis (test code = 270) EKG impression (test Normal sinus code = 273) rhythm-Normal [facility]- [facility] ([facility]OVID-[facility] RNA [Presence] in Respiratory specimen by STORMY with probe [id number] 23:58:55 Test Item Value Reference Range Interpretation Comments SARS-CoV-2 (COVID-19) RNA Not detected Not-Detected [Presence] in Respiratory specimen by STORMY with probe detection (test code = 56681-7) [facility]
[2023-05-05] MEDS ORDERED: NA CHLORIDE 0.9% 2,000 ML ONE (21:08)
[2023-05-05 21:17] LABS: Lymphocytes % 8.5 % (15.3-44.8); MCV 89.1 fL (80-100); MPV 11.3 fL (7.6-11.3); Platelets 159 thou/uL (152-406); RBC Red Blood Cell Count 3.36 M/uL (3.86-4.86)
[2023-05-05 21:24] LABS: Troponin High Sensitivity 20.6 pg/mL (<58.9)
[2023-05-05 21:36] LABS: Specific Gravity 1.018 (1.005-1.030); Urine Bacteria None Seen /HPF (<20); Urine Bilirubin NEGATIVE (Negative); Urine Blood Negative (Negative); Urine Clarity Extremely Turbid (Clear); Urine Color Yellow (Yellow); Urine Crystals Unidentified Few /HPF (None Seen); Urine Glucose NEGATIVE (Negative); Urine Mucus Slight /HPF (None Seen); Urine Protein 1+ (Negative); Urine RBC <5 /HPF (None Seen); Urine Urobilinogen Normal (Normal)
--- NOTE | 2023-05-05 21:48 | ER ---
Nurse's Notes [facility] Name: Leena Vilchis Age: 78 yrs Sex: Female : 1945 Arrival Date: 05/05/2023 Time: 20:30 Bed 4 Private MD: Diagnosis: Influenza due to identified novel influenza A virus Presentation: 05/05 20:33 Chief complaint: EMS states: GEN WEAKNESS AND BACK PAIN AFTER NAP. Coronavirus screen: bp At this time, the client does not indicate any symptoms associated with coronavirus-19. Ebola Screen: No symptoms or risks identified at this time. Initial Sepsis Screen: Does the patient meet any 2 criteria? No. Patient's initial sepsis screen is negative. Does the patient have a suspected source of infection? No. Patient's initial sepsis screen is negative. Risk Assessment: Do you want to hurt yourself or someone else? Patient reports no desire to harm self or others. Onset of symptoms was May 05, 2023 at 12:00. Care prior to arrival: IV initiated. 20 GA, in the left forearm. 20:33 Method Of Arrival: EMS: [facility] bp 20:33 Acuity: MARIS 3 bp Triage Assessment: 20:35 General: Appears in no apparent distress. obese, Behavior is cooperative, appropriate bp for age, drowsy. Pain: Complains of pain in back. EENT: No deficits noted. Neuro: Level of Consciousness is alert, obeys commands, lethargic, Oriented to Appropriate for age. Cardiovascular: Rhythm is sinus rhythm. Respiratory: No deficits noted. GI: No signs and/or symptoms were reported involving the gastrointestinal system. : No signs and/or symptoms were reported regarding the genitourinary system. Derm: No deficits noted. Musculoskeletal: Circulation, motion, and sensation intact. Historical: - PMHx: 20:35 Chronic obstructive lung disease; bp - Immunization history:: Adult Immunizations up to date. - Social history:: Smoking status: Patient denies any tobacco usage or history of. Screenin:[facility] ED Fall Risk Assessment (Adult) History of falling in the last 3 months, bp including since admission No falls in past 3 months (0 pts). Abuse screen: Denies threats or abuse. Denies injuries from another. Nutritional screening: No deficits noted. Tuberculosis screening: No symptoms or risk factors identified. Assessment: 20:36 General: SEE TRIAGE NOTE. bp 22:30 Reassessment: ADMIT INITIATED. Neuro: Level of Consciousness is alert, obeys commands, bp lethargic, Oriented to Appropriate for age. 05/06 00:00 Reassessment: ADMIT COMPLETE, REPORT TO OLIIVA SCOTT. bp Vital Signs: 05/05 20:33 BP 104 / 67; Pulse 80; Resp 15; Temp 98; Pulse Ox 98% on 2 lpm NC; bp 22:30 BP 104 / 58; Pulse 79; Resp 16; Pulse Ox 100% ; bp 23:58 BP 105 / 67; Pulse 86; Resp 20; Pulse Ox 98% ; bp ED Course: 20:33 Patient arrived in ED. bp 20:34 Kelvin Tidwell MD is Attending Physician. ec2 20:35 Triage completed. bp 20:35 Arm band placed on. bp 20:36 Patient has correct armband on for positive identification. Bed in low position. Call bp light in reach. Side rails up X2. 20:36 Maintain EMS IV. Dressing intact. Good blood return noted. Site clean \T\ dry. Gauge \T\ bp site: 20 GA LEFT FA. 20:37 Tanner Orona, SONIA is Primary Nurse. bp 20:58 Urinalysis w/ reflexes Sent. la4 21:40 XRAY Chest (1 view) In Process Unspecified. EDMS 21:48 Antolin Rachel MD is Hospitalizing Provider. ec2 05/06 00:00 No provider procedures requiring assistance completed. Patient admitted, IV remains in bp place. Administered Medications: 05/05 20:57 Drug: NS 0.9% IV 1000 ml IV at 1 bolus Per protocol; 1000 mL bolus Route: IV; Rate: 1 rv bolus; Site: left forearm; 21:43 Drug: Oseltamivir PO 75 mg PO once Route: PO; bp 21:43 Follow up: Response: No adverse reaction bp 22:24 Drug: NS 0.9% IV 1000 ml IV at 1 bolus Per protocol; 1000 mL bolus Route: IV; Rate: 1 rv bolus; Site: left antecubital; Outcome: 21:48 Decision to Hospitalize by Provider. ec2 23:58 Admitted to Tele accompanied by tech, family with patient, via stretcher, room 231, bp with oxygen, with chart, Report called to OLIVIA SCOTT 23:58 Condition: stable 23:58 Instructed on the need for admit, 05/06 00:19 Patient left the ED. rv Signatures: Dispatcher [employer] Tanner Zamora, RN RN Gabino Hanna RN RN rv Kelvin Tidwell MD MD ec2 Rashawn Calvert RN RN la4
--- NOTE | 2023-05-05 21:48 | EDPHYS ---
Physician Documentation [facility] Name: Leena Vilchis Age: 78 yrs Sex: Female : 1945 Arrival Date: 05/05/2023 Time: 20:30 Bed 4 Private MD: ED Physician Kelvin Tidwell HPI: 05/05 20:41 This 78 yrs old Female presents to ER via EMS with complaints of General ec2 Weakness, Back Pain. 20:41 Patient arrives today due to concern for generalized weakness. History gathered from ec2 EMS due to patient's altered mental status. Family grew concerned that she had a urinary tract infection as the patient is been more altered and more drowsy than typical. No cough and cold symptoms, no nausea or vomiting, no diarrhea. Patient also reports chronic back pain.. Historical: - PMHx: 20:35 Chronic obstructive lung disease; bp - Immunization history:: Adult Immunizations up to date. - Social history:: Smoking status: Patient denies any tobacco usage or history of. ROS: 20:41 Constitutional: drowsy ec2 Exam: 20:41 Constitutional: GEN: NAD HEENT: -Head: atraumatic -Eyes: EOMI -Ears: External ears ec2 are normal. CV: regular rate LUNGS: no respiratory distress ABD: non-distended, soft, nontender, no guarding, not rigid SKIN: no evidence of rashes MSK: no evidence of trauma, neuro generally drowsy individual. Vital Signs: 20:33 BP 104 / 67; Pulse 80; Resp 15; Temp 98; Pulse Ox 98% on 2 lpm NC; bp 22:30 BP 104 / 58; Pulse 79; Resp 16; Pulse Ox 100% ; bp 23:58 BP 105 / 67; Pulse 86; Resp 20; Pulse Ox 98% ; bp MDM: 20:34 Patient medically screened. ec2 20:41 Data reviewed: vital signs. ED course: Patient arrives today due to concern for ec2 increased drowsiness. Examination remarkable for nontoxic dividual who is in no acute distress with reassuring vital signs to did have hypoxia noted on examination requiring supplemental oxygen. Will obtain lab work, EKG, chest x-ray as well as COVID swab and urinary studies. Patient crystalloid at this time. Currently consider p.o. such as upper respiratory tract infection, pneumonia, urinary tract infection, electrolyte disturbances, dehydration.. 20:41 ED course: In regards to the patient's back pain, she has listed enough to tell us that ec2 she has chronic back pain and this is not a concern to her. Additionally no evidence of trauma on external examination.. 20:47 ED course: EKG independently reviewed and interpreted by me, shows normal sinus rhythm, ec2 rate of 85, no acute ST segment elevations, concern intervals.. 21:35 ED course: Patient was flu positive. Will give the patient Tamiflu given her ec2 comorbidities.. 21:43 ED course: Chest x-ray dependently reviewed and interpreted by me, shows cardiomegaly, ec2 vascular congestion, left-sided pleural effusion. Ultimately patient with multiple comorbidities as well as underlying pulmonary pathology and is at risk for further decompensation given her comorbidities. I will admit the patient for continued management of her influenza A. I discussed case with hospitalist, pending admission.. 05/05 20:41 Order name: Basic Metabolic Panel; Complete Time: 21:35 ec2 05/05 20:41 Order name: CBC with Diff; Complete Time: 21:35 ec2 05/05 20:41 Order name: NT PRO-BNP; Complete Time: 21:35 ec2 05/05 20:41 Order name: Troponin HS; Complete Time: 21:35 ec2 05/05 20:41 Order name: Urinalysis w/ reflexes; Complete Time: 21:39 ec2 05/05 20:50 Order name: Flu; Complete Time: 21:35 bp 05/05 20:50 Order name: COVID-19 SARS RT PCR; Complete Time: 21:35 bp 05/05 20:51 Order name: Glucose, Ancillary Testing; Complete Time: 21:35 EDMS 05/05 23:17 Order name: ABG rv 05/05 23:52 Order name: ABG Arterial Blood Gas EDMS 05/05 20:41 Order name: XRAY Chest (1 view) ec2 05/05 20:41 Order name: EKG; Complete Time: 20:43 ec2 05/05 20:41 Order name: Cardiac monitoring; Complete Time: 20:43 ec2 05/05 20:41 Order name: EKG - Nurse/Tech; Complete Time: 20:52 ec2 05/05 20:41 Order name: IV Saline Lock; Complete Time: 20:43 ec2 05/05 20:41 Order name: Labs collected and sent; Complete Time: 20:52 ec2 05/05 20:41 Order name: O2 Per Protocol; Complete Time: 20:43 ec2 05/05 20:41 Order name: O2 Sat Monitoring; Complete Time: 20:43 ec2 Administered Medications: 20:57 Drug: NS 0.9% IV 1000 ml IV at 1 bolus Per protocol; 1000 mL bolus Route: IV; Rate: 1 rv bolus; Site: left forearm; 21:43 Drug: Oseltamivir PO 75 mg PO once Route: PO; bp 21:43 Follow up: Response: No adverse reaction bp 22:24 Drug: NS 0.9% IV 1000 ml IV at 1 bolus Per protocol; 1000 mL bolus Route: IV; Rate: 1 rv bolus; Site: left antecubital; Disposition Summary: 05/05/23 21:48 Hospitalization Ordered Notes: Hospitalization Status: Inpatient Admission ec2 Provider: Antolin Rachel ec2 [facility] Condition: Stable ec2 Problem: new ec2 Symptoms: have improved ec2 Bed/Room Type: Standard ec2 Room Assignment: 231(05/05/23 22:54) cg Diagnosis - Influenza due to identified novel influenza A virus ec2 Forms: - Medication Reconciliation Form ec2 - SBAR form ec2 - Leadership Thank You Letter ec2 Signatures: Dispatcher [employer] Madeleine Soria RN RN cg Peltier, Brian RN Gabino Jarrett RN Kelvin Cardoza MD MD ec2 Corrections: (The following items were deleted from the chart) 21:39 20:42 COVID-19/FLU A+B+MOL.LAB.BRZ ordered. [facility] EDNY 22:54 21:48 ec2 cg
[2023-05-05] MEDS ORDERED: OSELTAMIVIR 75 MG CAP PO ONE (21:54)
--- NOTE | 2023-05-05 21:57 | RAD REPORT ---
EXAM DESCRIPTION: Steve Single View05/05/2023 9:39 pm CLINICAL HISTORY: SOB COMPARISON: No comparisons TECHNIQUE: Portable AP view of the chest. FINDINGS: Central congestive changes with interstitial prominence and exaggerated bronchovascular ma rkings. Blunting of the left costophrenic angle may represent combination of atelectasis and epicardi al fat prominence. Mild cardiomegaly. No pneumothorax. The mediastinal contours are unremarkable. IMPRESSION: Central congestion/CHF. Left costophrenic angle blunting may represent combination of at electasis and epicardial fat prominence. Underlying pneumonia would be difficult to exclude.
--- NOTE | 2023-05-05 22:27 | P.HP ---
Certification for Inpatient Patient admitted to: Inpatient With expected LOS: <2 Midnights Patient will require the following post-hospital care: None Practitioner: I am a practitioner with admitting privileges, knowledge of patient current condition, hospital course, and medical plan of care. Services: Services provided to patient in accordance with Admission requirements found in Title 42 Section 412.3 of the Code of Federal Regulations Patient History Date of Service: 05/06/23 Reason for admission: Weakness History of Present Illness: 78-year-old female with a past medical history of ED, presents to the emergency room via EMS with weakness and back pain. Reports back pain is chronic. Family is at bedside reports patient has been more confused, reports recent urinary tract infection, no reported fever, chills, nausea vomiting diarrhea. ER evaluation Signs: BP 104 / 67; Pulse 80; Resp 15; Temp 98; Pulse Ox 98% on 2 lpm NC; patient is positive for influenza type a, plan to admit for acute hypoxic respiratory failure secondary to COPD exacerbation, influenza a virus. Laboratory evaluation leukocytosis 12.0, early left shift 80.50, acute renal failure BUN 59 creatinine 3.62, estimated GFR is 12, UA negative flu a positive, troponin normal at 20.6, BUN 3682 chest x-ray IMPRESSION: Central congestion/CHF. Left costophrenic angle blunting may represent combination of atelectasis and epicardial fat prominence. Underlying pneumonia would be difficult to exclude Allergies No Known Allergies Allergy (Unverified 05/05/23 23:56) - Past Medical/Surgical History Diabetic: No -: COPD -: Lupus -: CHF -: Rheumatoid arthritis -: Eye surgery -: Bladder surgery - Social History Smoking Status: Never smoker Alcohol use: No CD- Drugs: No Caffeine use: No Place of Residence: Home Review of Systems 10-point ROS is otherwise unremarkable Physical Examination - Physical Exam General: Alert, In no apparent distress, Other (Lethargic) HEENT: Atraumatic, Normocephalic, PERRLA Neck: Supple, 2+ carotid pulse no bruit Respiratory: Normal air movement, Diminished Cardiovascular: No edema, Normal pulses, Regular rate/rhythm Capillary refill: <2 Seconds Gastrointestinal: Normal bowel sounds, Soft and benign Musculoskeletal: No clubbing, No swelling Integumentary: No rashes, No breakdown Neurological: Other (Lethargic, responds to verbal) - Studies Laboratory Data (last 24 hrs) 05/05/23 05/05/23 20:53 20:53 WBC 12.00 H Hgb 9.3 L Hct 30.0 L Plt Count 159 Sodium 141 Potassium 5.0 BUN 59 H Creatinine 3.62 H Glucose 137 H Microbiology Data (last 24 hrs): 05/05/23 20:53 Nasopharnyx Influenza Type A Antigen Screen - Final 05/05/23 20:53 Nasopharnyx Influenza Type B Antigen Screen - Final Assessment and Plan - Plan Assessment plan Acute hypoxic respiratory failure secondary to influenza type a versus COPD exacerbation COPD exacerbation Influenza type a Acute on chronic heart failure Pulmonary consult BP 104 / 67; Pulse 80; Resp 15; Temp 98; Pulse Ox 98% on 2 lpm NC CO2 was elevated 98 placed on BiPAP leukocytosis 12.0, early left shift 80.50, azithromycin, ceftriaxone troponin normal at 20.6, BUN 3682 chest x-ray IMPRESSION: Central congestion/CHF. Left costophrenic angle blunting may represent combination of atelectasis and epicardial fat prominence. Underlying pneumonia would be difficult to exclude Trend BMP, troponin, WBCs Acute renal failure Nephrology consult acute renal failure BUN 59 creatinine 3.62, estimated GFR is 12, UA negative Trend kidney function, gentle IV fluids Lupus, Arthritis History of urinary tract Resume appropriate home meds Full code Diet n.p.o. until more alert DVT prophylaxis Discharge Plan: Home Plan to discharge in: 48 Hours - Advance Directives Does patient have a Living Will: No Does patient have a Durable POA for Healthcare: No - Code Status/Comfort Care Code Status: Full Code Physician Review: Patient Assessed, Agree with Above Assessment and Plan Critical Care: No Time Spent Managing Pts Care (In Minutes): 50
[2023-05-05 23:30] LABS: Arterial Blood Carboxyhemoglob 0.7 % (0-1.5); Blood O2 Saturation 90.8 % (92-98.5)
[2023-05-05] MEDS ORDERED: ALBUTEROL 2.5 MG/3 ML NEB SOL NEB PRN (23:56)
[2023-05-05] MEDS ORDERED: NA CHLORIDE 0.9% 1,000 ML IV SCH (23:56)
[2023-05-05] MEDS: AZITHROMYCIN IV 500 MG in NA CHLORIDE 0.9% 250 ML IVPB SCH (23:56)
[2023-05-05] MEDS ORDERED: ACETAMINOPHEN 500 MG TAB PO PRN (23:56)
[2023-05-05] MEDS ORDERED: ALPRAZOLAM 0.25 MG TABLET PO PRN (23:56)
[2023-05-06] MEDS: CEFTRIAXONE 1,000 MG in NA CHLORIDE 0.9% 50 ML IVPB SCH ×2 (00:35→21:26)
[2023-05-06] MEDS: HEPARIN 5000 UNIT/ML 1 ML VIAL SQ SCH ×3 (00:36→16:53)
[2023-05-06] MEDS: METHYLPREDNISOLONE 40 MG INJ IV SCH ×4 (00:36→16:53)
[2023-05-06 00:41] VITALS: BMI 42.2
[2023-05-06] MEDS: ONDANSETRON 4 MG/2 ML VIAL IV PRN (00:58)
[2023-05-06] MEDS: IPRATROPIUM BROM 0.5MG/2.5ML NEB SCH ×4 (02:00→20:45)
[2023-05-06 03:46] LABS: Absolute Lymphocytes (CBC) 1.1 K/uL (0.7-4.9); Hematocrit 27.9 % (36.0-45.0); Lymphocytes % 10.9 % (15.3-44.8); MCV 89.7 fL (80-100); Platelets 145 thou/uL (152-406); RBC Red Blood Cell Count 3.11 M/uL (3.86-4.86)
[2023-05-06 03:47] LABS: Magnesium 2.4 mg/dL (1.6-2.4); Potassium 4.9 mEq/L (3.5-5.1); Troponin High Sensitivity 19.7 pg/mL (<58.9)
[2023-05-06] MEDS ORDERED: RSI MEDICATION KIT IV ONE (06:47)
[2023-05-06] MEDS: propofoL 1,000 MG/100 ML VIAL IV SCH ×2 (07:00→18:45)
[2023-05-06] MEDS ORDERED: propofoL 1,000 MG/100 ML VIAL IV SCH (07:00)
[2023-05-06] MEDS ORDERED: propofoL 1,000 MG/100 ML VIAL IV ONE (07:12)
[2023-05-06 07:30] LABS: Arterial Blood Carboxyhemoglob 0.7 % (0-1.5); Blood Gas Oxyhemoglobin 88.9 % (94-97); Blood O2 Saturation 91.3 % (92-98.5)
[2023-05-06] MEDS ORDERED: NA CHLORIDE 0.9% 250 ML IV PRN (07:40)
[2023-05-06] MEDS ORDERED: MIDAZOLAM HCL 2 MG/2 ML INJ IV PRN (07:40)
[2023-05-06] MEDS ORDERED: HALOPERIDOL LACT 5 MG/ML INJ IV PRN (07:40)
--- NOTE | 2023-05-06 07:49 | RAD REPORT ---
EXAM DESCRIPTION: RAD - Chest Single View - 05/06/2023 7:26 am CLINICAL HISTORY: ETT placement Chest pain. COMPARISON: Chest Single View dated 05/05/2023 FINDINGS: Portable technique limits examination quality. Tip of the endotracheal tube is at the level of the superior aortic arch. Moderate bilateral pulmonar y opacities are present, unchanged. The heart is significantly enlarged.Enteric tube descends in the stomach.
[2023-05-06] MEDS: LORazepam 2 MG/ML VIAL IV PRN ×2 (07:58→21:23)
[2023-05-06] MEDS ORDERED: INFLUENZA VACCINE (for 6+ mo) 0.5 ML DOSE IMVAC ONE (08:00)
[2023-05-06] MEDS ORDERED: PNEUMOCOCCAL VACCINE 0.5 ML IMVAC ONE (08:00)
--- NOTE | 2023-05-06 08:25 | P.CNS ---
Date of Consult: 05/06/23 Reason for Consult: Respiratory failure patient on ventilator Chief Complaint: Weakness History of Present Illness: Patient is 78 years of age transferred from the floor with hypoxic hypercapnic respiratory failure currently intubated on propofol He was admitted with generalized weakness and back pain altered mental status family concerned about a urinary tract infection tested positive for flu Allergies No Known Allergies Allergy (Unverified 05/05/23 23:56) Home Medications: Atorvastatin Calcium [Lipitor] 40 mg PO BEDTIME 05/06/23 Enoxaparin Sodium [Lovenox 40 MG INJ*] 40 mg SQ DAILY 05/06/23 Furosemide [Lasix 40 MG INJ*] 40 mg IV DAILY 05/06/23 Hydroxychloroquine [Plaquenil*] 200 mg PO BID 05/06/23 Levothyroxine Sodium [Synthroid] 150 mcg PO DAILY 05/06/23 Quetiapine [Seroquel*] 25 mg PO BEDTIME 05/06/23 carvediloL [Carvedilol] 25 mg PO BID 05/06/23 predniSONE [Prednisone] 5 mg PO DAILY 05/06/23 - Past Medical/Surgical History Diabetic: No -: COPD -: Lupus -: CHF -: Rheumatoid arthritis -: Eye surgery -: Bladder surgery - Social History Alcohol use: No CD- Drugs: No Caffeine use: No Place of Residence: Home Review of Systems is unable to be obtained Physical Examination Temp Pulse Resp BP Pulse Ox 98 F 90 20 126/57 L 100 05/05/23 20:33 05/06/23 06:33 05/05/23 23:58 05/06/23 06:33 05/06/23 06:45 General: Unresponsive Respiratory: Clear to auscultation bilaterally, Diminished Cardiovascular: No edema, Normal pulses, Normal S1 S2 Gastrointestinal: Normal bowel sounds, Soft and benign Musculoskeletal: No clubbing, No swelling Laboratory Data (last 24 hrs) 05/05/23 05/05/23 20:53 20:53 WBC 12.00 H Hgb 9.3 L Hct 30.0 L Plt Count 159 Sodium 141 Potassium 5.0 BUN 59 H Creatinine 3.62 H Glucose 137 H - Problems (1) Respiratory failure Current Visit: Yes Status: Acute Plan: Patient is 78 years of age admitted with altered mental status back pain she has hypoxic hypercapnic respiratory failure patient is currently intubated titrate sat to 90s percent recheck ABGs White count is mildly elevated suspect she may have been chronic renal failure chest x-ray shows cardiomegaly some interstitial changes have an element of volume overload she has a history of COPD Qualifiers: Chronicity: unspecified
[2023-05-06] MEDS ORDERED: ALBUTEROL 2.5 MG/3 ML NEB SOL NEB PRN ×2 (08:31→14:00)
[2023-05-06] MEDS: FAMOTIDINE 20 MG/2 ML VIAL IV SCH (08:46)
--- NOTE | 2023-05-06 08:47 | P.CNS ---
Date of Consult: 05/06/23 Reason for Consult: FILI/ CKD Requesting Physician: cristy dykes Chief Complaint: Weakness History of Present Illness: 78-year-old female with a past medical history of ED, presents to the emergency room via EMS with weakness and back pain. Reports back pain is chronic. Family is at bedside reports patient has been more confused, reports recent urinary tract infection, no reported fever, chills, nausea vomiting diarrhea. ER evaluation Signs: BP 104 / 67; Pulse 80; Resp 15; Temp 98; Pulse Ox 98% on 2 lpm NC; patient is positive for influenza type a, plan to admit for acute hypoxic respiratory failure secondary to COPD exacerbation, influenza a virus. Laboratory evaluation leukocytosis 12.0, early left shift 80.50, acute renal failure BUN 59 creatinine 3.62, estimated GFR is 12, UA negative flu a positive, troponin normal at 20.6, BUN 3682 chest x-ray IMPRESSION: Central congestion/CHF. Left costophrenic angle blunting may represent combination of atelectasis and epicardial fat prominence. Underlying pneumonia would be difficult to exclude. [id number] 20:41 This 78 yrs old Female presents to ER via EMS with complaints of General ec2 Weakness, Back Pain. 20:41 Patient arrives today due to concern for generalized weakness. History gathered from [facility] EMS due to patient's altered mental status. Family grew concerned that she had a urinary tract infection as the patient is been more altered and more drowsy than typical. No cough and cold symptoms, no nausea or vomiting, no diarrhea. Patient also reports chronic back pain.. Limited HPI/ ROS due to intubation. Case reviewed with the family at the bedside. Allergies No Known Allergies Allergy (Unverified 05/05/23 23:56) Home medications list reviewed: Yes Home Medications: Atorvastatin Calcium [Lipitor] 40 mg PO BEDTIME 05/06/23 Enoxaparin Sodium [Lovenox 40 MG INJ*] 40 mg SQ DAILY 05/06/23 Furosemide [Lasix 40 MG INJ*] 40 mg IV DAILY 05/06/23 Gabapentin 1 tab PO TID 05/06/23 Hydroxychloroquine [Plaquenil*] 200 mg PO BID 05/06/23 Levothyroxine Sodium [Synthroid] 150 mcg PO DAILY 05/06/23 Quetiapine [Seroquel*] 25 mg PO BEDTIME 05/06/23 carvediloL [Carvedilol] 25 mg PO BID 05/06/23 predniSONE [Prednisone] 5 mg PO DAILY 05/06/23 - Past Medical/Surgical History Diabetic: No -: COPD -: Lupus -: Diastolic CHF. LVH -: Rheumatoid arthritis -: Eye surgery -: Bladder surgery - Social History Alcohol use: No CD- Drugs: No Caffeine use: No Place of Residence: Home Review of Systems is unable to be obtained Physical Examination Temp Pulse Resp BP Pulse Ox 98 F 90 20 126/57 L 100 05/05/23 20:33 05/06/23 06:33 05/05/23 23:58 05/06/23 06:33 05/06/23 06:45 General: In no apparent distress HEENT: Atraumatic Neck: Supple Respiratory: Crackles/rales Cardiovascular: Regular rate/rhythm, Edema Gastrointestinal: Non-distended, No guarding Musculoskeletal: No clubbing, No contractures Integumentary: No rashes, No cyanosis Laboratory Data (last 24 hrs) 05/05/23 05/05/23 20:53 20:53 WBC 12.00 H Hgb 9.3 L Hct 30.0 L Plt Count 159 Sodium 141 Potassium 5.0 BUN 59 H Creatinine 3.62 H Glucose 137 H Imagings Data: [id number] EXAM DESCRIPTION: RADChest Single View05/05/2023 9:39 pm CLINICAL HISTORY: SOB COMPARISON: No comparisons TECHNIQUE: Portable AP view of the chest. FINDINGS: Central congestive changes with interstitial prominence and exaggerated bronchovascular markings. Blunting of the left costophrenic angle may represent combination of atelectasis and epicardial fat prominence. Mild cardiomegaly. No pneumothorax. The mediastinal contours are unremarkable. IMPRESSION: Central congestion/CHF. Left costophrenic angle blunting may represent combination of atelectasis [id number] EXAM DESCRIPTION: RAD - Chest Single View - 05/06/2023 7:26 am CLINICAL HISTORY: ETT placement Chest pain. COMPARISON: Chest Single View dated 05/05/2023 FINDINGS: Portable technique limits examination quality. Tip of the endotracheal tube is at the level of the superior aortic arch. Moderate bilateral pulmonary opacities are present, unchanged. The heart is significantly enlarged.Enteric tube descends in the stomach. Conclusions/Impression: FILI likely CRS CKD with Proteinuria with an unclear baseline -No NSAIDs -Discontinue IVF HTN with CKD/ CHF complicated by hypotension -Hold antihypertensives at this time Diastolic CHF, A/C with Pulmonary Edema Moderate MR LVH Hypercapnic Hypoxic Respiratory Failure, A/C COPD -Ventilatory support as ordered -Discontinue IVF -Diuresis as tolerated Hyperglycemia in the setting of solumedrol -RISS prn Anemia in chronic illness Thrombocytopenia -Monitor CBC SLE RA -Check serologies -Continue solumedrol Hospitalist and ER notes reviewed Thank you kindly for the consultation Greater than 30min patient care Critical Care: Yes
[2023-05-06] MEDS ORDERED: OSELTAMIVIR 75 MG CAP PO SCH (09:00)
[2023-05-06 09:26] LABS: Arterial Blood Carboxyhemoglob 0.9 % (0-1.5); Blood Gas Oxyhemoglobin 93.5 % (94-97); Blood O2 Saturation 96.2 % (92-98.5)
--- NOTE | 2023-05-06 09:32 | RAD REPORT ---
EXAM DESCRIPTION: RAD - Abdomen 1 View (KUB) - 05/06/2023 8:44 am CLINICAL HISTORY: Placement of NGT/OGT. Post Insertion. Pain COMPARISON: No comparisons FINDINGS: Enteric tube tip is in the stomach.
[2023-05-06 11:19] LABS: Uric Acid 10.3 mg/dL (2.6-6.0)
[2023-05-06] MEDS ORDERED: SUCCINYLCHOLINE 20 MG/ML (10 ML) IV ONE (11:46)
[2023-05-06] MEDS ORDERED: ETOMIDATE 20 MG/10 ML VIAL IV ONE (11:46)
[2023-05-06] MEDS: ALBUMIN HUMAN 25% 12.5 GM, FUROSEMIDE 100 MG in NA CHLORIDE 0.9% 40 ML IV SCH ×3 (12:07→22:27)
--- NOTE | 2023-05-06 12:24 | EKG ---
Test Date: 2023-05-05 Test Time: 20:42:29 Paperback Machine Operator: SARAY MEASUREMENT RESULTS: Intervals: Rate: 85 RI: 180 QRSD: 98 QT: 400 QTc: 476 Ferney: P: 22 RI: 180 QRS: 52 T: 15 INTERPRETIVE STATEMENTS: Normal sinus rhythm Normal ECG No previous ECG available for comparison Electronically Signed On 05-06-23 12:23:20 CDT by Eamon Suarez
--- NOTE | 2023-05-06 12:31 | RAD REPORT ---
EXAM DESCRIPTION: US - Renal Ultrasound-Complete - 05/06/2023 9:30 am CLINICAL HISTORY: Renal failure Flank pain COMPARISON: No comparisons FINDINGS: Both kidneys are normal in size, shape and echotexture. The right kidney measures 9.9 x 6.1 x 5.8 cm. 2.6 cm cyst superior right kidney. No hydronephrosis, f ocal mass or perinephric fluid. The left kidney measures 11.7 x 4.9 x 4.6 cm. No hydronephrosis, focal mass or perinephric fluid. The urinary bladder is incompletely distended without gross abnormality seen. IMPRESSION: Unremarkable renal sonogram. Examination is limited by patient clinical status and body habitus.
--- NOTE | 2023-05-06 13:04 | P.PN ---
Subjective Date of Service: 05/06/23 Chief Complaint: Weakness Patient was unresponsive and difficult to arouse. Rapid response was called. Repeat ABG showed PCO2 up to 102. pH 7.0. Patient was transferred to the ICU and intubated. Physical Examination - Vital Signs Temperature: 97.7 F Blood Pressure: 130/71 Pulse: 78 Respirations: 16 Pulse Ox (%): 98 - Studies Laboratory Data (last 24 hrs) 05/05/23 05/05/23 20:53 20:53 WBC 12.00 H Hgb 9.3 L Hct 30.0 L Plt Count 159 Sodium 141 Potassium 5.0 BUN 59 H Creatinine 3.62 H Glucose 137 H Microbiology Data (last 24 hrs): 05/05/23 20:53 Nasopharnyx Influenza Type A Antigen Screen - Final 05/05/23 20:53 Nasopharnyx Influenza Type B Antigen Screen - Final Assessment And Plan - Plan Physical Exam General: Unresponsive, sedated on mechanical ventilation. Neck: Supple, no elevated JVD Respiratory: Diminished, no crackles or wheezes. Cardiovascular: No edema, Normal pulses, Regular rate/rhythm Gastrointestinal: Normal bowel sounds, Soft and benign Musculoskeletal: No clubbing, No swelling Integumentary: No rashes, No breakdown Neurological: Unresponsive, patient moves all extremities. Diagnosis Acute hypoxic and hypercapnic respiratory failure Respiratory acidosis COPD exacerbation Obesity hypoventilation, Morbid obesity. Influenza type a Patient intubated and on mechanical ventilation Pulmonary consulted Continue mechanical ventilation Serial arterial blood gas. Sedation vacation and breathing trials in a.m. Scheduled bronchodilators, IV steroid and IV antibiotics. Acute renal failure Nephrology consulted Continue IV fluid Bishop catheter for strict I&O's Lupus, Arthritis Hold oral home medications for now. Full code DVT prophylaxis: Lovenox
--- NOTE | 2023-05-06 13:38 | ECHO ---
HEIGHT: 5 ft 2 in WEIGHT: 231 lb 0 oz DATE OF STUDY: 05/06/[address]: Raffi Benitez MD 2-DIMENSIONAL: YES M.MODE: YES DOPPLER: YES COLOR FLOW: YES TDS: PORTABLE: YES DEFINITY: BUBBLE STUDY: DIAGNOSIS: RESPIRATORY FAILURE CARDIAC HISTORY: CATHERIZATION: SURGERY: PROSTHETIC VALVE: PACEMAKER: MEASUREMENTS (cm) DIASTOLIC (NORMALS) SYSTOLIC (NORMALS) IVSd 4.2 (0.6-1.2) LA Diam 4.3 (1.9-4.0) LVEF 53% LVIDd 5.1 (3.5-5.7) LVIDs 3.7 (2.0-3.5) %FS 27% LVPWd 1.2 (0.6-1.2) Ao Diam 3.2 (2.0-3.7) 2 DIMENSIONAL ASSESSMENT: RIGHT ATRIUM: NORMAL LEFT ATRIUM: ENLARGED RIGHT VENTRICLE: NORMAL LEFT VENTRICLE: LEFT VENTRICULAR HYPERTROPHY TRICUSPID VALVE: NORMAL MITRAL VALVE: MILD MITRAL REGURGITATION PULMONIC VALVE: NORMAL AORTIC VALVE: NORMAL PERICARDIAL EFFUSION: NONE AORTIC ROOT: NORMAL LEFT VENTRICULAR WALL MOTION: NORMAL DOPPLER/COLOR FLOW: SEE BELOW COMMENTS: 1. NORMAL LEFT VENTRICULAR EJECTION FRACTION 55-60% 2. NORMAL WALL MOTION 3. GRADE I DIASTOLIC DYSFUNCTION 4. LEFT ATRIAL ENLARGEMENT 5. MILD TO MODERATE MITRAL REGURGITATION 6. MILD CONCENTRIC LEFT VENTRICULAR HYPERTROPHY TECHNOLOGIST: PRATIK ALLEN
[2023-05-06] MEDS ORDERED: NA CHLORIDE 0.9% 1,000 ML IV SCH (14:00)
--- NOTE | 2023-05-06 14:27 | RAD REPORT ---
EXAM DESCRIPTION: CT - Head Brain Wo Cont - 05/06/2023 2:03 pm CLINICAL HISTORY: AMS COMPARISON: No comparisons TECHNIQUE: Noncontrast head CT images were obtained without IV contrast. Multiplanar reformats were generated and reviewed. All CT scans are performed using dose optimization technique as appropriate and may include automated exposure control or mA/KV adjustment according to patient size. FINDINGS: Motion artifact limits evaluation. No intracranial hemorrhage, mass, or edema. Midline structures are unremarkable. Normal ventricular caliber for age. He-white matter differentiation is preserved, without evidence of acute infarct. No abnormal extra- axial fluid collections. Mastoid air cells are well aerated. Patient intubated with fluid opacification of the right maxillary sinus and nasopharynx. 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 No acute bony findings. IMPRESSION: No evidence of an acute intracranial process. Findings as above.
[2023-05-06 14:35] LABS: Arterial Blood Carboxyhemoglob 0.9 % (0-1.5); Blood Gas Oxyhemoglobin 93.3 % (94-97); Blood O2 Saturation 95.7 % (92-98.5)
--- NOTE | 2023-05-06 15:14 | CON ---
Date of Consultation: 05/06/2023 Consulting Physician: Dr. Narvaez. Reason For Consultation: Elevated BUN and creatinine. History Of Present Illness: This is a 78-year-old female with significant past medical history of ch ronic kidney disease, SLE, CAD with congestive heart failure, COPD, obstructive sleep apnea. The pat ient was in her regular state of health. The patient recently admitted to [facility] with ac darwin kidney injury, cardiorenal syndrome, and COPD exacerbation. The patient had acute kidney injury, did not require dialysis, left the hospital, then apparently the patient's condition started getting worse with altered mental status. For that reason, she was brought to the hospital, found to have e levation in BUN and creatinine. Creatinine 3.6 with GFR of 12 and marginal hyperkalemia. For that r sreekanth, we have been consulted. The patient denied taking any nonsteroidal, no IV contrast. The maureen ent over the night, respiratory status gets worse, developed severe acidosis. The patient was intuba rajan today in the morning. CO2 down from 94 to 46, and acidosis has been improved from 7.07 to 7.3. The patient denied any chest pain, any nausea, any vomiting. Denied taking any nonsteroidal. No rec ent exposure to contrast. Past Medical History: Includes, 1.COPD. 2.Obstructive sleep apnea. 3.Chronic kidney disease, unknown baseline. 4.CAD with congestive heart failure. 5.SLE. Past Surgical History: Includes bladder surgery. Social History: Denied smoking. Denied drinking. Denied drug abuse. Family History: Positive for hypertension. Home Medications: Include gabapentin, Lasix, Plaquenil, prednisone, atorvastatin, and carvedilol. Current Medications: In the hospital include IV fluid, breathing treatment, azithromycin, fentanyl, lorazepam, Solu-Medrol, midazolam. Review of Systems: Head and Neck: No red eye. No ear pain. GI: No nausea. No vomiting. : No polyuria. No dysuria. No hematuria. SNACK BAR CASHIER: No vaginal discharge. Respiratory: Has shortness of breath. Has cough. Cardiovascular: Has orthopnea. Has leg swelling. Endocrine: No polydipsia. Skin: No rash. Neuro: Has neuropathy. Musculoskeletal: Generalized fatigue. Physical Examination: Vital Signs: When I saw the patient; blood pressure of 138/76, pulse of 88. Chest: Clear on the upper zone crackles bilateral. Heart: S1 and S2. Systolic murmur. Abdomen: Soft, nontender. Extremities: +1 edema. Neuro: Open eyes spontaneously. No focality. Laboratory Data: PH 7.31, CO2 of 46, O2 of 84, base excess -3. WBC 10.1, hemoglobin 8.8. Sodium 14 3, potassium 4.9, bicarb 27, BUN 57, creatinine 3.2, GFR 14, calcium 7.2. BNP 5200. Yesterday lab d cain; creatinine 3.6, potassium 5, bicarb 31. Urinalysis negative for infection, +1 protein. Chest x -ray; cardiomegaly with congestion. Renal ultrasound still pending. Assessment And Plan: 1.Acute kidney injury secondary to cardiorenal. The patient over volume with respiratory distress. 2.I am going to go ahead and discontinue IV fluid, start the patient on low dose of Lasix drip and w e will follow up the patient. We will request the record from [facility]. 3.Discontinue any JORGE inhibitor or ARB to maintain good blood pressure. 4.With the presence of history of SLE and the finding on the lung to rule out pulmonary, renal. I a m going to send for full serology. 5.With the presence of the anemia to rule out light chain disease, we will send for serum protein el ectrophoresis. 6.Hypertension. Currently, blood pressure on the lower side. We will utilize blood pressure for mo re diuresis. We will start Lasix drip. Discontinue all JORGE inhibitor or ARB. 7.Respiratory failure, multifactorial secondary to hypercapnic respiratory failure and over volume, congestive heart failure with exacerbation. Continue vent support. Start Lasix drip. We will follo w up with Primary. 8.Acidosis with contraction alkalosis secondary to poor perfusion. Discontinue IV fluid. Continue vent support. 9.SLE with the presence of acute kidney injury to rule out any pulmonary, renal. We will send for t he serology. 10.Hypotension. The patient is steroid dependent, already on Solu-Medrol. We will follow up with Angie espinoza. Thank you, Dr. Paredes, for allowing us to participate in the care of your patient. Time spent examini ng the patient [id number], reviewing data, lab and radiology, placing order, discussing the case wi th the patient, discussing the case with the steam turbine assembler including nursing staff in ICU and family by bedside more than 75 minutes. FRANKLIN Voice ID: [id number] Report ID: [id number]
[2023-05-06] MEDS: OSELTAMIVIR 30 MG CAP PO SCH (21:25)
[2023-05-06] MEDS: AZITHROMYCIN IV 500 MG in NA CHLORIDE 0.9% 250 ML IVPB SCH (21:25)
[2023-05-07] MEDS: METHYLPREDNISOLONE 40 MG INJ IV SCH ×3 (01:02→21:36)
[2023-05-07] MEDS: HEPARIN 5000 UNIT/ML 1 ML VIAL SQ SCH ×3 (01:02→15:58)
[2023-05-07] MEDS: FENTANYL CITR 100 MCG/2 ML IV PRN ×2 (01:10→11:59)
[2023-05-07] MEDS: IPRATROPIUM BROM 0.5MG/2.5ML NEB SCH ×4 (02:00→20:20)
[2023-05-07] MEDS: propofoL 1,000 MG/100 ML VIAL IV SCH (02:17)
[2023-05-07] MEDS: ALBUMIN HUMAN 25% 12.5 GM, FUROSEMIDE 100 MG in NA CHLORIDE 0.9% 40 ML IV SCH ×3 (03:30→22:23)
[2023-05-07 04:45] LABS: Absolute Lymphocytes (CBC) 0.3 K/uL (0.7-4.9); Hematocrit 24.5 % (36.0-45.0); MCV 84.1 fL (80-100); MPV 10.6 fL (7.6-11.3); Platelets 153 thou/uL (152-406); RBC Red Blood Cell Count 2.92 M/uL (3.86-4.86)
[2023-05-07 05:21] LABS: Albumin 2.7 g/dL (3.4-5.0); Ferritin 26.7 ng/mL (8-388); Magnesium 2.4 mg/dL (1.6-2.4); Phosphorus 4.4 mg/dL (2.5-4.9); Potassium 4.1 mEq/L (3.5-5.1); Troponin High Sensitivity 24.5 pg/mL (<58.9)
--- NOTE | 2023-05-07 07:35 | RAD REPORT ---
EXAM DESCRIPTION: Steve Single View05/07/2023 4:35 am CLINICAL HISTORY: Respiratory failure COMPARISON: May 06, 2023 FINDINGS: Support tubes in position. Opacity behind left aspect of the heart Mild bilateral pulmonary opacities. . The heart is moderately enlarged. IMPRESSION: Mild bilateral pulmonary opacities may indicate interstitial pulmonary Opacity behind left side heart may represent atelectasis or infiltrate
[2023-05-07] MEDS: FAMOTIDINE 20 MG/2 ML VIAL IV SCH (07:55)
[2023-05-07] MEDS: ONDANSETRON 4 MG/2 ML VIAL IV PRN (11:59)
--- NOTE | 2023-05-07 12:12 | P.PN ---
Subjective Date of Service: 05/07/23 Chief Complaint: Respiratory failure Subjective: Improving (Patient is improving hemodynamically stable relatives at the bedside propofol) Review of Systems is unable to be obtained Physical Examination - Vital Signs Temperature: 98.4 F Blood Pressure: 154/75 Pulse: 88 Respirations: 22 Pulse Ox (%): 100 - Physical Exam General: Unresponsive Neck: Supple Respiratory: Clear to auscultation bilaterally Cardiovascular: No edema, Regular rate/rhythm Gastrointestinal: Normal bowel sounds, Soft and benign Assessment And Plan - Current Problems (Diagnosis) (1) Respiratory failure Current Visit: Yes Status: Acute Plan: Kidney 78 years of age admitted with respiratory failure presumed acute history of COPD patient is never smoked cussed with relatives apparently she was doing well was walking around cooking complaining of aching all over and 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
--- NOTE | 2023-05-07 12:57 | PN ---
Date of Progress Note: 05/07/2023 Subjective: Patient was admitted with acute kidney injury secondary to cardiorenal, overvolume with respiratory failure secondary to cardiorenal syndrome. Patient was intubated yesterday, placed the p atient on Lasix drip. Patient was converted from oliguric to nonoliguric. Today, patient was extuba rajan. Patient had very good urine output. On 12 hour, she has 1600, and in the last 5 hours, she has 900, in average of around 160 to 200 per hour. Patient sleepy. Physical Examination: Vital Signs: Blood pressure 154/75, pulse of 88, afebrile. Chest: Crackles, more prominent on the right base. Heart: S1, S2. Systolic murmur. Abdomen: Obese. Could not appreciate any organomegaly. Extremities: +1 edema. Neuro: Patient is sleepy, moving 4 extremities. No focality. Laboratory Data: Hemoglobin of 8, sodium 143, potassium 4.1, bicarb 23, BUN 73. Creatinine 2.9, gege nding down. GFR of 16, trending up. Magnesium 2.4, phosphorus 4.4, iron saturation of 6.7, ferritin of 26, albumin 2.7, corrected calcium is 8.2, TSH 1.1, PTH 209. Urinalysis, +1 protein, no quantifi cation for the proteinuria. Serology still pending. Current Medications: The patient on includes Lasix drip, heparin, atorvastatin, carvedilo l 25 b.i.d., Pepcid. Assessment And Plan: 1.Acute kidney injury secondary to cardiorenal. Patient still overvolume look to me, but had very g ood urine output. I am going to go ahead and decrease Lasix drip to 10 mg per hour. Plan to continu e over the night with it and switch to injection by tomorrow and we will follow up the patient closel y. 2.Hypertension, controlled. We will continue to utilize the blood pressure for more diuresis. 3.Respiratory failure, multifactorial secondary to hypercapnic respiratory failure/cardiorenal syndr ome. We will continue to optimize the fluid status. Follow up with Pulmonary. 4.Congestive heart failure with exacerbation as above. 5.SLE. Given the improvement on the kidney function, doubt to be any autoimmune disease for involve ment of the kidney. We will follow up. 6.Iron-deficiency anemia. We will start the patient on IV iron. 7.Anasarca secondary to cardiorenal as above. Hypothyroidism has been ruled out. P/C ratio is stil l pending. 8.Chronic obstructive pulmonary disease with exacerbation. Follow up with pulmonary. MA/MODL Voice ID: [id number] Report ID: [id number]
[2023-05-07] MEDS ORDERED: ALBUMIN HUMAN 25% 12.5 GM, FUROSEMIDE 100 MG in NA CHLORIDE 0.9% 40 ML IV SCH (13:00)
[2023-05-07] MEDS: GABAPENTIN 300 MG CAP PO SCH ×2 (13:03→21:35)
[2023-05-07] MEDS: SOD FERRIC GLUC COMPLX/SUCROSE 250 MG in NA CHLORIDE 0.9% 250 ML IV SCH (13:04)
--- NOTE | 2023-05-07 13:14 | P.PN ---
Subjective Date of Service: 05/07/23 Chief Complaint: Respiratory failure Patient became more awake with sedation. She was subsequently extubated this morning. Physical Examination - Vital Signs Temperature: 98.4 F Blood Pressure: 154/75 Pulse: 88 Respirations: 22 Pulse Ox (%): 100 Assessment And Plan - Plan Physical Exam General: Unresponsive, sedated on mechanical ventilation. Neck: Supple, no elevated JVD Respiratory: Diminished, no crackles or wheezes. Cardiovascular: No edema, Normal pulses, Regular rate/rhythm Gastrointestinal: Normal bowel sounds, Soft and benign Musculoskeletal: No clubbing, No swelling Integumentary: No rashes, No breakdown Neurological: Unresponsive, patient moves all extremities. Diagnosis Acute hypoxic and hypercapnic respiratory failure Respiratory acidosis COPD exacerbation Obesity hypoventilation, Morbid obesity. Influenza type a Patient successfully extubated to oxygen by nasal cannula today today. Pulmonary is following BiPAP as needed Continue Tamiflu for influenza Scheduled bronchodilators, IV steroid and IV antibiotics. Acute renal failure Nephrology is following. Renal function is trending down Continue IV fluid Bishop catheter in for strict I&O's Lupus, Arthritis Home medications resumed. Full code DVT prophylaxis: Heparin subQ.
[2023-05-07] MEDS ORDERED: HOME MED 1 EA UNK (Gabapentin [Gabapentin] 600 MG Tablet) PO SCH (14:00)
[2023-05-07] MEDS: carvediloL 25 MG TAB PO SCH (15:58)
[2023-05-07] MEDS: TRAMADOL HCL 50 MG TAB PO PRN ×2 (15:58→21:39)
[2023-05-07] MEDS: AZITHROMYCIN IV 500 MG in NA CHLORIDE 0.9% 250 ML IVPB SCH (20:05)
[2023-05-07] MEDS: ATORVASTATIN 40 MG TAB PO SCH (21:35)
[2023-05-07] MEDS: QUETIAPINE 25 MG TAB PO SCH (21:35)
[2023-05-07] MEDS: HYDROXYCHLOROQUINE 200MG TAB PO SCH (21:35)
[2023-05-07] MEDS: CEFTRIAXONE 1,000 MG in NA CHLORIDE 0.9% 50 ML IVPB SCH (21:36)
[2023-05-07] MEDS: OSELTAMIVIR 30 MG CAP PO SCH (21:37)
[2023-05-08] MEDS: HEPARIN 5000 UNIT/ML 1 ML VIAL SQ SCH ×3 (01:12→17:00)
[2023-05-08] MEDS: IPRATROPIUM BROM 0.5MG/2.5ML NEB SCH ×4 (02:00→20:00)
[2023-05-08 02:28] LABS: Rheumatoid Factor NEG (NEG)
[2023-05-08 04:44] LABS: Absolute Lymphocytes (CBC) 0.2 K/uL (0.7-4.9); Lymphocytes % 3.9 % (15.3-44.8); MCV 84.6 fL (80-100); MPV 10.8 fL (7.6-11.3); Platelets 134 thou/uL (152-406); RBC Red Blood Cell Count 3.07 M/uL (3.86-4.86)
[2023-05-08 05:08] LABS: Albumin 2.8 g/dL (3.4-5.0); Magnesium 2.5 mg/dL (1.6-2.4); Phosphorus 6.3 mg/dL (2.5-4.9); Potassium 4.3 mEq/L (3.5-5.1); Troponin High Sensitivity 46.5 pg/mL (<58.9)
[2023-05-08 05:25] LABS: Blood Morphology Comment NOT SEEN (NOT SEEN); Platelet Estimate ADEQ
[2023-05-08] MEDS: LEVOTHYROXINE SOD 0.075 MG TAB PO SCH (05:49)
--- NOTE | 2023-05-08 08:02 | RAD REPORT ---
EXAM DESCRIPTION: Steve Single View05/08/2023 5:49 am CLINICAL HISTORY: Respiratory failure COMPARISON: May 07, 2023 FINDINGS: Mild bilateral pulmonary opacities unchanged. Endotracheal and nasogastric tubes been removed Heart remains enlarged IMPRESSION: Mild bilateral pulmonary opacities unchanged may represent mild interstitial pulmonary e markel
[2023-05-08] MEDS: HYDROXYCHLOROQUINE 200MG TAB PO SCH ×2 (08:45→20:15)
[2023-05-08] MEDS: GABAPENTIN 300 MG CAP PO SCH ×3 (08:46→20:15)
[2023-05-08] MEDS: FAMOTIDINE 20 MG/2 ML VIAL IV SCH (08:46)
[2023-05-08] MEDS: METHYLPREDNISOLONE 40 MG INJ IV SCH (08:46)
[2023-05-08] MEDS: carvediloL 25 MG TAB PO SCH ×2 (08:46→16:59)
[2023-05-08] MEDS: ALBUMIN HUMAN 25% 12.5 GM, FUROSEMIDE 100 MG in NA CHLORIDE 0.9% 40 ML IV SCH ×2 (08:46→20:17)
--- NOTE | 2023-05-08 09:27 | P.PN ---
Subjective Date of Service: 05/08/23 Chief Complaint: Respiratory failure Subjective: Improving (Patient is improving doing well was extubated yesterday little lethargic) Review of Systems General: Weakness Respiratory: Shortness of Breath Physical Examination - Vital Signs Temperature: 97 F Blood Pressure: 141/51 Pulse: 84 Respirations: 26 Pulse Ox (%): 92 - Physical Exam General: Alert, Oriented x1 Respiratory: Clear to auscultation bilaterally, Diminished Cardiovascular: No edema, Regular rate/rhythm, Normal S1 S2 Assessment And Plan - Current Problems (Diagnosis) (1) Respiratory failure Current Visit: Yes Status: Acute Plan: Patient is 78 years of age admitted with respiratory failure she was extubated yesterday doing better recheck arterial blood gases prior history of obstructive airways disease renal function is improving seen by nephrology evidence of ongoing sepsis oxygenation vital signs stable x-ray shows some cardiomegaly patient is on Lasix drip stable to transfer to the Qualifiers: Chronicity: unspecified Physician Review: Patient Assessed, Agree with Above Assessment and Plan
[2023-05-08] MEDS: THIAMINE HCL 100 MG TABLET PO SCH ×2 (11:06→20:15)
--- NOTE | 2023-05-08 14:20 | P.PN ---
Subjective Date of Service: 05/08/23 Chief Complaint: Respiratory failure Subjective: Other (bedbound.) Physical Examination - Vital Signs Temperature: 97 F Blood Pressure: 134/91 Pulse: 71 Respirations: 19 Pulse Ox (%): 100 - Physical Exam General: Other (appears as her stated age) HEENT: Atraumatic, Normocephalic Neck: Supple, JVD not distended Respiratory: Other (symmetric chest expansion) Cardiovascular: No rubs, No murmurs Gastrointestinal: Soft and benign, No rebound Musculoskeletal: No clubbing Integumentary: No warmth Neurological: Normal tone Urinary: Other (nno bladder distention) External genitalia: Deferred Rectal: Deferred Assessment And Plan - Plan 1. Acute kidney injury secondary to cardiorenal. Serum creatinine decreased to 2.6. F/u serum iPTH. Salt overloaded w/ 2+ BLE edema. Cont lasix gtt. liberal by mouth fluid intake. 2. COPD exacerbation. Per other services. 3. Acute on chronic diastolic heart failure. BNP elevated. TTE on 05/06/2023 showed EF normal at 55-60%, rate 1 diastolic dysfunction, left atrial enlargement.Lasix drip as above. 4. Hypernatremia. Serum sodium 146. Weight 105.9 kg. Total body water 47.6 L. Free water deficit 2.1 L plus ongoing losses. Give IV thiamine then D5 water IV drip 100 cc/h 2 L. 5. Hypocalcemia. Calcium IV repletion today. 6. Hypermagnesemia. Monitor. 7. Hyperphosphatemia. Monitor. 8. Anemia. Monitor CBC. 9. SLE. Per other services. Physician Review: Patient Assessed, Agree with Above Assessment and Plan
--- NOTE | 2023-05-08 14:40 | P.PN ---
Subjective Date of Service: 05/08/23 Chief Complaint: Respiratory failure Patient is awake and alert and interactive. She is answering questions appropriately. She worked with physical therapy yesterday. She is tolerating diet. Physical Examination - Vital Signs Temperature: 97 F Blood Pressure: 134/91 Pulse: 71 Respirations: 19 Pulse Ox (%): 100 Assessment And Plan - Plan Physical Exam General: Awake and interactive, NAD Neck: Supple, no elevated JVD Respiratory: Diminished, no crackles or wheezes. Cardiovascular: No edema, Normal pulses, Regular rate/rhythm Gastrointestinal: Normal bowel sounds, Soft and benign Musculoskeletal: No clubbing, No swelling Integumentary: No rashes, No breakdown Neurological: No focal motor deficit. Diagnosis Acute hypoxic and hypercapnic respiratory failure Respiratory acidosis COPD exacerbation Obesity hypoventilation, Morbid obesity. Influenza type a Patient successfully extubated to oxygen by nasal cannula 05/07. Pulmonary is following She is tolerating oxygen by nasal cannula. Repeat ABG shows PCO2 of 56 indicating mild CO2 retention. BiPAP as needed Continue Tamiflu for influenza Scheduled bronchodilators, IV steroid and IV antibiotics. Close monitoring. Acute renal failure Nephrology is following. Renal function is improving slowly. Status post IV albumin yesterday. Bishop catheter in for strict I&O's Lupus, Arthritis Continue Home medications. Chronic anemia Transfuse as needed for hemoglobin less than 7. Full code DVT prophylaxis: Heparin subQ.
[2023-05-08] MEDS ORDERED: CALCIUM GLUCONATE 1 GM IVPB 2 GM/100 ML BAG IV ONE (15:00)
[2023-05-08] MEDS ORDERED: THIAMINE 200 MG/2 ML INJ IVP STA (15:30)
[2023-05-08] MEDS: D5W 1,000 ML IV SCH (15:50)
[2023-05-08] MEDS: QUETIAPINE 25 MG TAB PO SCH (20:15)
[2023-05-08] MEDS: ATORVASTATIN 40 MG TAB PO SCH (20:15)
[2023-05-08] MEDS: TRAMADOL HCL 50 MG TAB PO PRN (20:16)
[2023-05-08] MEDS: CEFDINIR 300 MG CAP PO SCH (20:16)
[2023-05-08] MEDS: OSELTAMIVIR 30 MG CAP PO SCH (20:17)
[2023-05-09] MEDS: IPRATROPIUM BROM 0.5MG/2.5ML NEB SCH ×2 (01:20→08:00)
[2023-05-09] MEDS: HEPARIN 5000 UNIT/ML 1 ML VIAL SQ SCH ×3 (03:14→16:58)
[2023-05-09] MEDS: D5W 1,000 ML IV SCH (03:14)
[2023-05-09 04:57] LABS: Absolute Lymphocytes (CBC) 0.3 K/uL (0.7-4.9); Hematocrit 25.5 % (36.0-45.0); Lymphocytes % 5.2 % (15.3-44.8); MCV 84.7 fL (80-100); MPV 10.6 fL (7.6-11.3); Platelets 132 thou/uL (152-406); RBC Red Blood Cell Count 3.01 M/uL (3.86-4.86)
[2023-05-09 05:11] LABS: Potassium 3.8 mEq/L (3.5-5.1)
[2023-05-09] MEDS: LEVOTHYROXINE SOD 0.075 MG TAB PO SCH (06:45)
[2023-05-09] MEDS ORDERED: KCL 20 MEQ/100 mL IVPB 20 MEQ/100 ML BAG IV SCH (07:00)
[2023-05-09] MEDS: carvediloL 25 MG TAB PO SCH ×2 (08:03→16:57)
[2023-05-09] MEDS: THIAMINE HCL 100 MG TABLET PO SCH ×2 (08:03→21:15)
[2023-05-09] MEDS: HYDROXYCHLOROQUINE 200MG TAB PO SCH ×2 (08:03→21:46)
[2023-05-09] MEDS: GABAPENTIN 300 MG CAP PO SCH ×3 (08:03→21:15)
[2023-05-09] MEDS: TRAMADOL HCL 50 MG TAB PO PRN (08:03)
[2023-05-09] MEDS: CEFDINIR 300 MG CAP PO SCH ×2 (08:03→21:15)
[2023-05-09] MEDS: AZITHROMYCIN 250 MG TAB PO SCH (08:03)
--- NOTE | 2023-05-09 08:23 | RAD REPORT ---
[facility] 6:47 am CLINICAL HISTORY: Respiratory failure COMPARISON: Chest Single View dated 05/08/2023; Chest Single View dated 05/07/2023; Abdomen 1 View ( KUB) dated 05/06/2023; Chest Single View dated 05/06/2023 TECHNIQUE: Portable AP view of the chest. FINDINGS: Progressive central interstitial prominence and fluffy opacities particularly at the left mid to lower lung. Probable worsening left effusion up to moderate size. No pneumothorax. The cardio mediastinal contours are unremarkable. IMPRESSION: Worsening central congestive changes or edema. Worsening left pleural effusion, up to mo derate in size.
[2023-05-09] MEDS: ALBUMIN HUMAN 25% 12.5 GM, FUROSEMIDE 100 MG in NA CHLORIDE 0.9% 40 ML IV SCH (08:32)
--- NOTE | 2023-05-09 10:09 | P.PN ---
Subjective Date of Service: 05/09/23 Chief Complaint: Respiratory failure Subjective: Improving (Patient is improving she is doing much better alert oriented responsive cooperative hypoventilating) Review of Systems General: Weakness Respiratory: Shortness of Breath Physical Examination - Vital Signs Temperature: 97 F Blood Pressure: 134/91 Pulse: 71 Respirations: 19 Pulse Ox (%): 100 - Physical Exam General: Alert, In no apparent distress, Oriented x3 Respiratory: Clear to auscultation bilaterally, Diminished Cardiovascular: No edema, Regular rate/rhythm Assessment And Plan - Current Problems (Diagnosis) (1) Respiratory failure Current Visit: Yes Status: Acute Plan: Patient appears to be chronically hypercapnic/differential diagnosis includes COPD obesity hypoventilation syndrome have underlying obstructive sleep apnea patient will need outpatient sleep study trial of bronchodilators outpatient pulmonary function testing renal function is improving patient's vital signs are stable have added Brovana chest x-ray does show cardiomegaly Qualifiers: Chronicity: unspecified Physician Review: Patient Assessed, Agree with Above Assessment and Plan
--- NOTE | 2023-05-09 12:08 | P.PN ---
Subjective Date of Service: 05/09/23 Chief Complaint: Respiratory failure Subjective Pt admitted with SOB, had FILI , cr improving on lasix Will stop lasix drip and switch to IVP General: Awake, alert, oriented x3, in mild distress, looks chronically ill Neck: Supple. No elevated JVD. Heart: Regular rate and rhythm. Normal S1, S2. Chest: Mild bilateral rales. Abdomen: Soft, nontender. Extremities: trace edema. A/p # Acute kidney injury secondary to cardiorenal. will switch lasix to drip renal diet renal dose meds #CHF Cont lasix daily Wt I/O #Hypocalcemia Cont supplement #. Hypermagnesemia. Monitor. # Hyperphosphatemia. Monitor. will hold on binders for now # Anemia. Monitor CBC Transfuse if hB <7.0 . #HX of . SLE. . Physical Examination - Vital Signs Temperature: 97 F Blood Pressure: 134/91 Pulse: 71 Respirations: 19 Pulse Ox (%): 100 Assessment And Plan Physician Review: Patient Assessed, Agree with Above Assessment and Plan
--- NOTE | 2023-05-09 13:20 | P.PN ---
Subjective Date of Service: 05/09/23 Chief Complaint: Respiratory failure Patient is awake and alert and interactive. She has no complaints. She sat up in her chair with therapy yesterday. She is tolerating diet. Physical Examination - Vital Signs Temperature: 97 F Blood Pressure: 134/91 Pulse: 71 Respirations: 19 Pulse Ox (%): 100 Assessment And Plan - Plan Physical Exam General: Awake and interactive, NAD Respiratory: Diminished, no crackles or wheezes. Cardiovascular: No edema, Normal pulses, Regular rate/rhythm Gastrointestinal: Normal bowel sounds, Soft and benign Musculoskeletal: No clubbing, No swelling Integumentary: No rashes, No breakdown Neurological: No focal motor deficit. Diagnosis Acute hypoxic and hypercapnic respiratory failure Respiratory acidosis COPD exacerbation Obesity hypoventilation, Morbid obesity. Influenza type A Status post intubation for 1 day. Extubated to oxygen by nasal cannula 05/07. Pulmonary is following She is tolerating oxygen by nasal cannula. Repeat ABG shows PCO2 of 56 indicating mild CO2 retention. BiPAP as needed Continue Tamiflu for influenza Scheduled bronchodilators, IV steroid and oral cefdinir. Increase activity as tolerated. Continue PT. Acute renal failure Nephrology is following. Renal function is improving slowly. Status post IV albumin. IV Lasix per nephrology Monitor renal function. Bishop catheter in for strict I&O's Lupus, Arthritis Continue Home medications. Chronic anemia Transfuse as needed for hemoglobin less than 7. Full code DVT prophylaxis: Heparin subQ. Disposition: Home with home health.
[2023-05-09] MEDS: FUROSEMIDE 40 MG/4 ML VIAL IV SCH ×2 (15:16→21:15)
[2023-05-09] MEDS: ARFORMOTEROL TARTRATE 15 MCG/2 ML VIAL.NEB NEB SCH (20:05)
[2023-05-09] MEDS: ATORVASTATIN 40 MG TAB PO SCH (21:14)
[2023-05-09] MEDS: OSELTAMIVIR 30 MG CAP PO SCH (21:15)
[2023-05-09] MEDS: QUETIAPINE 25 MG TAB PO SCH (21:15)
[2023-05-10] MEDS: HEPARIN 5000 UNIT/ML 1 ML VIAL SQ SCH ×3 (01:10→17:00)
[2023-05-10] MEDS: LEVOTHYROXINE SOD 0.075 MG TAB PO SCH (06:18)
[2023-05-10 06:49] LABS: Albumin 2.8 g/dL (3.4-5.0); Phosphorus 4.7 mg/dL (2.5-4.9); Potassium 4.3 mEq/L (3.5-5.1)
[2023-05-10] MEDS: ARFORMOTEROL TARTRATE 15 MCG/2 ML VIAL.NEB NEB SCH ×2 (08:10→20:00)
[2023-05-10] MEDS: HYDROXYCHLOROQUINE 200MG TAB PO SCH ×2 (09:00→21:12)
[2023-05-10] MEDS: FUROSEMIDE 40 MG/4 ML VIAL IV SCH ×3 (09:39→21:00)
[2023-05-10] MEDS: carvediloL 25 MG TAB PO SCH ×2 (09:40→17:00)
[2023-05-10] MEDS: AZITHROMYCIN 250 MG TAB PO SCH (09:40)
[2023-05-10] MEDS: CEFDINIR 300 MG CAP PO SCH ×2 (09:40→21:12)
[2023-05-10] MEDS: THIAMINE HCL 100 MG TABLET PO SCH ×2 (09:41→21:12)
[2023-05-10] MEDS: GABAPENTIN 300 MG CAP PO SCH ×3 (09:41→21:12)
[2023-05-10] MEDS: SOD FERRIC GLUC COMPLX/SUCROSE 250 MG in NA CHLORIDE 0.9% 250 ML IV SCH (13:14)
[2023-05-10] MEDS ORDERED: NA CHLORIDE 0.9% 250 ML ONE (13:27)
[2023-05-10 14:16] LABS: Albumin, (SPE) 2.8 g/dL (3.8-4.8); Alpha-1-Globulins 0.4 g/dL (0.2-0.3); Alpha-2-Globulins 0.7 g/dL (0.5-0.9); Gamma Globulins 0.7 g/dL (0.8-1.7); INTERPRETATION REPORT
--- NOTE | 2023-05-10 14:34 | P.PN ---
Subjective Date of Service: 05/10/23 Chief Complaint: Respiratory failure Patient is awake and alert and interactive. She has no complaints. She reports good sleep last night. Serum creatinine is trending down. Physical Examination - Vital Signs Temperature: 97.5 F Blood Pressure: 99/57 Pulse: 73 Respirations: 20 Pulse Ox (%): 97 Assessment And Plan - Plan Physical Exam General: Awake and interactive, NAD Respiratory: Diminished, no crackles or wheezes. Cardiovascular: No edema, Normal pulses, Regular rate/rhythm Gastrointestinal: Normal bowel sounds, Soft and benign Musculoskeletal: No clubbing, No swelling Integumentary: No rashes, No breakdown Neurological: No focal motor deficit. Diagnosis Acute hypoxic and hypercapnic respiratory failure Respiratory acidosis COPD exacerbation Obesity hypoventilation, Morbid obesity. Influenza type A Status post intubation for 1 day. Extubated to oxygen by nasal cannula 05/07. Pulmonary is following She is tolerating oxygen by nasal cannula. Elevated bicarb likely a combination of CO2 retention and mostly contraction alkalosis-patient is on IV Lasix per Nephrology BiPAP as needed Continue Tamiflu for influenza Scheduled bronchodilators, IV steroid and oral cefdinir. Increase activity as tolerated. Wean off oxygen as tolerated. Continue PT. Acute renal failure Nephrology is following. Renal function is improving slowly. Status post IV albumin. IV Lasix per nephrology Bishop catheter in for strict I&O's Lupus, Arthritis Continue Home medications. Chronic anemia Transfuse as needed for hemoglobin less than 7. Full code DVT prophylaxis: Heparin subQ. Disposition: Home with home health.
--- NOTE | 2023-05-10 15:20 | P.PN ---
Subjective Date of Service: 05/10/23 Chief Complaint: Respiratory failure Subjective Pt admitted with SOB, had FILI , cr improving on lasix Today feels better Cr improving consider to switch to PO lasix in 1-2 days PT/OT General: Awake, alert, oriented x3, in mild distress, looks chronically ill Neck: Supple. No elevated JVD. Heart: Regular rate and rhythm. Normal S1, S2. Chest: Mild bilateral rales. Abdomen: Soft, nontender. Extremities: trace edema. A/p # Acute kidney injury secondary to cardiorenal. consider to switch to PO lasix in 1-2 days renal diet renal dose meds #CHF Cont lasix daily Wt I/O consider to switch to PO lasix in 1-2 days #Hypocalcemia Cont supplement #. Hypermagnesemia. Monitor. # Hyperphosphatemia. Monitor. will hold on binders for now # Anemia. Monitor CBC Transfuse if hB <7.0 . #HX of . SLE. . Physical Examination - Vital Signs Temperature: 97.5 F Blood Pressure: 99/57 Pulse: 73 Respirations: 20 Pulse Ox (%): 97 Assessment And Plan Physician Review: Patient Assessed, Agree with Above Assessment and Plan
[2023-05-10] MEDS: ATORVASTATIN 40 MG TAB PO SCH (21:12)
[2023-05-10] MEDS: QUETIAPINE 25 MG TAB PO SCH (21:12)
[2023-05-11] MEDS: HEPARIN 5000 UNIT/ML 1 ML VIAL SQ SCH ×3 (01:07→15:59)
[2023-05-11] MEDS: LEVOTHYROXINE SOD 0.075 MG TAB PO SCH (06:37)
[2023-05-11] MEDS: TRAMADOL HCL 50 MG TAB PO PRN (06:37)
[2023-05-11 06:51] LABS: Albumin 2.6 g/dL (3.4-5.0); Phosphorus 4.9 mg/dL (2.5-4.9); Potassium 4.1 mEq/L (3.5-5.1)
[2023-05-11] MEDS: ARFORMOTEROL TARTRATE 15 MCG/2 ML VIAL.NEB NEB SCH (07:55)
[2023-05-11] MEDS: carvediloL 25 MG TAB PO SCH ×2 (08:00→15:24)
[2023-05-11] MEDS: FUROSEMIDE 40 MG/4 ML VIAL IV SCH ×2 (09:00→13:46)
[2023-05-11] MEDS ORDERED: NA CHLORIDE 0.9% 300 ML IV ONE (10:00)
[2023-05-11] MEDS ORDERED: ALBUMIN HUMAN 25% 100 ML IV ONE (10:00)
[2023-05-11] MEDS: CEFDINIR 300 MG CAP PO SCH (10:03)
[2023-05-11] MEDS: HYDROXYCHLOROQUINE 200MG TAB PO SCH (10:03)
[2023-05-11] MEDS: AZITHROMYCIN 250 MG TAB PO SCH (10:03)
[2023-05-11] MEDS: THIAMINE HCL 100 MG TABLET PO SCH (10:04)
[2023-05-11] MEDS: GABAPENTIN 300 MG CAP PO SCH ×2 (10:04→15:27)
[2023-05-11 12:17] LABS: Arterial Blood Carboxyhemoglob 0.7 % (0-1.5); Blood Gas Oxyhemoglobin 93.9 % (94-97); Blood O2 Saturation 96.6 % (92-98.5)
[2023-05-11] MEDS ORDERED: MIDODRINE HCL 5 MG TABLET PO SCH (14:00)
--- NOTE | 2023-05-11 15:53 | P.DS ---
Admission Date: 05/05/23 Discharge Date: 05/11/23 Disposition: HOSPICE-HOME Discharge Condition: FAIR Reason for Admission: Respiratory failure Brief History of Present Illness: 78-year-old female with a past medical history of ED, presented to the emergency room via EMS with weakness and back pain. Patient reported back pain is chronic. Family is at bedside reports patient was confused, and had recent urinary tract infection. No reported fever, chills, nausea vomiting diarrhea. ER evaluation Signs: BP 104 / 67; Pulse 80; Resp 15; Temp 98; Pulse Ox 98% on 2 lpm NC; influenza A+.patient was admitted for further management. Hospital Course: Diagnosis Acute hypoxic and hypercapnic respiratory failure Respiratory acidosis COPD exacerbation Obesity hypoventilation, Morbid obesity. Influenza type A Status post intubation for 1 day. Extubated to oxygen by nasal cannula 05/07. Patient seen and evaluated by pulmonary and nephrology She is tolerating oxygen by nasal cannula briefly but developed CO2 retention with respiratory acidosis again BiPAP therapy recommended but at this time family opted for hospice. They were aware of the fact that patient had to be subsequently intubated previously when she needed BiPAP for the same reason. Patient made DNR. Social service consulted for home with hospice arrangement. Acute renal failure Nephrology is following. Renal function is improved slowly to 2.03 which is probably her baseline. Status post IV albumin infusions. Patient was treated with IV Lasix. Lupus, Arthritis Continued Home medications. Chronic anemia Was stable during the hospital stay Vital Signs/Physical Exam: Temp Pulse Resp BP Pulse Ox 96.3 F L 80 20 102/48 L 100 05/11/23 12:00 05/11/23 12:00 05/11/23 12:00 05/11/23 12:00 05/11/23 12:00 General: Confused HEENT: Mucous membr. moist/pink Neck: Supple, JVD not distended Respiratory: Diminished (Bilateral) Cardiovascular: Regular rate/rhythm, Normal S1 S2 Gastrointestinal: Soft and benign, Non-distended Musculoskeletal: No erythema Integumentary: No cyanosis Neurological: Other (Lethargic, confused.) Laboratory Data at Discharge: WBC 5.80 thou/uL (4.3-10.9) 05/09/23 04:03 Hgb 8.3 g/dL (12.0-15.0) L 05/09/23 04:03 Hct 25.5 % (36.0-45.0) L 05/09/23 04:03 Plt Count 132 thou/uL (152-406) L 05/09/23 04:03 Sodium 144 mEq/L (136-145) 05/11/23 05:31 Potassium 4.1 mEq/L (3.5-5.1) 05/11/23 05:31 BUN 101 mg/dL (7-18) H 05/11/23 05:31 Creatinine 2.07 mg/dL (0.55-1.02) H 05/11/23 05:31 Glucose 131 mg/dL (74-106) H 05/11/23 05:31 Uric Acid 10.3 mg/dL (2.6-6.0) H 05/06/23 02:16 Phosphorus 4.9 mg/dL (2.5-4.9) 05/11/23 05:31 Magnesium 2.5 mg/dL (1.6-2.4) H 05/08/23 04:22 Home Medications: Atorvastatin Calcium [Lipitor] 40 mg PO BEDTIME 05/06/23 Gabapentin 1 tab PO TID 05/06/23 Hydroxychloroquine [Plaquenil*] 200 mg PO BID 05/06/23 Levothyroxine Sodium [Synthroid] 150 mcg PO DAILY 05/06/23 carvediloL [Carvedilol] 25 mg PO BID 05/06/23 Albuterol Neb [Proventil 0.083% Neb Soln] 2.5 mg NEB [id number] PRN #120 amp 05/11/23 New Medications: Albuterol Neb [Proventil 0.083% Neb Soln] 2.5 mg NEB [id number] PRN #120 amp PRN Reason: Shortness Of Breath Time spent managing pt's care (in minutes): 40
--- NOTE | 2023-05-12 01:00 | PN ---
Date of Progress Note: 05/11/2023 Chief Complaint: Acute kidney injury, shortness of breath, hypoxemic respiratory failure. Subjective: The patient is on IV Lasix for cardiorenal syndrome and acute kidney injury. Urine outp ut has improved. Review of Systems: Patient denies chest pain or palpitation, although she is lethargic. She cannot provide review of sy stems. Physical Examination: Lungs: Few rhonchi. Heart: S1, S2. Abdomen: Obese, soft. Extremities: Edema present. Impression And Plan: 1.Acute kidney injury secondary to cardiorenal syndrome. Continue diuretics for volume control. Mo nitor blood pressure. Hold diuretic if systolic blood pressure is below 110. Plan is to check . 2.Congestive heart failure, on Lasix. Monitor electrolytes including magnesium. 3.Hypocalcemia. Continue supplement. 4.Hypermagnesemia. Monitor magnesium level. 5.Hyperphosphatemia. Monitor and hold binders for now and monitor calcium and phosphorus product. 6.Anemia in chronic kidney disease. Monitor hemoglobin level. Plan transfusion if hemoglobin below 7. EB/MODL Voice ID: [id number] Report ID: [id number]
[2023-05-14 12:48] VITALS: TEMP 96.5
[2023-05-14 12:49] VITALS: BP 117/53
[2023-05-14 13:01] VITALS: O2SAT 95
== END 2023-05-11 19:30 | disposition hospice, home (50) | DRG 208 ==
LOC: ER 20:30 → 2ND 22:42 → 3RD-ICU 05-06 06:34 → 4TH 05-09 13:40
PROVIDERS: ADMIT Internal Medicine; ATTEND Internal Medicine
PROC: 5A1945Z Respiratory Ventilation, 24-96 Consecutive Hours (ICD-10-PCS; principal; 2023-05-06)
PROC: 0BH17EZ Insertion of Endotracheal Airway into Trachea, Via Natural or Artificial Opening (ICD-10-PCS; 2023-05-06)
DX: J96.01 Acute respiratory failure with hypoxia (principal); I50.33 Acute on chronic diastolic (congestive) heart failure; J44.1 Chronic obstructive pulmonary disease with (acute) exacerbation; N17.9 Acute kidney failure, unspecified; I13.0 Hypertensive heart and chronic kidney disease with heart failure and stage 1 through stage 4 chronic kidney disease, or unspecified chronic kidney disease; E66.2 Morbid (severe) obesity with alveolar hypoventilation; Z68.41 Body mass index [BMI] 40.0-44.9, adult; E87.20 Acidosis, unspecified; E87.0 Hyperosmolality and hypernatremia; J96.02 Acute respiratory failure with hypercapnia; N18.9 Chronic kidney disease, unspecified; J10.1 Influenza due to other identified influenza virus with other respiratory manifestations; I34.0 Nonrheumatic mitral (valve) insufficiency; D69.6 Thrombocytopenia, unspecified; D50.9 Iron deficiency anemia, unspecified; M32.9 Systemic lupus erythematosus, unspecified; E87.5 Hyperkalemia; E83.41 Hypermagnesemia; E83.39 Other disorders of phosphorus metabolism; E83.51 Hypocalcemia; M19.90 Unspecified osteoarthritis, unspecified site; I25.10 Atherosclerotic heart disease of native coronary artery without angina pectoris; R73.9 Hyperglycemia, unspecified; Z66 Do not resuscitate; Z78.1 Physical restraint status; Z79.02 Long term (current) use of antithrombotics/antiplatelets; Z74.01 Bed confinement status; Z79.52 Long term (current) use of systemic steroids; Z79.890 Hormone replacement therapy; Z79.899 Other long term (current) drug therapy; Z20.822 Contact with and (suspected) exposure to COVID-19
CPT/HCPCS: 36415; 36600; 70450; 71045; 74018; 76770; 80048; 80069; 81001; 82306; 82550; 82607; 82728; 82805; 82947; 83520; 83540; 83735; 83880; 83970; 84165; 84443; 84466; 84484; 84550; 85025; 85044; 86021; 86038; 86160; 86225; 86430; 86803; 87040; 87635; 87804; 93005; 93306; 94002; 94003; 94640; 94660; 94760; 97116; 97161; 97530; 99285; J0612; J0696; J1644; J1940; J2250; J2405; J2704; J2916; J2920; J3010; J3411; J3480; J7030; J7040; J7050; J7605; J7613; J7644; P9047